=== PATIENT | female | born 1980 | race Caucasian/White ===

== ENCOUNTER 2019-04-03 09:17 | Outpatient (REF) | payer MEDICAID, SELFPAY ==
--- NOTE | 2019-04-03 08:45 | PAPFT_PTH ---
PATIENT: Joaquim Dunn LOC: [facility] U#:[id number] AGE/SX: 38/F ROOM: RE04/03/[address]: Jax Conklin : 1980 BED: DIS: 04/03/2019 SPEC #: [id number] RECD: 04/03/19 12:59 STATUS: LARS REQ #: [id number] CARROL: 04/03/19 08:[address]: Jxa Conklin DEPT: [facility] Cytology RECD BY: Syeda Gamez Tissues: 1 - CX/ENDOCX FOR PAP SMEARS Procedures: PAP THIN PREP/[facility] Screening HPV DNA PROBE Comments: [id number]
== END 2019-04-03 09:37 ==
LOC: NCHCN 09:17
PROVIDERS: PCP Nurse Practitioner Family; Visit Provider Nurse Practitioner Family
DX: Z12.4 Encounter for screening for malignant neoplasm of cervix (principal); Z11.51 Encounter for screening for human papillomavirus (HPV)
CPT/HCPCS: 88142; 87624

== ENCOUNTER 2019-04-14 15:36 | Outpatient (REF) | payer MEDICAID, SELFPAY ==
[2019-04-14 16:25] LABS: Clarity CLEAR; Mononuclear Cells 96 % (0-0); Nucleated Cells 384 /MM3 (0-0); Polynuclear Cells 4 % (0-0); Source R KNEE
== END 2019-04-14 15:56 ==
LOC: NCHCN 15:36
PROVIDERS: PCP Nurse Practitioner Family; Visit Provider Family Medicine
DX: M25.462 Effusion, left knee (principal)
CPT/HCPCS: 89051; 89060

== ENCOUNTER 2019-04-17 07:16 | Outpatient (CLI) | payer MEDICAID, SELFPAY ==
--- NOTE | 2019-04-17 08:23 | DI.RAD_ITS ---
SYMPTOM/DIAGNOSIS: PAIN M25.562, EFFUSION LT KNEE M25.462 RIGHT KNEE: The joint spaces are well maintained. There may be a small joint effusion. There are no significant degenerative changes. There is a small fibrous cortical defect of the proximal fibula. IMPRESSION: question of a small joint effusion.
== END 2019-04-17 07:36 ==
PROVIDERS: PCP Nurse Practitioner Family; Visit Provider Family Medicine
DX: M25.562 Pain in left knee (principal)
CPT/HCPCS: 73562

== ENCOUNTER 2019-06-19 14:15 | Outpatient (REF) | payer MEDICAID, SELFPAY ==
[2019-06-19 19:08] LABS: TSH (W/Ref FT4) 1.19 uIU/mL (0.36-3.74)
== END 2019-06-19 14:35 ==
LOC: NCHCN 14:15
PROVIDERS: PCP Nurse Practitioner Family; Visit Provider Nurse Practitioner Family
DX: E01.0 Iodine-deficiency related diffuse (endemic) goiter (principal)
CPT/HCPCS: 84443

== ENCOUNTER 2019-06-29 01:16 | Outpatient (CLI) | payer MEDICAID, SELFPAY ==
--- NOTE | 2019-06-29 12:00 | DI.US_ITS ---
EXAM: US THYROID CLINICAL HISTORY: THYROMEGALY E01.0 TECHNIQUE: Ultrasound performed using standard protocol. COMPARISON: No previous for comparison. FINDINGS: Right lobe measures 5.4 x 1.5 x 1.2 cm. It is homogeneous. There is normal blood flow. No discrete mass is identified. The left lobe measures 3.7 x 1.1 x 1.5 cm. It is homogeneous. There is a 0.6 by 0.3 by 0.5 cm hypoec hoic well circumscribed nodule in the left lobe of the thyroid gland. There is peripheral blood flow noted. The isthmus is within normal limits at 2.2 mm. IMPRESSION: Solitary 0.6 cm hypoechoic nodule in the left lobe of the thyroid gland. No sonographically suspicio us findings are present.
== END 2019-06-29 01:36 ==
PROVIDERS: PCP Nurse Practitioner Family; Visit Provider Nurse Practitioner Family
DX: E01.0 Iodine-deficiency related diffuse (endemic) goiter (principal); E04.1 Nontoxic single thyroid nodule
CPT/HCPCS: 76536

== ENCOUNTER 2021-06-08 13:03 | Outpatient (REF) | payer MEDICAID, SELFPAY ==
[2021-06-08 19:12] LABS: Abs Immature Grans 0.04 10^3/uL (0.0-0.06); Absolute Basophil Count 0.09 10^3/uL (0.0-0.2); Absolute Lymphocyte Count 3.22 10^3/uL (1.2-3.4); Absolute Monocyte Count 0.65 10^3/uL (0.1-0.8); Absolute Neutrophil Count 7.66 10^3/uL (1.2-6.7); Basophils % 0.8; Eosinophils % 1.4; HCT 41.1 % (36.0-46.0); HGB 14.2 g/dL (11.2-15.7); Immature Grans % 0.3; Lymphocytes % 27.2; MCH 30.9 pg (27.0-33.0); MCHC 34.5 % (32.0-36.0); MCV 89.3 fL (80-95); MPV 11.6 fL (8.0-11.0); Monocytes % 5.5; Neutrophils % 64.8; Nucleated RBC 0 %; Platelet Count 289 10^3/uL (130-400); RDW 11.9 % (11.7-14.6); RDW-SD 38.4 fL; WBC 11.82 10^3/uL (4.4-10.8)
[2021-06-08 19:18] LABS: Absolute Eosinophil Count 0.17 10^3/uL (0.0-0.7)
[2021-06-08 19:25] LABS: ALT 31 U/L (14-59); AST 18 U/L (15-37); Albumin 3.7 g/dL (3.4-5.0); Alkaline Phosphatase 95 U/L (46-116); BUN 9 mg/dL (7-18); Bilirubin, Total 0.3 mg/dL (0.2-1.0); CREATININE 0.9 mg/dL (0.55-1.02); Calcium 8.7 mg/dL (8.5-10.1); Chloride 105 mmol/L (98-107); Glucose 103 mg/dL (74-106); Magnesium 2.1 mg/dL (1.8-2.4); Potassium 4.2 mmol/L (3.5-5.1); Sodium 141 mmol/L (136-145); TSH (W/Ref FT4) 2.35 uIU/mL (0.36-3.74); Total Protein 6.7 g/dL (6.4-8.2)
[2021-06-09 17:21] LABS: FSH 5.5 mIU/mL (See Note); LH 5.6 mIU/mL (See Note)
[2021-06-10 09:34] LABS: HIV-1/2 Ag & Ab Screen Negative (Negative)
[2021-06-12 12:03] LABS: Hepatitis C Ab w Rflx HCV PCR Negative (Negative)
== END 2021-06-08 13:04 | disposition home or self-care (01) ==
LOC: NCHCN 13:03
PROVIDERS: PCP Nurse Practitioner Family; Visit Provider Family Medicine
DX: R61 Generalized hyperhidrosis (principal); R25.2 Cramp and spasm; Z11.4 Encounter for screening for human immunodeficiency virus [HIV]; Z11.59 Encounter for screening for other viral diseases
CPT/HCPCS: 80053; 86803; 87389; 83001; 83002; 83735; 84443; 85025

== ENCOUNTER 2021-07-12 01:53 | Outpatient (CLI) | payer MEDICAID, SELFPAY ==
--- NOTE | 2021-07-12 07:00 | DI.US_ITS ---
Exam(s) US THYROID EXAM: US THYROID CLINICAL HISTORY: THYROID NODULE E04.1 TECHNIQUE: Ultrasound performed using standard protocol. COMPARISON: US US THYROID from 06/29/2019 FINDINGS: Thyroid ultrasound was performed according to the protocol. Right thyroid lobe measures 5.0 x 1.51.3 cm. Left thyroid lobe measures 3.5 x 1.1 x 1 2 cm. The isthmus is 1.8 millimeters in thickness. There is a 5 millimeter in diameter solid well-circumscribed hypoechoic mass which is wider than tall and has smooth margins and no internal echogenic foci. This lies in the inferior pole of the left t hyroid lobe. This is a TR 4 lesion by TI-RADS classification, no follow up recommended for lesion of this size. IMPRESSION: No suspicious abnormalities identified in the thyroid. DATA REPOSITORY:
--- NOTE | 2021-07-12 08:00 | DI.MAMMO_ITS ---
Exam(s) MAMMO SCREENING EXAM: MAMMO SCREENING CLINICAL HISTORY: SCREENING FOR BREAST CANCER Z12.39 TECHNIQUE: Mammograms were interpreted according to the usual protocol including computer analysis w [employer] CAD system, tomosynthesis and C-view imaging. COMPARISON: FINDINGS: The breasts are heterogeneously dense. No dominant mass or clumped microcalcification is identified in either breast. Today's examination is a baseline examination. IMPRESSION: No specific evidence of malignancy at this time. Routine screening examinations are suggested at yea rly intervals in this age group according to the ACR guidelines. BI-RADS Category 1 - Negative Breast Density - Category C - Heterogeneously dense
== END 2021-07-12 02:13 ==
PROVIDERS: PCP Nurse Practitioner Family; Visit Provider Family Medicine
DX: Z12.31 Encounter for screening mammogram for malignant neoplasm of breast (principal); E04.1 Nontoxic single thyroid nodule; R92.8 Other abnormal and inconclusive findings on diagnostic imaging of breast
CPT/HCPCS: 77063; 77067; 76536

== ENCOUNTER 2021-11-27 20:03 | Outpatient (REF) | payer MEDICAID, SELFPAY ==
[2021-11-27 20:41] LABS: ESR 18 mm/hr (0-20)
[2021-11-27 21:09] LABS: C-Reactive Protein 0.67 mg/dL (0.0-0.3)
[2021-11-27 21:41] LABS: Calculated LDL 164 mg/dL (<100); Cholesterol 251 mg/dL (<200); HDL Cholesterol 46 mg/dL (40-60); Triglyceride 209 mg/dL (<150)
[2021-11-29 08:52] LABS: Cyclic Citrullinated Peptide <2.5 U/mL (<5.0)
[2021-11-30 16:01] LABS: ANA Interpretation Positive (Negative); ANA Titer Pattern 1:160 Speckled
== END 2021-11-27 20:04 | disposition home or self-care (01) ==
LOC: NCHCN 20:03
PROVIDERS: PCP Nurse Practitioner Family; Visit Provider Family Medicine
DX: E78.5 Hyperlipidemia, unspecified (principal); M25.461 Effusion, right knee
CPT/HCPCS: 80061; 85652; 86200; 86038; 86140

== ENCOUNTER → 2021-12-04 01:16 | Outpatient (CLI) | payer MEDICAID, SELFPAY ==
--- NOTE | 2021-12-04 | DI.RAD_ITS ---
Exam(s) XR KNEE RT 3V AP,LAT,SANTOS EXAM: XR KNEE RT 3V AP,LAT,SANTOS CLINICAL HISTORY: EFFUSION RT KNEE, M25.461. TECHNIQUE: 2D digital imaging was performed. Three views. COMPARISON: CR XR knee LT 3V AP,lat,santos from 04/17/2019 FINDINGS: BONES: No acute fracture is present. No bony destructive lesion is seen. JOINTS: The knee is normally aligned. No joint effusion is seen. SOFT TISSUE: Normal. IMPRESSION: Unremarkable radiographs of the right knee. DATA REPOSITORY: RADIATION DOSE DELIVERED:
== END ==
PROVIDERS: PCP Nurse Practitioner Family; Visit Provider Family Medicine
DX: M25.461 Effusion, right knee (principal)
CPT/HCPCS: 73562

== ENCOUNTER 2023-01-03 17:07 | Emergency (ER) | payer MEDICAID, SELFPAY ==
[2023-01-03 17:17] VITALS: BP 144/99; PULSE 87; RESP 18; TEMP 37.1; O2SAT 97
--- NOTE | 2023-01-03 17:30 | DI.RAD_ITS ---
Exam(s) XR ANKLE RT COMPLETE XR FOOT RT COMPLETE EXAM: XR FOOT RT COMPLETE and XR ankle RT complete CLINICAL HISTORY: right foot and ankle pain after fall. TECHNIQUE: 2D digital imaging was performed of the right foot. Six images were obtained. AP, obliq ue and lateral views were obtained. COMPARISON: CR,XR XR ANKLE RT COMPLETE from 01/03/2023 FINDINGS: BONES: There is a minimally displaced fracture at the tip of the lateral malleolus. No bony destruct frandy lesion is seen. JOINTS: No dislocation present. SOFT TISSUE: There is soft tissue swelling of the foot and ankle. IMPRESSION: 1. Minimally displaced fracture involving the tip of the lateral malleolus. No other fracture or dis location is seen in the foot or ankle. 2. Soft tissue swelling of the foot and ankle. DATA REPOSITORY: RADIATION DOSE DELIVERED:
[2023-01-03] MEDS: Acetaminophen 500 MG TAB 1000 MG PO (17:35)
[2023-01-03 18:06] VITALS: BP 156/103
--- NOTE | 2023-01-03 18:17 | DI.VRAD_ITS ---
PROCEDURE INFORMATION: Exam: XR Right Foot Exam date and time: 01/03/2023 5:51 PM Age: 42 years old Clinical indication: Foot; Right; Patient HX: Pain S/P fall TECHNIQUE: Imaging protocol: Radiologic exam of the right foot. Views: 3 or more views. COMPARISON: CR XR KNEE RT 3V AP,LAT,SANTOS 12/04/2021 10:47 AM FINDINGS: Bones/joints: Normal. Soft tissues: There appears to be some swelling over the dorsum of the foot. IMPRESSION: No evidence for fracture. Dictated and Authenticated by: Meme Marshall MD. Ordering:DORIS Landa MD
--- NOTE | 2023-01-03 18:19 | DI.VRAD_ITS ---
PROCEDURE INFORMATION: Exam: XR Right Ankle Exam date and time: 01/03/2023 5:52 PM Age: 42 years old Clinical indication: Ankle; Right; Patient HX: Pain S/P fall TECHNIQUE: Imaging protocol: Radiologic exam of the right ankle. Views: 3 or more views. COMPARISON: CR XR FOOT RT COMPLETE 01/03/2023 5:51 PM FINDINGS: Bones/joints: There is a subtle avulsion fracture of the distal fibula with very minimal distraction. Soft tissues: There is soft tissue swelling at the level of the lateral malleolus. IMPRESSION: Distal fibular avulsion fracture. Dictated and Authenticated by: Meme Marshall MD. Ordering:DORIS Landa MD
--- NOTE | 2023-01-03 19:23 | ED.GENADUL_ITS ---
Discharge Plan Disposition Patient Disposition: Home Discharge Details Clinical Impression: Ankle fracture Primary Care Provider: [facility] ED Provider: Syeda Novak Home Meds and New Rx's Prescriptions: Continued sertraline 100 MG tablet 100 mg PO HS Bupropion HCl 100 MG tablet 150 mg PO BID Loratadine 10 MG TAB.RAPDIS 10 mg PO DAILY Discharge Instructions Additional Instructions: motrin and tylenol as needed for pain ice, elevate no weightbearning until cleared by orthopedics return earlier with new or worsening complaints Stand Alone Forms: Work Release Referrals: Mario Flor MD [ [facility] STAFF PHYSICIAN] - Discharge Data Discharge Date/Time-TO BE ENTERED AT DEPARTURE: 01/03/23 18:22 Medical Decision Making This 42-year-old female presents today with right ankle swelling and pain, x-ray was ordered secondary to exam and presentation Patient with lateral fibula fracture distally, placed in a boot and given crutches Ibuprofen and Tylenol as needed pain, small amount of oxycodone supplied Return precautions reviewed and patient expressed understanding Referral to orthopedics applied HPI General Date/Time Provider Initiated Documentation: 01/03/23 17:19 . HPI Narrative: This 42-year-old female presents with ankle injury, twisted her ankle just prior to arrival. She fell down 5 stairs and landed predominantly on the affected ankle. Denies any head injury or neck pain. Denies chance of . Denies history of coagulopathy, chest pain, abdominal pain. Able to ambulate with significant pain. Still lives to 5 W. I thought maybe Related Data Home Medications Medication Instructions Recorded Confirmed Bupropion HCl 150 mg PO BID 02/12/17 01/03/23 Loratadine 10 mg PO DAILY 02/12/17 01/03/23 sertraline 100 mg tablet 100 mg PO HS 02/12/17 01/03/23 Allergies Allergy/AdvReac Type Severity Reaction Status Date / Time guaifenesin [From Quibron] Allergy Intermediate swelling/ra Unverified 01/03/23 17:30 sh theophylline [From Quibron] Allergy Intermediate swelling/ra Unverified 01/03/23 17:30 General Stated Complaint: Orthopedic CHRIS: 3 PFSH All Active Problems (Updated 01/03/23 @ 18:02 by CAL Stallworth) Ankle fracture (Acute) Medical History (Updated 01/03/23 @ 18:02 by CAL Stallworth) Contraceptive management Pt wants to stop Nuva Ring and have permanent sterilization. Depression stable. Hyperlipidemia OAB (overactive bladder) stable with meds. Tobacco use Pt advised to quit. Precontemplative stage of quitting. Surgical History (Updated 06/04/18 @ 14:36 by Avaz GA) Dilation and curettage Family History (Updated 02/13/17 @ 11:02 by Norma Dhillon MD) Other Hyperlipidemia Social History Smoking/Tobacco Use Status: Current every day Tobacco Type: cigarettes Smoking risk assessment performed?: Yes Drug use: Daily Substance use type: marijuana Do you feel safe at home: Yes Do you feel safe in your relationship?: Yes Exam Narrative Exam Narrative: 42-year-old female with swelling and pain to right lateral ankle and foot No tenderness to right ankle, no tenderness to lumbar spine, thoracic, or cervical spine, no visible sign of head injury or additional trauma Neurovascularly intact Course Vital Signs Vital signs: Vital Signs Temperature 37.1 C 01/03/23 17:17 Pulse 87 01/03/23 17:17 Respiratory Rate 18 01/03/23 17:17 Blood Pressure 144/99 H 01/03/23 17:17 Pulse Oximetry 97 01/03/23 17:17 Temperature 37.1 C 01/03/23 17:17 Pulse 87 01/03/23 17:17 Respiratory Rate 18 01/03/23 17:17 Respiratory Effort Normal 01/03/23 17:21 Blood Pressure 156/103 H 01/03/23 18:06 Blood Pressure Position Sitting 01/03/23 17:17 Pulse Oximetry 97 01/03/23 17:17 Oxygen Delivery Method Room Air 01/03/23 17:17 Oxygen Flow Rate 0 01/03/23 17:17 Pain Level 7 01/03/23 17:17
--- NOTE | 2023-01-04 01:15 | NUR.NOTE ---
went into pt chart to get demographics to send out work note home Nursing Note:
== END 2023-01-03 18:22 | disposition home or self-care (01) ==
PROVIDERS: Emergency Provider Physician Assistant; PCP Family Medicine
DX: S89.301A Unspecified physeal fracture of lower end of right fibula, initial encounter for closed fracture (principal); W10.8XXA Fall (on) (from) other stairs and steps, initial encounter
CPT/HCPCS: 99283; 73610; 73630; 99284

== ENCOUNTER → 2023-06-18 01:24 | Outpatient (CLI) | payer MEDICAID, SELFPAY ==
--- NOTE | 2023-06-18 | DI.MAMMO_ITS ---
Exam(s) MAMMO SCREENING EXAM: MAMMO SCREENING CLINICAL HISTORY: SCREENING, Z12.39 TECHNIQUE: Mammograms were interpreted according to the usual protocol including computer analysis w [employer] CAD system, tomosynthesis and C-view imaging. COMPARISON: 2020 FINDINGS: The breasts are composed of heterogeneously dense fibroglandular densities, Breast Density category C . No suspicious masses or suspicious microcalcifications are seen. No skin thickening or abnormal axillary lymph nodes are seen. There has been no significant change from prior exams. IMPRESSION: BI-RADS Category 1, Negative mammogram. Yearly screening mammography is recommended. Breast Density Category C, heterogeneously Dense. The mammogram demonstrates the patient's breast tissue is dense. Dense breast tissue is very common a nd is not abnormal but dense breast tissue can make it harder to find cancer on a mammogram. Also, de nse breast tissue may increase breast cancer risk. This information about the result of the mammogram report was provided to the patient to raise their awareness. Use this report when you speak with the patient about their risks for breast cancer, which includes their family history. At that time, you may recommend additional screening tests (Ultrasound or MRI) as they might be useful based on their r isk. A negative radiographic report should not delay biopsy if a dominant or clinically suspicious mass is present. Up to ten percent of cancers are not identified on mammography. A negative report may reinforce clinical impression. Adenosis and dense breasts may obscure an underlying neoplasm. False positive reports average 6 to 10%.
== END ==
PROVIDERS: PCP Family Medicine; Visit Provider Family Medicine
DX: Z12.31 Encounter for screening mammogram for malignant neoplasm of breast (principal); R92.333 Mammographic heterogeneous density, bilateral breasts
CPT/HCPCS: 77063; 77067

== ENCOUNTER 2023-09-09 16:39 | Outpatient (REF) | payer MEDICAID, SELFPAY ==
--- NOTE | 2023-09-09 15:15 | PAPFT_PTH ---
PATIENT: Joaquim Dunn LOC: [facility] U#:[id number] AGE/SX: 43/F ROOM: RE09/09/[address]: [facility] [place] : 1980 BED: DIS: 09/09/2023 SPEC #: [id number] RECD: 09/09/23 18:01 STATUS: LARS REPhuc #: [id number] CARROL: 09/09/23 15:[address]: [facility] DEPT: [facility] Cytology RECD BY: Syeda Gamez Tissues: 1 - CX/ENDOCX FOR PAP SMEARS Procedures: PAP THIN PREP/UVM Screening HPV DNA PROBE Comments: [id number]
[2023-09-09 19:09] LABS: HCT 40.9 % (36.0-46.0); HGB 14.6 g/dL (11.2-15.7); MCH 30.7 pg (27.0-33.0); MCHC 35.7 % (32.0-36.0); MCV 86 fL (80-95); Platelet Count 168 10^3/uL (130-400); RBC 4.76 10^6/uL (3.93-5.22); RDW 11.9 % (11.7-14.6); RDW-SD 37.3 fL; WBC 10.17 10^3/uL (4.4-10.8)
[2023-09-09 19:20] LABS: Hemoglobin A1C 5.3 % (<5.7)
[2023-09-09 19:23] LABS: BUN 6 mg/dL (7-18); CREATININE 0.9 mg/dL (0.55-1.02); Calcium 8.8 mg/dL (8.5-10.1); Chloride 104 mmol/L (98-107); Estimated GFR 81.35 (mL/min/1.73m2); Glucose 96 mg/dL (74-106); Potassium 4.1 mmol/L (3.5-5.1); Sodium 138 mmol/L (136-145); TSH 2.63 uIU/mL (0.36-3.74)
[2023-09-09 19:42] LABS: FREE T4 0.88 ng/dL (0.76-1.46)
== END 2023-09-09 16:40 | disposition home or self-care (01) ==
LOC: NCHCN 16:39
PROVIDERS: PCP Family Medicine; Visit Provider Family Medicine
DX: Z01.419 Encounter for gynecological examination (general) (routine) without abnormal findings (principal); Z12.4 Encounter for screening for malignant neoplasm of cervix; Z13.1 Encounter for screening for diabetes mellitus; I10 Essential (primary) hypertension
CPT/HCPCS: 80048; 85027; 88142; 83036; 84439; 84443; 87624

== ENCOUNTER 2024-09-14 17:29 | Outpatient (REF) | payer MEDICAID, SELFPAY ==
--- OUTSIDE RECORDS SUMMARY | 2024-09-14 17:31 | XMS_ITS | Continuity of Care Document ---
Author Organization [facility] Address [address] [place] [address] Care Team Providers Care Nca Certified Concierge Name Role Phone [facility] Primary Care Physician Encounter NCTY_DE Date(s): 01/08/24 - 01/08/24 [facility] [address] [place] [address] Discharge Disposition: Home Allergies, Adverse Reactions, Alerts Substance Reaction Severity Status Quibron Severe Active Assessment and Plan Future Appointments Medications buPROPion 150 mg/12 hours (SR) oral tablet, extended release 150 mg = 1 tab, Oral, BID, # 60 tab, 0 Refill(s) Start Date: 01/06/24 Status: Ordered loratadine 10 mg oral capsule 10 mg = 1 cap, Oral, Daily, # 10 cap, 0 Refill(s) Start Date: 01/06/24 Status: Ordered Omnaris 50 mcg/inh nasal spray 2 sprays, Nasal - Both Sides, Daily, # 12.5 g, 0 Refill(s) Start Date: 01/06/24 Status: Ordered pantoprazole 40 mg oral delayed release tablet 40 mg = 1 tab, Oral, Daily, # 30 tab, 0 Refill(s) Start Date: 01/06/24 Status: Ordered PARoxetine 20 mg oral tablet 20 mg = 1 tab, Oral, Daily, # 30 tab, 0 Refill(s) Start Date: 01/06/24 Status: Ordered solifenacin 10 mg oral tablet 10 mg = 1 tab, Oral, Daily, # 30 tab, 0 Refill(s) Start Date: 01/06/24 Status: Ordered zolpidem 5 mg oral tablet See Instructions, take 1-2 PO night of sleep study if needed, # 2 tab, 0 Refill(s), Pharmacy: [id number], 152.4, cm, 01/08/24 15:20:00 EDT, Height, 72.57, kg, 01/08/24 15:23:00 EDT, Weight Dosing Start Date: 01/08/24 Status: Ordered Problem List Condition Confirmation Course Effective Dates Status H ealth Status Informant Adjustment disorder with mixed anxiety and depressed mood Confirmed Active Acute allergic rhinitis Confirmed Active Anxiety Confirmed Active Bilateral hearing loss Confirmed Active Cramp in lower leg Confirmed Active Essential hypertension Confirmed Active Exercise-induced asthma Confirmed Active GERD without esophagitis Confirmed Active Hyperlipidemia Confirmed Active Insomnia Confirmed Active IBS (irritable bowel syndrome) Confirmed Active Migraine Confirmed Active Urinary incontinence, mixed Confirmed Active Non-toxic uninodular goiter Confirmed Active Obesity Confirmed Active Acute recurrent otitis media Confirmed Active Restless leg syndrome Confirmed Active Smoker Confirmed Active Snoring Confirmed Active Tremor Confirmed Active Social History Social History Type Response Tobacco Never tobacco user T obacco Use:. 5 ciggs daily per day. Sex Patient Care team information Care Team Personnel Name: [facility] MD Position: No Access Member Role: Primary Care Physician Address: Address: Family Medicine [address] [place] [address] [place], [place] [address] Care Team Related Persons Name: MARCOS HUNTER Address: Alternate [address] [facility] [id number] Address: Home [address] [place], [place] [id number] Address: Mailing [address] [place], [place] [id number]
--- OUTSIDE RECORDS SUMMARY | 2024-09-14 17:32 | XMS_ITS | Encounter Summary ---
Author Organization [facility] Address [address] [place] [address] Care Team Providers Care Aviation Metalsmith Name Role Phone Unavailable Primary Care Provider Unavailabl e Encounter Details Date Type Department Care Team (Late st Contact Info) Description 05/11/2004 Results Only [facility] conversion [address] [place] [address] Neftaly Stevenson, [employer] [address] [place], [place] [id number] Social History Tobacco Use Types Packs/Day Years Used Date Smoking Tobacco: Never Assessed Comments Unknown Sex and Gender Information Value Date Recorded Sex Assigned at Not on file Legal Sex Female 17:25 EST Gender Identity Not on file Sexual Orientation Not on file documented as of this encounter Plan of Treatment Not on file documented as of this encounter Procedures Procedure Name Priority Date/Time Associated Diagnosis Comments CYTOPATHOLOGY Routine 05/11/2004 0:00 EDT documented in this encounter Results * CYTOPATHOLOGY (05/11/2004 0:00 EDT) Pathology Report: CYTOPATHOLOGY REPORT Reports generated via electronic interface contain original data; however they are lacking the format of the original report. Caution should be taken when reading/interpreti ng unformatted reports. Name: ? PASCUAL BOYER ? Accession #: ? [id number] : ? 1980 (Age: 24) ??F ?Collect Date: ? 05/11/2004 Location: ? [facility] ? Receive Date: ? 05/15/2004 Provider: ?NEFTALY STEVENSON ANP Copy to: ? Specimen/Source: ?ThinPrep Pap Test, Endocervix Last Menstrual Period: ? 04/12/04 Menstrual/Pregnanc y Status: ? Other: ? HPVA - HPV testing requested if ASC-US on the current ThinPrep Pap test. ? SPECIMEN ADEQUACY ? Satisfactory for Evaluation - transformation zone component absent GENERAL CATEGORIZATION ? Negative for Intraepithelial Lesion or Malignancy ? Document reviewed and electronically signed by: ? SASHA Dye(ASCP) ? Report Date: ??05/18/2004 14:01 End of Report [facility] 05/11/2004 05/15/2004 us Neftaly Stevenson [employer] PATHOLOGY ORDERABLES Fin al Result [facility] [address] [place] [address] documented in this encounter Visit Diagnoses Not on filedocumented in this encounter
--- OUTSIDE RECORDS SUMMARY | 2024-09-14 17:32 | XMS_ITS | Clinical Summary ---
Author Organization [facility] Address One [facility] Jose De Jesus [facility] [address] Care Team Providers Care Installment Loan Collector Name Role Phone Santa Rome MD Primary Care Provider [phone] Allergies No known active allergies Medications Medication Sig Dispensed Refills Start Date End Date Status buPROPion (WELLBUTRIN) 100 mg Tablet Take 100 mg by mouth 2 times daily. Active atorvastatin (LIPITOR) 40 mg Tablet Take 40 mg by mouth daily. Active oxybutynin (DITROPAN) 5 mg Tablet Take 5 mg by mouth 2 times daily. Active albuterol 90 mcg/actuation HFA Aerosol Inhaler Inhale 2 puffs into the lungs every 4 hours as needed for Wheezing, Shortness of Breath or Cough. 1 Inhaler 1 12/03/2018 Active Ciclesonide (OMNARIS) 50 mcg Goessel, Non-Aerosol 2 sprays each nostril once daily 12.5 g 3 01/16/2019 Active Additional Information Patient not taking.Reported on 06/16/2024 acetaminophen (TYLENOL) 500 mg Tablet Take 500 mg by mouth every 6 hours as needed for Pain. Active PARoxetine (PAXIL) 10 mg Tablet 20 mg. 0 02/16/2019 Active dicyclomine (BENTYL) 10 mg Capsule Take 1 capsule by mouth 4 times daily as needed. 20 capsule 3 07/01/2019 Active Additional Information Patient not taking.Reported on 03/05/2023 pantoprazole (PROTONIX) 40 mg Tablet, Delayed Release (E.C.)Indications:G astroesophageal reflux disease, esophagitis presence not specified Take 1 tablet by mouth 2 times daily (before meals). 60 tablet 11 07/01/2019 Active oxyCODONE (ROXICODONE) 5 mg Tablet Take 1 tablet by mouth every 4 hours as needed for Pain. Taper this medication down in the upcoming days. Do not take if not needed. 10 tablet 07/03/2019 Active Additional Information Patient not taking.Reported on 03/05/2023 mupirocin (BACTROBAN) 2 % Ointment 0.5 g by Nasal route 2 times daily. Follow discharge instructions. 10 g 3 07/03/2019 Active Additional Information Patient not taking.Reported on 03/05/2023 solifenacin (Vesicare) 10 mg tablet Take 10 mg by mouth daily. 01/29/2023 Active loratadine (Claritin) 10 mg Tablet Take 10 mg by mouth daily. 12/14/2022 Active Magnesium Oxide 500 mg tablet Take 500 mg by mouth daily. 11/17/2022 Active Active Problems Problem Noted Date Diagnosed Date Rhinitis, nonallergic, chronic 12/15/2018 Mild intermittent asthma, uncomplicated 12/16/19 19 Gastroesophageal reflux disease 12/15/2018 Elevated blood pressure reading 12/15/2018 Cigarette nicotine dependenc e with nicotine-induced disorder 12/15/2018 Encounters Date Type Department Care Team Description 07/27/2024 Telephone [place] [id number] Vanesa Zamudio 06/16/2024 8:40 AM EDT Office Visit [place] [phone] Alexis Freed MD Cholesteatoma, right 06/16/2024 Travel from Last 3 Months Family History Medical History Relation Comments Allergic Rhinitis Maternal Aunt Asthma Maternal Aunt Relation Status Comments Maternal Aunt Social History Tobacco Use Types Packs/Day Years Used Date Smoking Tobacco: Every Day Cigarettes 0.3 20 Smokeless Tobacco: Never Comments:one pack a week Alcohol Use Standard Drinks/Week Comments Not Currently 0 (1 standard drink = 0.6 oz pur e alcohol) Sex and Gender Information Value Date Recorded Sex Assigned at Female 04/13/2024 11:52 PM EDT Gender Identity Female 04/13/2024 11:52 PM EDT Sexual Orientation Not on file Last Filed Vital Signs Vital Sign Reading Time Taken Comments Blood Pressure 124/75 07/03/2019 4:00 PM EST Pulse 90 07/03/2019 4:00 PM EST Temperature 37.5 ??C (99.5 ??F) 07/03/2019 12:[address] Respiratory Rate 16 07/03/2019 1:02 PM EST Oxygen Saturation 98% 07/03/2019 4:00 PM EST Inhaled Oxygen Concentration - - Weight 72.6 kg (160 lb) 06/16/2024 8:21 AM EDT Height 152.4 cm (5') 06/16/2024 8:21 AM EDT Body Mass Index 31.25 06/16/2024 8:21 AM EDT Plan of Treatment Health Maintenance Due Date Last Done Comments HIV screen 1998 Hepatitis C Screening 1998 Hepatitis B vaccine (0-59 yrs) (1) 1999 Pneumococcal Vaccine: At-Risk 5-49yrs (1 of 2 - PCV) 0 1999 Tetanus/Diphtheria/Pertussis Vaccines (1 - Tdap) 05/13 HPV test 2010 PAP Smear 2010 Breast Cancer Share Decision Needed 2020 Breast Cancer screening 2020 Diabetes Screening (HgbA1C or Glucose) 03/31/2022 Covid-19 Vaccine ( - season) 2024 Influenza (Flu) vaccine (1 o f 1 - Influenza standard series) 04/19/2024 Medical Devices Implanted Type Area [employer] [facility] Director Device Identifier Shelf Expiration Date Model / Serial / Lot Tube,Drain,Go ode T-Tube ([id number]) - [id number] Implanted:Qty : 1 on 02/12/2019 by Alexis Freed MD at [facility] IMPLANTS Right: Ear [employer] 11/06/2025 [id number] / / [id number] Tube,Drain,Go ode T-Tube ([id number]) - [id number] Implanted:Qty : 1 on 02/12/2019 by Alexis Freed MD at [facility] IMPLANTS Left: Ear [employer] 11/06/2025 [id number] / / [id number] Procedures Procedure Name Priority Date/Time Associated Diagnosis Comments COMPREHENSIVE METABOLIC PANEL Routine 03/31/2019 11:25 AM EDT Chronic abdominal pain from Last 3 Months or Most Recently Relevant to Health Maintenance Results * (ABNORMAL) Comprehensive metabolic panel (non-fasting) (03/31/2019 11:25 AM EDT) Glucose 97 65 - 199 mg/dL [facility] Comment:Diabetes: >=200 mg/d L plus symptoms Blood Urea Nitrogen 7(L) 8 - 18 mg/dL [facility] Creatinine 0.80 0.70 - 1.20 mg/dL [facility] Sodium 139 135 - 145 mmol/L [facility] Potassium 4.1 3.5 - 5.0 mmol/L [facility] Comment: Please note: ??Patients with WBC >100,000 may have falsely elevated Potassium levels. ??For accurate Potassium quantification in these patients send serum separator tube (gold top) for subsequent determinations. ??Contact the Clinical Chemistry Laboratory if there are any questions. Chloride 104 98 - 107 mmol/L [facility] Carbon Dioxide 27 22 - 31 mmol/L [facility] Anion Gap 8 5 - 15 mmol/L [facility] Calcium 8.9 8.5 - 10.5 mg/dL [facility] Protein, Total 7.4 6.1 - 8.0 gm/dL [facility] Albumin 4.2 3.2 - 5.2 gm/dL [facility] Aspartate Aminotransferase 13 0 - 30 unit/L [facility] Alanine Aminotransferase 16 0 - 30 unit/L [facility] Alkaline Phosphatase 113(H) 35 - 105 unit/L [facility] Bilirubin, Total 0.4 0.2 - 1.3 mg/dL [facility] Est Glomerular Filtration Rate 94 >=60 mL/min/1. 73 m?? [facility] Comment: The eGFR was calculated using the CKD-EPI equation. As with all creatinine based estimates of kidney function, eGFR values calculated with the CKD-EPI equation are not accurate in patients with acute kidney failure, extremes of body mass or the acutely ill. [email or web address] my [email or web address] eGFR 108 >=60 mL/min/1. 73 m?? [facility] Comment: The eGFR was calculated using the CKD-EPI equation. As with all creatinine based estimates of kidney function, eGFR values calculated with the CKD-EPI equation are not accurate in patients with acute kidney failure, extremes of body mass or the acutely ill. [email or web address] Blood specimen (specimen) 03/31/2019 11:25 AM EDT 03/31/2019 11:33 AM EDT Narrative Resulting Agency Comment Spec In Lab Bernadette Garcia MD CHEMISTRY ORDERAB LES [facility] [place] [address] from Last 3 Months or Most Recently Relevant to Health Maintenance Advance Directives * Full Code (Latest Code Status on File) Date Activated Date Inactivated Comments 02/12/2019 9:17 AM 02/12/2019 1:29 PM Question Answer Comments Does patient have capacity to make decision: Yes Care Teams Installment Loan Collector Relationship Specialty Start Date End Date Santa Rome MD [address] [place] [address] PCP - General Family Medicine 06/17/21
--- OUTSIDE RECORDS SUMMARY | 2024-09-14 17:32 | XMS_ITS | Referral Summary ---
Author Organization [facility] Address [address] [place] [address] Care Team Providers Care Outreach Worker Name Role Phone Unavailable Primary Care Provider Unavailabl e Social History Tobacco Use Types Packs/Day Years Used Date Smoking Tobacco: Never Assessed Interpersonal Safety Answer Date Record ed Physically Hurt Never 04/03/2020 Verbally Threaten Not on file 04/03/2020 Comments Unknown Sex and Gender Information Value Date Recorded Sex Assigned at Not on file Legal Sex Female 17:25 EST Gender Identity Not on file Sexual Orientation Not on file Plan of Treatment Not on file Procedures Procedure Name Priority Date/Time Associated Diagnosis Comments HEPATITIS C AB W REFLEX TO HCV RNA BY PCR Routine 06/08/2021 11:30 EDT from Last 3 Months or Most Recently Relevant to Health Maintenance Results * HEPATITIS C AB W REFLEX TO HCV RNA BY PCR (06/08/2021 11:30 EDT) Hep C Antibody Negative Negative 06/12/2021 11:58 EDT [facility] Blood VENOUS BLOOD / Unknown 06/08/2021 11:30 EDT 06/09/2021 15:49 EDT us Provider Outr Resulting Lab CHEMISTRY & BLOOD GA S ORDERABLES Final Result [facility] [address] [place] [address] from Last 3 Months or Most Recently Relevant to Health Maintenance Insurance MEDICAID [place]
--- OUTSIDE RECORDS SUMMARY | 2024-09-14 17:32 | XMS_ITS | Encounter Summary ---
Author Organization [facility] Address [address] [place] [address] Care Team Providers Care Power Equipment Mechanics Instructor Name Role Phone Unavailable Primary Care Provider Unavailabl e Encounter Details Date Type Department Care Team (Late st Contact Info) Description 06/19/2007 Results Only [facility] [address] [place] [address] Jose Valles MD [address] [place] [address] [address] [place] [address] Social History Tobacco Use Types Packs/Day Years [...] Procedure Name Priority Date/Time Associated Diagnosis Comments HPV DETECTION, HIGH RISK TYPES Routine 06/19/2007 11:47 EDT CYTOPATHOLOGY Routine 06/19/2007 0:00 EDT documented in this encounter Results * HUMAN PAPILLOMA VIRUS DNA TEST (06/19/2007 11:47 EDT) Specimen Description Cervix, ThinPrep vial [facility] Result Quantity not sufficient. [facility] Report Status Final [id number] [facility] 06/19/2007 11:4 7 EDT 06/30/2007 11:47 EST us Jose Valles MD MICROBIOLOGY - GENERAL ORDERABLE S Final Result [facility] [address] [place] [address] * CYTOPATHOLOGY (06/19/2007 0:00 EDT) Pathology Report: CYTOPATHOLOGY REPORT Reports generated via electronic interface contain original data; however they are lacking the format of the original report. Caution should be taken when reading/interpreti ng unformatted reports. Name: ? PASCUAL BOYER ? Accession #: ? [id number] : ? 1980 (Age: 27) ??F ?Collect Date: ? 06/19/2007 Location: ? [facility] ? Receive Date: ? 06/23/2007 Provider: ?JOSE VALLES MD Copy to: ? Specimen/Source: ?ThinPrep Pap Test, Cervix/Endocervix, processed on Bravo[employer] ThinPrep Imaging System, with manual evaluation Last Menstrual Period: ? 03/15/07 Menstrual/Pregnanc y Status: ? Previous Gynecologic Pathology: ? LSIL: 04/25 Other: ? HPVA - HPV testing requested if ASC-US on the current ThinPrep Pap test. ? SPECIMEN ADEQUACY ? Satisfactory for Evaluation - transformation zone component present GENERAL CATEGORIZATION ? Epithelial Cell Abnormality INTERPRETATION ? Squamous Cell Abnormality - Atypical squamous cells, undetermined significance (ASC-US). EDUCATIONAL NOTES/RECOMMENDATI ONS ? [facility] recommends following the 2006 Consensus Guidelines for the Management of Women with Abnormal Cervical Cancer Screening Tests (JLGTD, 2007;11(4):201-222 ). ??Consensus guidelines are available online at www.ASCCP.org. ? Document reviewed and electronically signed by: ? MICHELLE TEIXEIRA MD ? Report Date: ??06/27/2007 18:28 End of Report [facility] 06/19/2007 06/23/2007 us Jose Valles MD PATHOLOGY ORDERABLES Final Resul t [facility] [address] [place] [address] documented in this encounter Visit Diagnoses Not on filedocumented in this encounter
--- OUTSIDE RECORDS SUMMARY | 2024-09-14 17:32 | XMS_ITS | Encounter Summary ---
Author Organization [facility] [place] [address] Care Team Providers Care Anti Tank Missileman Name Role Phone Santa Rome MD Primary Care Provider [phone] Reason for Referral * Audiology Exam (Routine) - Closed Specialty Diagnoses / Procedures Referred By Richard cueva Referred To Contact Audiology Diagnoses Sensory hearing loss, bilateral Santa Rome MD [address] [place] [address] Kathy Morales AUD [facility] [place] [address] Referral ID Status Reason Start Date Expiration Date V isits Requested Visits Authorized [id number] Closed Specialty Service Requested 07/19/2022 07/19/2023 1 1 Encounter Details Date Type Department Care Team (Latest Contact Info) Description 07/19/2022 Transcribe Orders [facility] Incoming Referrals [phone] Santa Rome MD [address] [place] [address] Sensory hearing loss, bilateral Social History Tobacco Use Types Packs/Day Years [...] PM EDT Sexual Orientation Not on file documented as of this encounter Plan of Treatment Scheduled Referrals Name Type Priority Associated Diagnoses Orde r Schedule Referral to Audiology Outpatient Referral Routine Sensory hearing loss, bilateral Ordered: 07/19/2022 documented as of this encounter Visit Diagnoses Diagnosis Sensory hearing loss, bilateral documented in this encounter Care Teams Anti Tank Missileman Relationship Specialty Start Date End Date Santa Rome MD [facility] [address] [place] [address] PCP - General Family Medicine 06/17/21 documented as of this encounter
--- OUTSIDE RECORDS SUMMARY | 2024-09-14 17:32 | XMS_ITS | Encounter Summary ---
Author Organization [facility] Address [address] [place] [address] Care Team Providers Care Medical Charge Entry Specialist Name Role Phone Unavailable Primary Care Provider Unavailabl e Encounter Details Date Type Department Care Team (Latest Contact Info) Description 09/10/2023 Lab Requisition [facility] Pathology & Laboratory Medicine - [facility] [address] [place] [address] Santa Rome MD [address] [place] [phone] Encounter for screening for malignant neoplasm of cervix; Encounter for gynecological examination (general) (routine) without abnormal findings Social History Tobacco Use Types Packs/Day Years [...] Procedure Name Priority Date/Time Associated Diagnosis Comments PAP TEST Today 09/09/2023 15:15 EST Encounter for screening for malignant neoplasm of cervix Encounter for gynecological examination (general) (routine) without abnormal findings HPV DNA DETECTION WITH GENOTYPING, PCR Today 09/09/2023 15:15 EST Encounter for screening for malignant neoplasm of cervix Encounter for gynecological examination (general) (routine) without abnormal findings documented in this encounter Results * HUMAN PAPILLOMAVIRUS (HPV) DETECTION-HIGH RISK TYPES (09/09/2023 15:15 EST) HPV other High Risk types, PCR Negative Negative 09/23/2023 18:56 [facility] Comment:No E6 or E7 mRNA is detected from HPV types 16,18,31,33,35,39,45,51,52,56,58,59,66, and 68 by community development aide mediated amplification. Pap Test CERVIX UTERI STRUCTURE / Unknown 09/09/2023 15:15 EST 09/20/2023 15:50 EST us Santa Rome MD MICROBIOLOGY - GENERAL ORDERABLE S Final Result [facility] [address] [place] [address] * PAP TEST (09/09/2023 15:15 EST) Specimens A. Cervix and/or Endocervix , ThinPrep Imaging System with Manual Evaluation 09/23/2023 18:56 [facility] Specimen Adequacy Satisfactory for Evaluation - transformation zone component present Scant squamous epithelial component due to excess blood. 09/23/2023 18:56 [facility] General Categorization Negative for intraepithelial lesion or malignancy 09/23/2023 18:56 [facility] Attestation . 09/23/2023 18:56 [facility] at 1856 Clinical History See below 09/23/19 24 18:56 [facility] HPV The result for the Human Papillomavirus (HPV) Detection-High Risk Types is Negative. No E6 or E7 mRNA is detected from HPV types 16,18,31,33,35,39 ,45,51,52,56,58,5 9,66, and 68 by community development aide mediated amplification.Ivory ting was performed on specimen [id number] and was resulted on 09/23/2023 1856 EST by NEERU, LAB INSTRUMENT RESULTS IN 09/23/2023 18:56 [facility] Performing Lab [facility] 09/23/2023 18:56 [facility] Scanned Images 09/23/2023 18:56 EST [facility] Pap Test CERVIX UTERI STRUCTURE / Unknown 09/09/2023 15:15 EST 09/10/2023 9:26 EST us Santa Rome MD PATHOLOGY ORDERABLES Final Resul t [facility] [address] [place] [address] documented in this encounter Visit Diagnoses Diagnosis Encounter for screening for malignant neoplasm of cervix Screening for malignant neoplasm of the cervix Encounter for gynecological examination (general) (routine) without abnormal findings documented in this encounter
--- OUTSIDE RECORDS SUMMARY | 2024-09-14 17:32 | XMS_ITS | Encounter Summary ---
Author Organization [facility] [place] [address] Care Team Providers Care Manager Trading Name Role Phone Santa Rome MD Primary Care Provider [phone] Reason for Referral * Diagnostic Test (Routine) - Authorized Specialty Diagnoses / Procedures Referred By Contac t Referred To Contact Radiology Diagnoses Cholesteatoma, right Procedures CT Temporal Bone wo Contrast (Generic) Alexis Freed MD [facility] [place] [address] [facility] [place] [address] Referral ID Status Reason Start Date Expiration Date Visits Requested Visits Authorized [id number] Authorized Specialty Service Requested 4 12/15/2025 1 1 Encounter Details Date Type Department Care Team (Late st Contact Info) Description 06/16/2024 8:40 AM EDT Office [place] [address] Alexis Freed MD [facility] [place] [address] Cholesteatoma, right Social History Tobacco Use Types Packs/Day Years [...] on file documented as of this encounter Last Filed Vital Signs Vital Sign Reading Time Taken Comments Blood Pressure - - Pulse - - Temperature - - Respiratory Rate - - Oxygen Saturation - - Inhaled Oxygen Concentration - - Weight 72.6 kg (160 lb) 06/16/2024 8:21 AM EDT Height 152.4 cm (5') 06/16/2024 8:21 AM EDT Body Mass Index 31.25 06/16/2024 8:21 AM EDT documented in this encounter Progress Notes * Alexis Freed MD - 06/16/2024 8:40 AM EDT Images from the original note were not included. [facility] Otolaryngology - Head and Neck Surgery Alexis Freed MD 06/16/24 8:35 AM [place] [id number] Office Patient Name: Joaquim Dunn Date of : 1980 PCP: Santa Rome MD Reason for Follow Up: Chronic ETD (sniffer) Mixed HL Allergic rhinitis Deviated nasal septum OR 02/12/19 bilateral myringoplasty and t-tube placement Findings: Right sided TM retracted with mucoid effusion in middle ear. Atelectatic drum posteriorly, draped over and adherent to incus. Left sided TM in more neutral position with atelectatic area posteriorly between manubrium and incus, drum draped over and adherent to incus. OR 07/03/19 Septo/ITR/nasal valve Findings: Leftward septal deviation, particularly posteriorly with large posterior septal spur blocking rightnasal passage. Right compensatory turbinate hypertrophy Left nasal valve collapse repaired with endonasal placement of sound installation worker graft Audiogram 03/05/23 Interval history: Here for annual follow up. Thinks right ear is plugged because when she insufflates it doesn't blow through. She tries to equalize it but it continues to feel plugged, even after it inflates. No drainage. No pain. Started wearing hearing aids in 2019, and these are working well. Nose is doing OK. Had a sleep study done and is using a CPAP which is helping a lot. Pertinent Exam Findings: External nose deviates to the right in the lower 2/3. Anterior rhinoscopy shows leftward deviation of the nasal septum with some narrowing of the internal nasal valve despite prior sound installation worker graft placement. Both nasal passages are patent, mild crusting of the anterior nose. Otomicroscopy performed bilaterally. Right side tube had extruded and was removed. TM atelectatic posteriorly with myringoincudopexy. She is able to easily insufflate the middle ear, but continues to feel plugged. Largo of wax arising from pars flaccida. No scutum erosion. 06/16/24 TF midline A>>B bilaterally. Right ear subjectively better than left. Left side with well-positioned and patent t-tube. Pneumatized middle ear. 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 No longer has issues with otorrhea. Right tube is now out and there is evidence of negative middle ear pressure. 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 I recommended CT temporal bone to r/o cholesteatoma and f/u by telemedicine after to discuss replacing t-tube +/- cartilage tympanoplasty with atticotomy. Would need updated audiogram prior to additional surgery. 30 minute encounter for chart review, in person visit, documentation, and care coordination. Alexis Freed MD, [facility] Otolaryngology - Head and Neck Surgery 06/16/24 8:35 AM documented in this encounter Plan of Treatment Scheduled Orders Name Type Priority Associated Diagnoses Orde r Schedule CT Temporal Bone wo Contrast (Generic) Imaging Routine Cholesteatoma, right Expected: 06/17/2024, Expires: 12/17/2024 documented as of this encounter Visit Diagnoses Diagnosis Cholesteatoma, right documented in this encounter Care Teams Manager Trading Relationship Specialty Start Date End Date Santa Rome MD [address] [place] [address] PCP - General Family Medicine 06/17/21 documented as of this encounter
--- OUTSIDE RECORDS SUMMARY | 2024-09-14 17:32 | XMS_ITS | Encounter Summary ---
Author Organization [facility] Address [address] [place] [address] Care Team Providers Care Transfer Knitter Name Role Phone Unavailable Primary Care Provider Unavailabl e Encounter Details Date Type Department Care Team (Late st Contact Info) Description 05/06/2006 Results Only [facility] [place] [facility] [address] [place] [address] Neftaly Stevenson, STATISTICAL TECHNICIAN [address] [place], [place] [phone] Social History Tobacco Use Types Packs/Day Years [...] Priority Date/Time Associated Diagnosis Comments CYTOPATHOLOGY Routine 05/06/2006 0:00 EDT documented in this encounter Results * CYTOPATHOLOGY (05/06/2006 0:00 EDT) Pathology Report: CYTOPATHOLOGY REPORT Reports generated via electronic interface contain original data; however they are lacking the format of the original report. Caution should be taken when reading/interpreti ng unformatted reports. Name: ? PASCUAL BOYER ? Accession #: ? [id number] : ? 1980 (Age: 25) ??F ?Collect Date: ? 05/06/2006 Location: ? [facility] ? Receive Date: ? 05/08/2006 Provider: ?NEFTALY STEVENSON ANP Copy to: ? Specimen/Source: ?ThinPrep Pap Test, Endocervix, processed on [employer] ThinPrep Imaging System, with manual evaluation Last Menstrual Period: ? 04/22/06 Hormonal/Contracep tive Status: ? Yes: Nuva Ring Other: ? HPVA - HPV testing requested if ASC-US on the current ThinPrep Pap test. ? SPECIMEN ADEQUACY ? Satisfactory for Evaluation - transformation zone component present GENERAL CATEGORIZATION ? Negative for Intraepithelial Lesion or Malignancy ? Document reviewed and electronically signed by: ? Mayuri Naqvi, SCT(ASCP) ? Report Date: ??2006 11:23 End of Report [facility] 05/06/2006 05/08/2006 us Neftaly Stevenson STATISTICAL TECHNICIAN PATHOLOGY ORDERABLES Fin al Result [facility] [address] [place] [address] documented in this encounter Visit Diagnoses Not on filedocumented in this encounter
--- OUTSIDE RECORDS SUMMARY | 2024-09-14 17:32 | XMS_ITS | Encounter Summary ---
Author Organization [facility] [place] [address] Care Team Providers Care Lozenge Dough Mixer Name Role Phone Santa Rome MD Primary Care Provider [phone] Encounter Details Date Type Department Care Team (Latest Contact Info) Description 02/26/2023 Travel Social History Tobacco Use Types Packs/Day Years [...] on file documented as of this encounter Visit Diagnoses Not on filedocumented in this encounter Care Teams Lozenge Dough Mixer Relationship Specialty Start Date End Date Santa Rome MD Amanda [address] [place] [address] PCP - General Family Medicine 06/17/21 documented as of this encounter
--- OUTSIDE RECORDS SUMMARY | 2024-09-14 17:32 | XMS_ITS | Encounter Summary ---
Author Organization [facility] Address [address] [place] [address] Care Team Providers Care Truck Rental Clerk Name Role Phone Yolanda Ruiz NP Primary Care Provider [phone] Encounter Details Date Type Department Care Team (Late st Contact Info) Description 01/27/[address] [facility] Laboratory Services - [facility] ([facility]) [address] [place], [place] [phone] Franc Butts MD [address] [place] [phone] Social History Tobacco Use Types Packs/Day Years [...] Procedure Name Priority Date/Time Associated Diagnosis Comments SURGICAL PATHOLOGY Routine 01/27/2013 8:40 EDT documented in this encounter Results * SURGICAL PATHOLOGY (01/27/2013 8:40 EDT) Pathology Report: SURGICAL PATHOLOGY REPORT Reports generated via electronic interface contain original data; however they are lacking the format of the original report. Caution should be taken when reading/interpreti ng unformatted reports. Name: ? PASCUAL PITTS ? Accession #: ? [id number] ? : ? 1980 (Age: 32) ??F ? Collect Date: ? 01/27/2013 ? Location: ? [facility] ? Receive Date: ? 01/28/2013 ? Provider: FRANC BUTTS MD Copy to: ? Final Pathologic Diagnosis: ? Skin of postauricular region, left, excisional biopsy: - ?Follicular cyst, infundibular type. Microscopic Description: ? There is a dermal cyst that is lined by stratified squamous epithelium that matures through a granular layer. ??The cyst is filled with laminated orthokeratin. (Dr. Padron)/rust Document reviewed and electronically signed by: ZOIE ROSALES MD Report ??Date: 01/30/2013 13:43 By the signature above, the attending physician certifies that he/she has personally conducted a gross and/or microscopic examination of the described specimens and rendered or confirmed the above diagnosis. Specimen(s) Received: ? Excisional biopsy skin nodule L postauricular Clinical History: ? Not listed Gross Description: ? Received in formalin labelled Pascual Pitts and skin nodule L excisional biopsy postauricular is an unoriented ellipse of skin which measures 0.7 x 0.5 cm, with a thickness of 0.2 cm. ??The cutaneous surface is light elder and has an eccentrically located pale brown 0.1 cm in diameter macule. ??The resection margin is black inked. ??The specimen is sectioned and submitted entirely as follows: BLOCK PLATT ? 1 ?Two central sections 2 ?Two ends, reverse en face (Selam Stone)/ljn End of Report [facility] 01/27/2013 8:40 EDT 01/28/2013 8:40 EDT us Franc Butts MD PATHOLOGY ORDERABLES Final Resul t Performing Organization Address City/State/[place] Co de Phone Number [facility] [address] [place] [address] documented in this encounter Visit Diagnoses Not on filedocumented in this encounter Care Teams Truck Rental Clerk Relationship Specialty Start Date End Date Yolanda Ruiz NP [address] [place] [phone] PCP - General 11/06/10 08/18/22 documented as of this encounter
--- OUTSIDE RECORDS SUMMARY | 2024-09-14 17:32 | XMS_ITS | Encounter Summary ---
Author Organization [facility] Address [address] [place] [address] Care Team Providers Care Premix Operator Concentrate Name Role Phone Unavailable Primary Care Provider Unavailabl e Encounter Details Date Type Department Care Team (Late st Contact Info) Description 10/06/2010 Results Only [facility] Laboratory Services - [facility] ([facility]) [address] [place], [place] [address] Padmaja Keller CNM [address] [place] [address] Social History Tobacco Use Types Packs/Day Years [...] Priority Date/Time Associated Diagnosis Comments CYTOPATHOLOGY Routine 10/06/2010 0:00 EST documented in this encounter Results * CYTOPATHOLOGY (10/06/2010 0:00 EST) Pathology Report: CYTOPATHOLOGY REPORT ? Reports generated via electronic interface contain original data; ? however they are lacking the format of the original report. ? Caution should be taken when reading/interpreti ng unformatted reports. ? Name: ? MERLIN, PASCUAL L ? Accession #: ? [id number] ? : ? 1980 (Age: 30) ??F ?Collect Date: ? 10/06/2010 ? Location: ? [facility] ? Receive Date: ? 10/09/2010 ? Provider: ANEA LELONG CNM ? Copy to: ? Final Report ? SPECIMEN ADEQUACY ? Satisfactory for Evaluation ? - transformation zone component present ? GENERAL CATEGORIZATION ? Negative for Intraepithelial Lesion or Malignancy ? INTERPRETATION ? Reactive cellular changes associated with inflammation present (includes ?? repair). ? Last Menstural Period: 08/19/2010 ? Menstural/Pregnanc y Status: ? Specimen/Source: ??Pap Test, Cervix/Endocervix, ThinPrep Imaging System with ? manual evaluation ? Document reviewed and electronically signed by: ? MICHELLE TEIXEIRA MD ? Report ??Date: 10/11/2010 16:46 ? HPV with Pap Test ? Date Ordered: ? 10/11/2010 ? Status: ?? Signed Out ?Date Complete: ? 10/17/2010 ? By: ??System Interface ? Date Reported: ? 10/17/2010 ? Interpretation ? RESULT: Negative for HPV types 16, 18, 31, 33, 35, 39, 45, 51, 52, ? 56, 58, 59, and 68. ? Comments ? Document reviewed and electronically signed by: ? System Interface ? Report date: 10/17/2010 ? By the signature above, the attending physician certifies that he/she has ? personally conducted a gross and/or microscopic examination of the described ? specimens and rendered or confirmed the above diagnosis. ? End of Report ? [facility] 10/06/2010 10/09/2010 us Padmaja Keller CNM PATHOLOGY ORDERABLES Final Resul t [facility] [address] [place] [address] documented in this encounter Visit Diagnoses Not on filedocumented in this encounter
--- OUTSIDE RECORDS SUMMARY | 2024-09-14 17:32 | XMS_ITS | Encounter Summary ---
Author Organization [facility] Address [address] [place] [address] Care Team Providers Care Rail Crew Member Name Role Phone Yolanda Ruiz NP Primary Care Provider [phone] Encounter Details Date Type Department Care Team (Late st Contact Info) Description 11/28/2021 Lab Requisition [facility] Pathology & Laboratory Medicine - [address] [phone] Outr Resulting Lab, Provider Social History Tobacco Use Types Packs/Day Years [...] Procedure Name Priority Date/Time Associated Diagnosis Comments CCP ANTIBODIES Routine 11/27/2021 16:07 EDT ANTI NUCLEAR AB (CAMI), IFA Routine 11/27/2021 16:07 EDT documented in this encounter Results * (ABNORMAL) ANTI NUCLEAR AB (CAMI), IFA (11/27/2021 16:07 EDT) CAMI Interpretation Positive(A) Negative 11/30/2021 15:55 EDT [facility] Comment: For titers greater than or equal to 1:160 (except the centromere and nucleolar patterns) it is recommended that specific follow-up autoantibody testing ??(such as for dsDNA and Extractable Nuclear Antigens) be performed on all diffuse and/or speckled patterns NOTE: For add-on testing dsDNA is stable for 7 days refrigerated while Extractable Nuclear Antigens are only stable for 48 hours refrigerated. CAMI Titer and Pattern 1 1:160 Speckled 11/30/2021 15:55 EDT [facility] Blood VENOUS BLOOD / Unknown 11/27/2021 16:07 EDT 11/28/2021 16:48 EDT Narrative [facility] - 11/30/2021 15:55 EDT Results were obtained with the [employer] NOVA Lite HEp-2 CAMI Kit by indirect immunofluorescence. us Provider Outr Resulting Lab IMMUNOLOGY AND SEROL OGY ORDERABLES Final Result Performing Organization Address City/[facility]/[place] Co de Phone Number [facility] [address] [place] [address] * CCP ANTIBODIES (11/27/2021 16:07 EDT) CCP Antibodies <2.5 <5.0 U/mL 11/29/2021 8:47 EDT [facility] Blood VENOUS BLOOD / Unknown 11/27/2021 16:07 EDT 11/28/2021 16:48 EDT us Provider Outr Resulting Lab IMMUNOLOGY AND SEROL OGY ORDERABLES Final Result Performing Organization Address City/[facility]/ZIP Co de Phone Number [facility] [address] [place] [address] documented in this encounter Visit Diagnoses Not on filedocumented in this encounter Care Teams Rail Crew Member Relationship Specialty Start Date End Date Yolanda Ruiz NP [address] [place] [phone] PCP - General 11/06/10 08/18/22 documented as of this encounter
--- OUTSIDE RECORDS SUMMARY | 2024-09-14 17:32 | XMS_ITS | Encounter Summary ---
Author Organization [facility] [place] [address] Care Team Providers Care Freezer Person Name Role Phone Santa Rome MD Primary Care Provider [phone] Encounter Details Date Type Department Care Team (Latest Contact Info) Description 03/05/2023 1:45 PM EDT Office Visit Audiology at [address] [phone] Jany Navarro, ELIUD [facility] [place] [address] Mixed conductive and sensorineural hearing loss, bilateral Social History Tobacco Use [...] on file documented as of this encounter Progress Notes * Jany Navarro, ELIUD - 03/05/2023 1:45 PM [place] [address] Joaquim Dunn was seen today for an audiologic evaluation in conjunction with Dr. Freed. Please refer to audiogram under procedures for details on history, results and recommendations. Ledy Oquendo, Eliud Humanities Department Chair, was present and assisted with this appointment. I was present throughout the patient's visit. Eliud Sepulveda Clinical Nuclear Radiation Engineer [facility] [place] [address] ; documented in this encounter Plan of Treatment Not on file documented as of this encounter Procedures Procedure Name Priority Date/Time Associated Diagnosis Comments COMPREHENSIVE HEARING TEST Routine 03/05/2023 2:05 PM EDT documented in this encounter Results * Comprehensive hearing test (03/05/2023 2:05 PM EDT) 03/05/2023 2:05 PM EDT Narrative [facility] - 03/05/2023 2:05 PM EDT Follow-up with Dr. Freed in ENT as scheduled. Procedure Note Unknown - 03/05/2023 Follow-up with Dr. Freed in ENT as scheduled. [facility] documented in this encounter Visit Diagnoses Diagnosis Mixed conductive and sensorineural hearing loss, bilateral Mixed hearing loss, bilateral documented in this encounter Care Teams Freezer Person Relationship Specialty Start Date End Date Santa Rome MD Amanda [address] [place] [address] PCP - General Family Medicine 06/17/21 documented as of this encounter
--- OUTSIDE RECORDS SUMMARY | 2024-09-14 17:32 | XMS_ITS | Encounter Summary ---
Author Organization [facility] Address [address] [place] [address] Care Team Providers Care Laser Beam Cutter Name Role Phone Rylie Valencia BEHAVIORAL HEALTH CASE MANAGER Primary Care Provider Encounter Details Date Type Department Care Team (Late st Contact Info) Description 12/06/2010 Results Only [facility] - [facility] ([facility]) [address] [place] [address] Rylie Valencia NP [address] [place] [phone] Social History Tobacco Use Types Packs/Day Years Used Date Smoking Tobacco: Never Assessed Comments Unknown Sex and Gender Information Value Date Recorded Sex Assigned at Not on file Legal Sex Female 17:25 EST Gender Identity Not on file Sexual Orientation Not on file documented as of this encounter Plan of Treatment Pending Results Name Type Priority Associated Diagnoses Date /Time CYTOPATHOLOGY Pathology Routine 12/06/2010 0:00 EDT documented as of this encounter Procedures Procedure Name Priority Date/Time Associated Diagnosis Comments PAP TEST- RESULT ONLY Routine 12/06/2010 0:00 EDT documented in this encounter Results * PAP TEST- RESULT ONLY (12/06/2010 0:00 EDT) Pathology Report: CYTOPATHOLOGY REPORT ? Reports generated via electronic interface contain original data; ? however they are lacking the format of the original report. ? Caution should be taken when reading/interpreti ng unformatted reports. ? Name: ? PASCUAL BOYER ? Accession #: ? [id number] ? : ? 1980 (Age: 30) ??F ?Collect Date: ? 12/06/2010 ? Location: ? [facility] ? Receive Date: ? 12/08/2010 ? Provider: RYLIE VALENCIA BEHAVIORAL HEALTH CASE MANAGER ? Copy to: ? Final Report ? SPECIMEN ADEQUACY ? Satisfactory for Evaluation ? - transformation zone component present ? GENERAL CATEGORIZATION ? Negative for Intraepithelial Lesion or Malignancy ? Last Menstural Period: 12/01/2010 ? Specimen/Source: ??Pap Test, Cervix/Endocervix, ThinPrep Imaging System with ? manual evaluation ? Document reviewed and electronically signed by: ? ANIL MOUNT MD ? Report ??Date: 12/14/2010 11:50 ? HPV with Pap Test ? Date Ordered: ? 12/14/2010 ? Status: ?? Signed Out ?Date Complete: ? 12/18/2010 ? By: ??System Interface ? Date Reported: ? 12/18/2010 ? Interpretation ? RESULT: Negative for HPV types 16, 18, 31, 33, 35, 39, 45, 51, 52, ? 56, 58, 59, and 68. ? Comments ? Document reviewed and electronically signed by: ? System Interface ? Report date: 12/18/2010 ? By the signature above, the attending physician certifies that he/she has ? personally conducted a gross and/or microscopic examination of the described ? specimens and rendered or confirmed the above diagnosis. ? End of Report ? [facility] 12/06/2010 12/08/2010 us Rylie Valencia BEHAVIORAL HEALTH CASE MANAGER PATHOLOGY ORDERABLES Final Res ult [facility] [address] [place] [address] documented in this encounter Visit Diagnoses Not on filedocumented in this encounter Care Teams Laser Beam Cutter Relationship Specialty Start Date End Date Rylie Valencia NP [address] [place] [phone] PCP - General 11/06/10 08/18/22 documented as of this encounter
--- OUTSIDE RECORDS SUMMARY | 2024-09-14 17:32 | XMS_ITS | Encounter Summary ---
Author Organization [facility] Address [address] [place] [address] Care Team Providers Care Hand Pleater Name Role Phone Yolanda Ruiz NP Primary Care Provider [phone] Encounter Details Date Type Department Care Team (Latest Contact Info) Description 03/27/2017 11:10 EDT - 03/27/2017 23:59 EDT Hospital Encounter [address] [address] Unknown, Provider, MD Discharge Disposition: Home or Self Care Social History Tobacco Use Types Packs/Day Years Used Date Smoking Tobacco: Never Assessed Comments Unknown Sex and Gender Information Value Date Recorded Sex Assigned at Not on file Legal Sex Female 17:25 EST Gender Identity Not on file Sexual Orientation Not on file documented as of this encounter Discharge Disposition Disposition Code Departure Means Destination Home or Self Retirement documented in this encounter Plan of Treatment Not on file documented as of this encounter Visit Diagnoses Not on filedocumented in this encounter Care Teams Hand Pleater Relationship Specialty Start Date End Date Yolanda Ruiz NP [address] [place] [phone] PCP - General 11/06/10 08/18/22 documented as of this encounter
--- OUTSIDE RECORDS SUMMARY | 2024-09-14 17:32 | XMS_ITS | Encounter Summary ---
Author Organization [facility] Address [address] [place] [address] Care Team Providers Care Pleater Hand Name Role Phone Unavailable Primary Care Provider Unavailabl e Encounter Details Date Type Department Care Team (Latest Contact Info) Description 03/18/2000 9:58 EDT - 03/18/2000 11:59 EDT Hospital Encounter [address] [address] Inderjit Cruz MD Discharge Disposition: Auto Discharge Social History Tobacco Use Types Packs/Day Years Used Date Smoking Tobacco: Never Assessed Comments Unknown Sex and Gender Information Value Date Recorded Sex Assigned at Not on file Legal Sex Female 17:25 EST Gender Identity Not on file Sexual Orientation Not on file documented as of this encounter Discharge Disposition Disposition Code Departure Means Destination Auto Discharge documented in this encounter Plan of Treatment Not on file documented as of this encounter Procedures Procedure Name Priority Date/Time Associated Diagnosis Comments GROUP A STREP CULTURE Routine 03/18/2000 13:58 EDT documented in this encounter Results * CULTURE FOR GROUP A BETA STREPTOCOCCUS (03/18/2000 13:58 EDT) Specimen Description Throat [facility] Result NO GROUP A BETA STREPTOCOCCI ISOLATED [facility] Report Status Final [id number] [facility] 03/18/2000 13:5 8 EDT 03/18/2000 13:58 EDT Inderjit Cruz MD MICROBIOLOGY - GENERAL ORDERABLES Final Result [facility] [address] [place] [address] documented in this encounter Visit Diagnoses Not on filedocumented in this encounter
--- OUTSIDE RECORDS SUMMARY | 2024-09-14 17:32 | XMS_ITS | Encounter Summary ---
Author Organization [facility] Address [address] [place] [address] Care Team Providers Care Property Claims Adjuster Name Role Phone Unavailable Primary Care Provider Unavailabl e Encounter Details Date Type Department Care Team (Late st Contact Info) Description 05/16/2007 Results Only [facility] [address] [place] [address] Jose Valles MD [address] [place] [address] [address] [place] [address] Social History Tobacco Use Types [...] Priority Date/Time Associated Diagnosis Comments CYTOPATHOLOGY Routine 05/16/2007 0:00 EDT documented in this encounter Results * CYTOPATHOLOGY (05/16/2007 0:00 EDT) Pathology Report: CYTOPATHOLOGY REPORT Reports generated via electronic interface contain original data; however they are lacking the format of the original report. Caution should be taken when reading/interpreti ng unformatted reports. Name: ? PASCUAL BOYER ? Accession #: ? [id number] : ? 1980 (Age: 27) ??F ?Collect Date: ? 05/16/2007 Location: ? [facility] ? Receive Date: ? 05/19/2007 Provider: ?JOSE VALLES MD Copy to: ? Specimen/Source: ?ThinPrep Pap Test, Cervix/Endocervix, processed on [employer] ThinPrep Imaging System, with manual evaluation Last Menstrual Period: ? 03/15/07 Menstrual/Pregnanc y Status: ? Other: ? HPVA - HPV testing requested if ASC-US on the current ThinPrep Pap test. ? SPECIMEN ADEQUACY ? Satisfactory for Evaluation - transformation zone component present GENERAL CATEGORIZATION ? Epithelial Cell Abnormality INTERPRETATION ? Squamous Cell Abnormality - Low grade squamous intraepithelial lesion (LSIL). EDUCATIONAL NOTES/RECOMMENDATI ONS ? [facility] recommends following the 2001 Consensus Guidelines for the Management of Women with Cervical Cytological Abnormalities (LA,2002;287:212 0-9). Management algorithms have been distributed by [facility] and are available online at www.ASCCP.org. ? Document reviewed and electronically signed by: ? DAMIEN MAHONEY MD ? Report Date: ??05/26/2007 11:00 End of Report [facility] 05/16/2007 05/19/2007 us Jose Valles MD PATHOLOGY ORDERABLES Final Resul t [facility] [address] [place] [address] documented in this encounter Visit Diagnoses Not on filedocumented in this encounter
--- OUTSIDE RECORDS SUMMARY | 2024-09-14 17:32 | XMS_ITS | Encounter Summary ---
Author Organization [facility] Address [address] [place] [address] Care Team Providers Care Ampoule Filler And Sealer Name Role Phone Unavailable Primary Care Provider Unavailabl e Encounter Details Date Type Department Care Team (Late st Contact Info) Description 11/04/2002 Results Only [facility] conversion [address] [place] [address] Neftaly Stevenson, CUSTOMS INSPECTOR [address] [place], [place] [phone] Social History Tobacco Use Types Packs/Day Years [...] Priority Date/Time Associated Diagnosis Comments CYTOPATHOLOGY Routine 11/04/2002 0:00 EST documented in this encounter Results * CYTOPATHOLOGY (11/04/2002 0:00 EST) Pathology Report: CYTOPATHOLOGY REPORT Reports generated via electronic interface contain original data; however they are lacking the format of the original report. Caution should be taken when reading/interpreti ng unformatted reports. Name: ? PASCUAL BOYER ? Accession #: ? [id number] : ? 1980 (Age: 22) ??F ?Collect Date: ? 11/04/2002 Location: ? [facility] ? Receive Date: ? 11/06/2002 Provider: ?NEFTALY STEVENSON ANP Copy to: ? Specimen/Source: ?ThinPrep Pap Test, Endocervix Last Menstrual Period: ? 10/06/02 Other: ? HPVA - HPV testing requested if ASC-US on the current ThinPrep Pap test. ? SPECIMEN ADEQUACY ? Satisfactory for Evaluation - transformation zone component present GENERAL CATEGORIZATION ? Negative for Intraepithelial Lesion or Malignancy INTERPRETATION ? Fungal organisms present morphologically consistent with Julia species. ? Document reviewed and electronically signed by: ? RUTHANN Thomas(ASCP) ? Report Date: ??11/10/2002 11:43 End of Report [facility] 11/04/2002 11/06/2002 Neftaly Stevenson CUSTOMS INSPECTOR PATHOLOGY ORDERABLES Fin al Result Performing Organization Address City/State/[facility] Co de Phone Number [facility] [address] [place] [address] documented in this encounter Visit Diagnoses Not on filedocumented in this encounter
--- OUTSIDE RECORDS SUMMARY | 2024-09-14 17:32 | XMS_ITS | Encounter Summary ---
Author Organization [facility] Address [address] [place] [address] Care Team Providers Care Area Director Of Home Health Sales Name Role Phone Ruiz, Yolanda VÁSQUEZ Primary Care Provider [phone] Encounter Details Date Type Department Care Team (Late st Contact Info) Description 03/27/2017 Results Only [facility] [phone] Norma Sanders MD [facility] [place], [place] [phone] Social History Tobacco Use Types Packs/Day Years [...] Date/Time Associated Diagnosis Comments SURGICAL PATHOLOGY Routine 03/27/2017 21 :22 EDT documented in this encounter Results * SURGICAL PATHOLOGY (03/27/2017 21:22 EDT) Pathology Report: SURGICAL PATHOLOGY REPORT Reports generated via electronic interface contain original data; however they are lacking the format of the original report. Caution should be taken when reading/interpret ing unformatted reports. Name: ? PASCUAL PITTS ? Accession #: ? [id number] ? : ? 1980 (Age: 36) ??F ? Collect Date: ? 03/27/2017 ? Location: ? [facility] ? Receive Date: ? 03/27/2017 ? Provider: NORMA SANDERS MD Copy to: SANJEEV HOPPER COLLECTIONS CURATOR ? Final Pathologic Diagnosis: A. FALLOPIAN TUBE, LEFT, SALPINGECTOMY: - Unremarkable fallopian tube. B. FALLOPIAN TUBE, RIGHT, SALPINGECTOMY: - Unremarkable fallopian tube. Document reviewed and electronically signed by: SEYMOUR MONSON MD Report ??Date: 03/29/2017 13:23 By the signature above, the attending physician certifies that he/she has personally conducted a gross and/or microscopic examination of the described specimens and rendered or confirmed the above diagnosis. Specimen(s) Received: A. ??Fallopian tube, left B. ??Fallopian tube, right Clinical History: Desired sterilization; bilateral salpingectomy Gross Description: A. ?Received in formalin labelled with proper patient identification (initials H, J) and L fallopian tube is a tubular structure (4.4 cm in length and 0.4 cm in diameter). ??The serosal surface is smooth and elder-edwards. Sectioning reveals a central pinpoint lumen. Three exhibit display representative cross sections and the bisected fimbria are submitted as A1 and A2. B. ?Received in formalin labelled with proper patient identification (initials H, J) and R fallopian tube is a tubular structure (5.0 cm in length and 0.4 cm in diameter). ??The serosal surface is smooth and pink-edwards. Sectioning reveals a central pinpoint lumen. Three exhibit display representative cross sections and the bisected fimbria are submitted as B1 and B2. CAL Swift (ASCP) 03/28/2017 9:39 AM End of Report [facility] 03/27/2017 21:2 2 EDT 03/27/2017 21:22 EDT us Norma Sanders MD PATHOLOGY ORDERABLES Final Res ult [facility] [address] [place] [address] documented in this encounter Visit Diagnoses Not on filedocumented in this encounter Care Teams Area Director Of Home Health Sales Relationship Specialty Start Date End Date Yolanda Ruiz NP [address] [place] [address] [phone] PCP - General 11/06/10 08/18/22 documented as of this encounter
--- OUTSIDE RECORDS SUMMARY | 2024-09-14 17:32 | XMS_ITS | Encounter Summary ---
Author Organization [facility] Address [address] [place] [address] Care Team Providers Care Geophysics Teacher Name Role Phone Unavailable Primary Care Provider Unavailabl e Encounter Details Date Type Department Care Team (Late st Contact Info) Description 01/26/2008 Results Only [facility] [address] [place] [address] Jose Valles MD [address] [place] [address] [address] [place] [address] Social History Tobacco Use Types [...] Priority Date/Time Associated Diagnosis Comments CYTOPATHOLOGY Routine 01/26/2008 0:00 EDT documented in this encounter Results * CYTOPATHOLOGY (01/26/2008 0:00 EDT) Pathology Report: CYTOPATHOLOGY REPORT Reports generated via electronic interface contain original data; however they are lacking the format of the original report. Caution should be taken when reading/interpreti ng unformatted reports. Name: ? PASCUAL BOYER ? Accession #: ? [id number] : ? 1980 (Age: 27) ??F ?Collect Date: ? 01/26/2008 Location: ? [facility] ? Receive Date: ? 01/28/2008 Provider: ?JOSE VALLES MD Copy to: ? Specimen/Source: ?ThinPrep Pap Test, Cervix/Endocervix, processed on [employer] ThinPrep Imaging System, with manual evaluation Last Menstrual Period: ? none since delivery Menstrual/Pregnanc y Status: ? Post Previous Gynecologic Pathology: ? LSIL: 04/25 ASC-US: 06/25 Other: ? HPVA - HPV testing requested if ASC-US on the current ThinPrep Pap test. ? SPECIMEN ADEQUACY ? Satisfactory for Evaluation - transformation zone component present GENERAL CATEGORIZATION ? Negative for Intraepithelial Lesion or Malignancy ? Document reviewed and electronically signed by: ? Mayuri Naqvi, SCT(ASCP) ? Report Date: ??01/29/2008 11:48 End of Report [facility] 01/26/2008 01/28/2008 us Jose Valles MD PATHOLOGY ORDERABLES Final Resul t [facility] [address] [place] [address] documented in this encounter Visit Diagnoses Not on filedocumented in this encounter
--- OUTSIDE RECORDS SUMMARY | 2024-09-14 17:32 | XMS_ITS | Clinical Summary ---
Author Organization [facility] Address [address] [place] [address] Care Team Providers Care Electrical Sign Wirer Name Role Phone Unavailable Primary Care Provider [...] Orientation Not on file Plan of Treatment Health Maintenance Due Date Last Done Comments Hepatitis B Vaccine (1 of 3 - 19+ 3-dose series) 05/13 COVID-19 Vaccine ( season) 2024 Hepatitis C Screen Completed 06/08/2021 Procedures Procedure Name Priority Date/Time Associated Diagnosis Comments HEPATITIS C AB W REFLEX TO HCV RNA BY PCR Routine 06/08/2021 11:30 EDT from Last 3 Months or Most Recently Relevant to Health Maintenance Results * HEPATITIS C AB W REFLEX TO HCV RNA BY PCR (06/08/2021 11:30 EDT) Hep C Antibody Negative Negative 06/12/2021 11:58 EDT [facility] Blood VENOUS BLOOD / Unknown 06/08/2021 11:30 EDT 06/09/2021 15:49 EDT us Provider Outr Resulting Lab CHEMISTRY & BLOOD GA S ORDERABLES Final Result [facility] [address] [place] [address] from Last 3 Months or Most Recently Relevant to Health Maintenance Insurance MEDICAID [place]
--- OUTSIDE RECORDS SUMMARY | 2024-09-14 17:32 | XMS_ITS | Encounter Summary ---
Author Organization [facility] [place] [address] [place] [address] Care Team Providers Care Health And Wellness Instructor Name Role Phone Santa Rome MD Primary Care Provider [phone] Encounter Details Date Type Department Care Team (Latest Contact Info) Description 06/16/2024 Travel Social History Tobacco Use Types Packs/Day [...] on filedocumented in this encounter Care Teams Health And Wellness Instructor Relationship Specialty Start Date End Date Santa Rome MD [address] [place] [address] PCP - General Family Medicine 06/17/21 documented as of this encounter
--- OUTSIDE RECORDS SUMMARY | 2024-09-14 17:32 | XMS_ITS | Encounter Summary ---
[place] [address] Care Team Providers Care Hog Worker Name Role Phone Santa Rome MD Primary Care Provider [phone] Encounter Details Date Type Department Care Team (Late st Contact Info) Description 07/27/2024 Telephone [place] [phone] Vanesa Zamudio Social History Tobacco Use Types Packs/Day Years [...] on file documented as of this encounter Miscellaneous Notes * Telephone Encounter - Vanesa Zamudio - 07/27/2024 8:59 AM EST Per RM - Pt needs CT scan and telemedicine follow up after CT to discuss. Follow up visit should bewithin [address] scan. Called to schedule. LVM documented in this encounter Plan of Treatment Not on file documented as of this encounter Visit Diagnoses Not on filedocumented in this encounter Care Teams Hog Worker Relationship Specialty Start Date End Date Santa Rome MD [facility] COREY ESCOBAR [facility] [address] [place] [address] PCP - General Family Medicine 06/17/21 documented as of this encounter
--- OUTSIDE RECORDS SUMMARY | 2024-09-14 17:32 | XMS_ITS | Encounter Summary ---
Author Organization [facility] Address [address] [place] [address] Care Team Providers Care Occupational Health Nurse Supervisor Name Role Phone Unavailable Primary Care Provider Unavailabl e Encounter Details Date Type Department Care Team (Late st Contact Info) Description 11/02/2010 Results Only [facility] [phone] Gino Webb MD [address] [place] [address] Social History Tobacco Use Types Packs/Day Years [...] Date/Time Associated Diagnosis Comments SURGICAL PATHOLOGY Routine 11/02/2010 0:00 EDT documented in this encounter Results * SURGICAL PATHOLOGY (11/02/2010 0:00 EDT) Pathology Report: SURGICAL PATHOLOGY REPORT ? Reports generated via electronic interface contain original data; ? however they are lacking the format of the original report. ? Caution should be taken when reading/interpreting unformatted reports. ? Name: ? MERLIN, PASCUAL L ? Accession #: ? [id number] ? : ? 1980 (Age: 30) ??F ? Collect Date: ? 11/02/2010 ? Location: ? [facility] ? Receive Date: ? 11/02/2010 ? Provider: GINO S GERALD MD ? Copy to: RYLIE VALENCIA [employer] ? Final Pathologic Diagnosis: ? Products of conception, evacuation: ? - Fragments of decidualized endometrium, immature chorionic villi with ? hydropic changes, consistent with products of conception. See comment. ? Comment: ? Rn Traveling sections were reviewed in the intradepartmental consultation conference. ? Document reviewed and electronically signed by: ? BRIDGER B AMBAYE MD ? Report ??Date: 11/07/2010 15:03 ? By the signature above, the attending physician certifies that he/she has ? personally conducted a gross and/or microscopic examination of the described ? specimens and rendered or confirmed the above diagnosis. ? Specimen(s) Received: ? Products of conception ? Clinical History: ? 7 wks gestation with a blighted ovum ? Gross Description: ? Received in formalin labelled Pascual Kc and products of conception is a 5.0 x 4.0 x 2.0 cm aggregate of elder-red tissue fragments admixed with ? red-brown blood clot. ??Chorionic villi and gestational sac are identified; ? however, no parts are present. ??Rn Traveling sections are submitted as ?? (A1) through (A3). ??(Ousmane Lee)/jessica ? End of Report ? [facility] 11/02/2010 11/02/2010 18: 29 EDT us Gino Webb MD PATHOLOGY ORDERABLES Final Resu lt [facility] [address] [place] [address] documented in this encounter Visit Diagnoses Not on filedocumented in this encounter
--- OUTSIDE RECORDS SUMMARY | 2024-09-14 17:32 | XMS_ITS | Encounter Summary ---
Author Organization [facility] Address [address] [place] [address] Care Team Providers Care Computer Engineering Technician Name Role Phone Yolanda Ruiz NP Primary Care Provider [phone] Encounter Details Date Type Department Care Team (Late st Contact Info) Description 06/09/2021 Lab Requisition [facility] Pathology & Laboratory Medicine - [address] [phone] Outr Resulting Lab, Provider Social History Tobacco [...] Procedure Name Priority Date/Time Associated Diagnosis Comments HIV 1/2 ANTIGEN AND ANTIBODY, 4TH GENERATION Routine 06/08/2021 11:30 EDT documented in this encounter Results * HIV 1/2 ANTIGEN AND ANTIBODY, 4TH GENERATION (06/08/2021 11:30 EDT) HIV 1 and 2 Antibody/p24 Antigen, 4th Generation Negative Negative 06/10/2021 9:29 EDT [facility] Comment: If acute HIV-1 infection is suspected in a high risk ??patient, submit plasma specimen for HIV-1 RNA quantitation test. Fourth Generation assay performed on the Siemens Taxizuaur. Blood VENOUS BLOOD / Unknown 06/08/2021 11:30 EDT 06/09/2021 15:49 EDT us Provider Outr Resulting Lab IMMUNOLOGY AND SEROL OGY ORDERABLES Final Result [facility] [address] [place] [address] documented in this encounter Visit Diagnoses Not on filedocumented in this encounter Care Teams Computer Engineering Technician Relationship Specialty Start Date End Date Yolanda Ruiz NP [address] [place] [address] [phone] PCP - General 11/06/10 08/18/22 documented as of this encounter
--- OUTSIDE RECORDS SUMMARY | 2024-09-14 17:32 | XMS_ITS | Encounter Summary ---
Author Organization [facility] [place] [address] [place] [address] Care Team Providers Care Youth Corrections Officer Name Role Phone Santa Rome MD Primary Care Provider [phone] Encounter Details Date Type Department Care Team (Latest Contact Info) Description 06/11/2024 Travel Social History Tobacco Use Types Packs/Day [...] on filedocumented in this encounter Care Teams Youth Corrections Officer Relationship Specialty Start Date End Date Santa Rome MD [address] [place] [address] PCP - General Family Medicine 06/17/21 documented as of this encounter
--- OUTSIDE RECORDS SUMMARY | 2024-09-14 17:32 | XMS_ITS | Encounter Summary ---
Author Organization [facility] [place] [address] [place] [address] Care Team Providers Care Mixer Blender Name Role Phone Santa Rome MD Primary Care Provider [phone] Encounter Details Date Type Department Care Team (Latest Contact Info) Description 03/05/2023 Travel Social History Tobacco Use Types Packs/Day [...] on filedocumented in this encounter Care Teams Mixer Blender Relationship Specialty Start Date End Date Santa Rome MD [address] [place] [address] PCP - General Family Medicine 06/17/21 documented as of this encounter
--- OUTSIDE RECORDS SUMMARY | 2024-09-14 17:32 | XMS_ITS | Encounter Summary ---
Author Organization [facility] Address [address] [place] [address] Care Team Providers Care V Belt Mold Assembler And Curer Name Role Phone ValenciaRylie NP Primary Care Provider [phone] Encounter Details Date Type Department Care Team (Late st Contact Info) Description 10/15/2013 Results Only [facility] [phone] Gino Webb MD [address] [place] [address] Social History Tobacco Use Types Packs/Day Years [...] Diagnosis Comments PAP TEST- RESULT ONLY Routine 10/15/2013 0:00 EST documented in this encounter Results * PAP TEST- RESULT ONLY (10/15/2013 0:00 EST) Pathology Report: CYTOPATHOLOGY REPORT Reports generated via electronic interface contain original data; however they are lacking the format of the original report. Caution should be taken when reading/interpreti ng unformatted reports. Name: ? PASCUAL PITTS ? Accession #: ? [id number] ? : ? 1980 (Age: 33) ??F ?Collect Date: ? 10/15/2013 ? Location: ? [facility] ? Receive Date: ? 10/16/2013 ? Provider: GINO WEBB MD Copy to: RYLIE VALENCIA SENIOR OFFICE SUPPORT ASSISTANT SOSA ? Final Report SPECIMEN ADEQUACY ? Satisfactory for Evaluation - transformation zone component present GENERAL CATEGORIZATION ? Negative for Intraepithelial Lesion or Malignancy ?? Other: Additional clinical information: 12/2010 neg/neg Specimen/Source: ??Pap Test, Cervix/Endocervix, ThinPrep Imaging System with manual evaluation Document reviewed and electronically signed by: ? Judy Enriquez, CT(ASCP) ? Report ??Date: 10/26/2013 09:52 HPV with Pap Test ? Date Ordered: ? 10/26/2013 ? Status: ?? Signed Out ?Date Complete: ? 10/28/2013 ? By: ??System Interface ? Date Reported: ? 10/28/2013 ? Interpretation RESULT: Negative for HPV. No E6 or E7 mRNA is detected from HPV types 16,18,31,33,35, 39,45,51,52,56,58, 59,66, and 68 by breakfast cook mediated amplification. Comments Document reviewed and electronically signed by: ? System Interface ? Report date: 10/28/2013 By the signature above, the attending physician certifies that he/she has personally conducted a gross and/or microscopic examination of the described specimens and rendered or confirmed the above diagnosis. End of Report [facility] 10/15/2013 10/16/2013 us Gino Webb MD PATHOLOGY ORDERABLES Final Resu lt [facility] [address] [place] [address] documented in this encounter Visit Diagnoses Not on filedocumented in this encounter Care Teams V Belt Mold Assembler And Curer Relationship Specialty Start Date End Date Rylie Valencia NP [address] [place] [phone] PCP - General 11/06/10 08/18/22 documented as of this encounter
--- OUTSIDE RECORDS SUMMARY | 2024-09-14 17:32 | XMS_ITS | Encounter Summary ---
Author Organization [facility] Address [address] [place] [address] Care Team Providers Care Metal Cutter Name Role Phone Yolanda Ruiz NP Primary Care Provider Encounter Details Date Type Department Care Team (Late st Contact Info) Description 06/09/2021 Lab Requisition [facility] Pathology & Laboratory Medicine - [address] [phone] Outr Resulting Lab, Provider Social History Tobacco [...] RNA BY PCR Routine 06/08/2021 11:30 EDT LH Routine 06/08/2021 11:30 EDT [facility] Routine 06/08/2021 11:30 EDT documented in this encounter Results * LH (06/08/2021 11:30 EDT) Luteinizing Hormone 5.6 See Note mIU/mL 06/09/2021 17:15 EDT [facility] Comment: NOTE: Female Reference Ranges: Pre-Pubertal: ?<6.0 mIU/mL Menstruating: Follicular Phase(-12 to -4 days: ??1.9 - 12.5 mIU/mL Midcycle(-3 to +2 days): ?8.7 - 76.3 mIU/mL Luteal Phase(+4 to +12 days): ? 0.5 - 16.9 mIU/mL Post Menopausal: 15.9 - 54.0 mIU/mL Blood VENOUS BLOOD / Unknown 06/08/2021 11:30 EDT 06/09/2021 15:49 EDT us Provider Outr Resulting Lab CHEMISTRY & BLOOD GA S ORDERABLES Final Result [facility] [address] [place] [address] * FSH (06/08/2021 11:30 EDT) FSH 5.5 See Note mIU/mL 06/09/2021 17:16 EDT [facility] Blood VENOUS BLOOD / Unknown 06/08/2021 11:30 EDT 06/09/2021 15:49 EDT Narrative [facility] - 06/09/2021 17:16 EDT NOTE: Female FSH Reference Ranges (>= 13 Menstruating): PHYSIOLOGICAL STATUS ? REFERENCE RANGE ? Follicular (-12 to -4 days): ?? 2.5 - 10.2 mIU/mL Midcycle (-3 to +2 days): ?3.4 - 33.4 mIU/mL Luteal (+4 to +12 days): ? 1.5 - 9.1 mIU/mL Postmenopausal: ?23.0 - 116.3 mIU/mL Reference Ranges for female patients <13 years old have not been established. us Provider Outr Resulting Lab CHEMISTRY & BLOOD GA S ORDERABLES Final Result Performing Organization Address [facility] Co de Phone Number [facility] [address] [place] [address] * HEPATITIS C AB W REFLEX TO HCV RNA BY PCR (06/08/2021 11:30 EDT) Hep C Antibody Negative Negative 06/12/2021 11:58 EDT [facility] Blood VENOUS BLOOD / Unknown 06/08/2021 11:30 EDT 06/09/2021 15:49 EDT us Provider Outr Resulting Lab CHEMISTRY & BLOOD GA S ORDERABLES Final Result Performing Organization Address [facility] de Phone Number [facility] [address] [place] [address] documented in this encounter Visit Diagnoses Not on filedocumented in this encounter Care Teams Metal Cutter Relationship Specialty Start Date End Date Yolanda Ruiz NP [address] [place] [phone] PCP - General 11/06/10 08/18/22 documented as of this encounter
--- OUTSIDE RECORDS SUMMARY | 2024-09-14 17:32 | XMS_ITS | Encounter Summary ---
Author Organization [facility] Address [address] [place] [address] Care Team Providers Care Bus Mechanic Name Role Phone Unavailable Primary Care Provider Unavailabl e Encounter Details Date Type Department Care Team (Late st Contact Info) Description 05/03/2005 Results Only [facility] [place] [facility] [address] [place] [address] Neftaly Stevenson, LOFT WORKER APPRENTICE [address] [place], [place] [phone] Social History Tobacco Use Types Packs/Day Years [...] Priority Date/Time Associated Diagnosis Comments CYTOPATHOLOGY Routine 05/03/2005 0:00 EDT documented in this encounter Results * CYTOPATHOLOGY (05/03/2005 0:00 EDT) Pathology Report: CYTOPATHOLOGY REPORT Reports generated via electronic interface contain original data; however they are lacking the format of the original report. Caution should be taken when reading/interpreti ng unformatted reports. Name: ? PASCUAL BOYER ? Accession #: ? [id number] : ? 1980 (Age: 24) ??F ?Collect Date: ? 05/03/2005 Location: ? [facility] ? Receive Date: ? 05/07/2005 Provider: ?NEFTALY STEVENSON ANP Copy to: ? Specimen/Source: ?ThinPrep Pap Test, Endocervix, processed on [employer] ThinPrep Imaging System, with manual evaluation Last Menstrual Period: ? Other: ? HPVA - HPV testing requested if ASC-US on the current ThinPrep Pap test. ? SPECIMEN ADEQUACY ? Satisfactory for Evaluation - transformation zone component present GENERAL CATEGORIZATION ? Negative for Intraepithelial Lesion or Malignancy ? Document reviewed and electronically signed by: ? RUTHANN Webster(ASCP) ? Report Date: ??05/14/2005 12:51 End of Report [facility] 05/03/2005 05/07/2005 us Neftaly Stevenson LOFT WORKER APPRENTICE PATHOLOGY ORDERABLES Fin al Result [facility] [address] [place] [address] documented in this encounter Visit Diagnoses Not on filedocumented in this encounter
--- OUTSIDE RECORDS SUMMARY | 2024-09-14 17:32 | XMS_ITS | Encounter Summary ---
[place] [address] Care Team Providers Care Casino Cashier Manager Name Role Phone Santa Rome MD Primary Care Provider [phone] Encounter Details Date Type Department Care Team (Late st Contact Info) Description 12/11/2022 Telephone [place] [phone] Colleen Pollard Social History Tobacco Use Types Packs/Day Years [...] encounter Miscellaneous Notes * Telephone Encounter - Colleen Pollard - 12/11/2022 8:27 AM EDT Called patient at [phone] calling regarding appointments scheduled for 12/20/[address] Dr. Freed is going to be in the OR this day so we do need to reschedule. We have 2 options for reschedule: 1 - we can leave hearing test as scheduled for 12/20 and rescheduled your appointment with Dr. Freedfor another day, this would mean 2 trips for you. 2 - we can reschedule both appointments for the same day - we are booking out til mid summer at this time to coordinate both appointments. Left generic voicemail for callback Sent [facility] message also Canceled psychiatric np w/ Dr. Freed til we hear back how patient would like to reschedule. documented in this encounter Plan of Treatment Not on file documented as of this encounter Visit Diagnoses Not on filedocumented in this encounter Care Teams Casino Cashier Manager Relationship Specialty Start Date End Date Santa Rome MD [address] [place] [address] PCP - General Family Medicine 06/17/21 documented as of this encounter
--- OUTSIDE RECORDS SUMMARY | 2024-09-14 17:32 | XMS_ITS | Encounter Summary ---
[place] [address] Care Team Providers Care Automotive Accessory Installer Name Role Phone Santa Rome MD Primary Care Provider [phone] Encounter Details Date Type Department Care Team (Late st Contact Info) Description 04/15/2024 Telephone [place] [phone] Vanesa Zamudio Social History Tobacco Use Types [...] on filedocumented in this encounter Care Teams Automotive Accessory Installer Relationship Specialty Start Date End Date Santa Rome MD [address] [place] [address] PCP - General Family Medicine 06/17/21 documented as of this encounter
--- OUTSIDE RECORDS SUMMARY | 2024-09-14 17:32 | XMS_ITS | Encounter Summary ---
Author Organization [facility] Address [facility] Jose De Jesus [place] [place] [address] Care Team Providers Care School Operations Manager Name Role Phone Santa Rome MD Primary Care Provider [phone] Reason for Referral * Consultation (Routine) - Closed Specialty Diagnoses / Procedures Referred By Contkit t Referred To Contact Otolaryngology Diagnoses Other recurrent acute nonsuppurative otitis media, unspecified laterality Chronic allergic rhinitis Santa Rome MD [address] [place] [address] Alexis Freed MD [facility] [place] [address] Referral ID Status Reason Start Date Expiration Date V isits Requested Visits Authorized [id number] Closed Consult, Test & Treat PCP Updated and/or Approved 07/19/2022 07/19/2023 1 1 Encounter Details Date Type Department Care Team (Latest Contact Info) Description 07/19/2022 Transcribe Orders eDH Incoming Referrals [phone] Santa Rome MD [address] [place] [address] Other recurrent acute nonsuppurative otitis media, unspecified laterality; Chronic allergic rhinitis Social History Tobacco Use Types Packs/Day Years [...] Associated Diagnoses Orde r Schedule Referral to ENT Outpatient Referral Routine Other recurrent acute nonsuppurative otitis media, unspecified laterality Chronic allergic rhinitis Ordered: 07/19/2022 documented as of this encounter Visit Diagnoses Diagnosis Other recurrent acute nonsuppurative otitis media, unspecified laterality Chronic allergic rhinitis Allergic rhinitis, cause unspecified documented in this encounter Care Teams School Operations Manager Relationship Specialty Start Date End Date Santa Rome MD [facility] [address] [place] [address] PCP - General Family Medicine 06/17/21 documented as of this encounter
--- OUTSIDE RECORDS SUMMARY | 2024-09-14 17:32 | XMS_ITS | Encounter Summary ---
Author Organization [facility] Address [facility] Jose De Jesus [facility] [place] [address] Care Team Providers Care Tension Worker Name Role Phone Santa Rome MD Primary Care Provider [phone] Reason for Visit * Reason Comments Other She has had trouble with ear infections mostly in her left ear. The left ear feels full right now. Her dr said that the tubes definitely need to be checked. * Consultation (Routine) - Closed Specialty Diagnoses / Procedures Referred By Richard cueva Referred To Contact Otolaryngology Diagnoses Other recurrent acute nonsuppurative otitis media, unspecified laterality Chronic allergic rhinitis Santa Rome MD [address] [place] [address] [facility] [address] [place] [address] Alexis Freed MD [facility] [place] [address] Referral ID Status Reason Start Date Expiration Date V isits Requested Visits Authorized [id number] Closed Consult, Test & Treat PCP Updated and/or Approved 07/19/2022 07/19/2023 1 1 Encounter Details Date Type Department Care Team (Late st Contact Info) Description 03/05/2023 3:00 PM EDT Office [place] [id number] Alexis Freed MD [facility] [place] [address] Otorrhea of left ear Social History Tobacco Use Types Packs/Day Years [...] - Inhaled Oxygen Concentration - - Weight 72.1 kg (159 lb) 03/05/2023 2:55 PM EDT Height 152.4 cm (5') 03/05/2023 2:55 PM EDT Body Mass Index 31.05 03/05/2023 2:55 PM EDT documented in this encounter Progress Notes * Nubia Rivero PA - 03/05/2023 3:00 PM EDT [facility] Otolaryngology - Head and Neck Surgery Alexis Freed MD 03/05/23 2:27 PM [place], [place] [address] Office Patient Name: Joaquim Dunn Date of : 1980 PCP: Santa Rome MD Chief Complaint: Acute recurrent OM, allergic rhinitis History of Present Illness: Joaquim Dunn is a 42 y.o. year old female with a history of bilateral hearing loss with hearing amplification who was seen today at the request of Santa Rome in consultation for acute recurrent OM and allergic rhinitis. year history of the following: Decreased hearing loss L>R, worsening the last couple years. L aural fullness more than on the right, with intermittent pain. Denies tinnitus and vertigo. Chronic ETD, tries sniffing and Valsalva to clear ears, neither of them help much. Otalgia-L outer ear, Otorrhea-last March 2022 purulent. 1 week ago also draining, will start clear then get purulent. Will happen in both, twice per year. Ear infections- L ear feels full. Gets intermittent PND. Prior treatments include Augmentin and Ciprodex. Otologic surgical history: Tympanostomy tubes placed in 2018. Yes to regular qtip use. Family history of hearing loss, mother unilateral HL without hearing aid. Hearing aid use-Jul 2019, bilateral, followed by [facility]. No acoustic trauma, barotrauma, or head injury. Excessively loud sound exposure history, loud music in the car. No ototoxic drug exposures. No history of Lyme disease. Radiology images personally reviewed: None Relevant Labs reviewed: None Audiogram: 03/05/23. Past Medical and Surgical History Patient Active Problem List Diagnosis Code Rhinitis, nonallergic, chronic J31.0 Mild intermittent asthma, uncomplicated J45.20 Gastroesophageal reflux disease K21.9 Elevated blood pressure reading R03.0 Cigarette nicotine dependence with nicotine-induced disorder F17.219 Current Outpatient Medications on File Prior to Visit Medication Sig Dispense Refill oxyCODONE (ROXICODONE) 5 mg Tablet Take 1 tablet by mouth every 4 hours as needed for Pain. Taper this medication down in the upcoming days. Do not take if not needed. 10 tablet 0 mupirocin (BACTROBAN) 2 % Ointment 0.5 g by Nasal route 2 times daily. Follow discharge instructions. 10 g 3 dicyclomine (BENTYL) 10 mg Capsule Take 1 capsule by mouth 4 times daily as needed. 20 capsule 3 pantoprazole (PROTONIX) 40 mg Tablet, Delayed Release (E.C.) Take 1 tablet by mouth 2 times daily (before meals). 60 tablet 11 PARoxetine (PAXIL) 10 mg Tablet 20 mg. 0 acetaminophen (TYLENOL) 500 mg Tablet Take 500 mg by mouth every 6 hours as needed for Pain. Ciclesonide (OMNARIS) 50 mcg [place], Non-Aerosol 2 sprays each nostril once daily 12.5 g 3 albuterol 90 mcg/actuation HFA Aerosol Inhaler Inhale 2 puffs into the lungs every 4 hours as needed for Wheezing, Shortness of Breath or Cough. 1 Inhaler 1 buPROPion (WELLBUTRIN) 100 mg Tablet Take 100 mg by mouth 3 times daily. atorvastatin (LIPITOR) 40 mg Tablet Take 40 mg by mouth daily. oxybutynin (DITROPAN) 5 mg Tablet Take 5 mg by mouth 2 times daily. No current facility-administered medications on file prior to visit. Allergies: Patient has no known allergies. Surgical History: Past Surgical History: Procedure Laterality Date PRO CREATE EARDRUM OPENING, GEN ANESTH Bilateral 02/12/2019 MYRINGOTOMY, INSERTION OF TUBE (WRVU 2.01) performed by Alexis Freed MD at [facility] OSC PRO EXCISION TURBINATE, SUBMUCOUS Bilateral 07/03/2019 SMR INFERIOR TURBINATE, PARTIAL OR COMPLETE-DAVIN (WRVU 3.57) performed [facility] PRO MYRINGOPLASTY Bilateral 02/12/2019 MYRINGOPLASTY, SIMPLE (WRVU 6.03) performed by Alexis Freed MD at [facility] OSC PRO REPAIR OF NASAL SEPTUM Midline 07/03/2019 SEPTOPLASTY OR SMR, W/ OR W/O CARTILAGE SCORING, CONTOURING OR REPLACEMENT W/ GRAFT (WRVU 7.01) performed by Alexis Freed MD at [facility] MAIN OR PRO UNLISTED PROCEDURE NOSE Left 07/03/2019 NASAL VALVE SUSPENSION (WRVU 7.55) performed by Alexis Freed MD at [facility] MAIN OR Family and Social History Family History: Family History Problem Relation Age of Onset Allergic Rhinitis Maternal Aunt Asthma Maternal Aunt Social History: Lives in [place] [address] Social History Socioeconomic History Marital status: Spouse name: Not on file Number of children: Not on file Years of education: Not on file Highest education level: Not on file Occupational History Not on file Tobacco Use Smoking status: Every Day Packs/day: 0.25 Years: 20.00 Pack years: 5.00 Types: Cigarettes Smokeless tobacco: Never Tobacco comments: one pack a week Vaping Use Vaping Use: Never used Substance and Sexual Activity Alcohol use: Not Currently Drug use: Not on file Comment: She smokes pot daily Sexual activity: Not on file Other Topics Concern Not on file Social History Narrative Not on file Social Determinants of Health Financial Resource Strain: Not on file Food Insecurity: Not on file Transportation Needs: Not on file Physical Activity: Not on file Housing Stability: Not on file Physical Exam Temperature: Heart Rate: Blood Pressure: Respiratory Rate: SpO2: General: Age appropriate, healthy appearing, well-groomed, independently mobile. Communicates easily, speech clear, voice is strong. Awake, alert, and oriented to person, place and time. Affect appropriate. Head and Face: Head is normocephalic, atraumatic. Facial resting tone symmetric. Eyes: Conjugate gaze, ocular motility intact bilaterally Neurologic: Cranial Nerves II-XII grossly intact and symmetric. Ears: External ears without deformity. See documentation of otomicroscopy below. Hearing is grossly normal. Tuning fork midline with Air>Bone bilaterally. Nose: External nose is midline without deformity or lesion. Anterior rhinoscopy reveals a straight septum, healthy mucosa, turbinates normal in size. Oral: There are no visible or palpable buccal, gingival, lingual, or palatal lesions. The floor of mouth is soft and flat. Dentition is in good repair. Oropharynx: Symmetric without tonsillar pathology. Larynx: Strong voice and cough Pulmonary: Breathing comfortably. Symmetric chest expansion without use of accessory muscles or retraction. Procedures Binocular otomicroscopy was performed: Left side: Ear canal clear. Tympanic membrane intact with T tube in good placement. Edematous purulent fluid noted circumferentially around tube in middle ear. Fluid removed using gentle suction and culture swab obtained. Ciprodex gtts placed in clinic and dry cotton ball placed. Right side: Ear canal clear. Tympanic membrane intact and translucent with T tube in good placement. Cerumen removed from posterior drum, no retraction noted. ASSESSMENT & RECOMMENDATIONS Joaquim Dunn is a 42 y.o. female presenting with acute L otitis media with tympanostomy tube in place. Recommend use Ciprodex gtts for drainage episodes, may use this at home due to infectious process noted during clinic visit today. Additionally recommend 1 year follow up for monitoring of bilateral T-tubes. Thank you for the participation of care in this patient. Nubia Rivero PA-C Resident Otolaryngology - Head and Neck Surgery 07/18/23 2:27 PM * Alexis Freed MD - 03/05/2023 3:00 PM EDT Images from the original note were not included. [facility] Otolaryngology - Head and Neck Surgery Alexis Freed MD 03/05/23 3:01 PM [place], [place] [address] Office Patient Name: Joaquim Dunn Date of [...] valve collapse repaired with endonasal placement of ecommerce project manager graft Audiogram 03/05/23 Interval history: No follow up in about 4 years. Some more HL in the left ear since last visit. 2 episodes of drainage per year since last visit treated with augmentin. Drops were prescribed 1 week ago, and she hasn't started these yet. Started wearing hearing aids in 2019, and these are working well. Nose is doing OK. Occasionally gets a chunk of debris down the back of the throat. Omnaris helps. Pertinent Exam Findings: External nose deviates to the right in the lower 2/3. Anterior rhinoscopy shows leftward deviation of the nasal septum with some narrowing of the internal nasal valve despite prior ecommerce project manager graft placement. Both nasal passages are patent, mild crusting of the anterior nose. Well positioned and patent t-tubes. Pneumatized middle ear spaces. Exam from 2019 above. Today's exam is similar, but there is some mucoid drainage around the base ofthe tube, which I cultured and some dry discharge coating the posterior TM, which I cleaned off with suction. Impression and Plan: Left tubotympanic otorrhea. Rx. Ciprodex. May need to adjust treatment based on cultures if drainage does not respond to drops. F/U yearly or sooner for problems. Alexis Freed MD, [facility] Otolaryngology - Head and Neck Surgery 03/05/23 3:01 PM documented in this encounter Plan of Treatment Not on file documented as of this encounter Procedures Procedure Name Priority Date/Time Associated Diagnosis Comments ANAEROBIC CULTURE Routine 03/05/2023 3:4 0 PM EDT Otorrhea of left ear HC BODY FLUID CULTURE Routine 03/05/2023 3:40 PM EDT Otorrhea of left ear BODY FLUID CULTURE, AEROBIC Routine 03/05/2023 3:40 PM EDT Otorrhea of left ear documented in this encounter Results * Anaerobic Culture (03/05/2023 3:40 PM EDT) Anaerobic Culture No anaerobic organisms isolated [facility] Fluid 03/05/2023 3:40 PM EDT 03/05/2023 4:17 PM EDT Comment:L otic fluid. Narrative Resulting Agency Comment Spec In Lab Nubia [facility] - [facility] ORDERABLES [facility] [place] [address] * (ABNORMAL) Body Fluid Culture, Aerobic (03/05/2023 3:40 PM EDT) Body Fluid Culture Many Staphylococcus aureus two morphologies(A) [facility] Gram Stain Cytocentrifuge Gram Stain performed No Neutrophils seen. Many Gram Positive Cocci seen (A) [facility] Organism Staphylococcus aureus(A) [facility] Organism Staphylococcus aureus(A) [facility] Fluid 03/05/2023 3:40 PM EDT 03/05/2023 4:17 PM EDT Comment:L otic fluid. Narrative Resulting Agency Comment Spec In Lab Organism Antibiotic Method Susceptibility Staphylococcus aureus Clindamycin VITEK 2 METHOD Sensitive Staphylococcus aureus Erythromycin VITEK 2 METHOD Sensitive Staphylococcus aureus Gentamicin VITEK 2 METHOD Sensitive Comment:Gentamicin i s not appropriate for Amite-therapy. Staphylococcus aureus Oxacillin VITEK 2 METHOD Sensitive Comment: Oxacillin (methicillin) susceptibility is a surrogate for the oral and parenteral cephalosporins, beta-lactam combination agents (amoxicillin-clavulanate, ampicillin-sulbactam and piperacillin-tazobactam) and carbapenem agents. ??It is NOT a surrogate for penicillin, ampicillin or piperacillin susceptibility. Staphylococcus aureus Trimethoprim/Sulfa VITEK 2 METHO D Sensitive Staphylococcus aureus Tetracycline VITEK 2 METHOD Sensitive Staphylococcus aureus Vancomycin VITEK 2 METHOD Sensitive Staphylococcus aureus Clindamycin VITEK 2 METHOD Sensitive Staphylococcus aureus Erythromycin VITEK 2 METHOD Sensitive Staphylococcus aureus Gentamicin VITEK 2 METHOD Sensitive Comment:Gentamicin i s not appropriate for Amite-therapy. Staphylococcus aureus Oxacillin VITEK 2 METHOD Sensitive Comment: Oxacillin (methicillin) susceptibility is a surrogate for the oral and parenteral cephalosporins, beta-lactam combination agents (amoxicillin-clavulanate, ampicillin-sulbactam and piperacillin-tazobactam) and carbapenem agents. ??It is NOT a surrogate for penicillin, ampicillin or piperacillin susceptibility. Staphylococcus aureus Trimethoprim/Sulfa VITEK 2 METHO D Sensitive Staphylococcus aureus Tetracycline VITEK 2 METHOD Sensitive Staphylococcus aureus Vancomycin VITEK 2 METHOD Sensitive Nubia [facility] - [facility] ORDERABLES [facility] [place] [address] documented in this encounter Visit Diagnoses Diagnosis Otorrhea of left ear Otorrhea, unspecified documented in this encounter Care Teams Tension Worker Relationship Specialty Start Date End Date Santa Rome MD [address] [place] [address] PCP - General Family Medicine 06/17/21 documented as of this encounter
--- OUTSIDE RECORDS SUMMARY | 2024-09-14 17:32 | XMS_ITS | Encounter Summary ---
Author Organization [facility] Address [address] [place] [address] Care Team Providers Care Civil Project Engineer Name Role Phone RuizYolanda cevallos FAHAD Primary Care Provider [phone] Encounter Details Date Type Department Care Team (Late st Contact Info) Description 04/03/2019 Results Only [facility] [phone] Saran Reza, [address] [place] [address] Social History Tobacco Use Types Packs/Day Years [...] Diagnosis Comments PAP TEST- RESULT ONLY Routine 04/03/2019 0:00 EDT documented in this encounter Results * PAP TEST- RESULT ONLY (04/03/2019 0:00 EDT) Pathology Report: CYTOPATHOLOGY REPORT Reports generated via electronic interface contain original data; however they are lacking the format of the original report. Caution should be taken when reading/interpreti ng unformatted reports. Name: ? PASCUAL PITTS ? Accession #: ? [id number] ? : ? 1980 (Age: 38) ??F ?Collect Date: ? 04/03/2019 ? Location: ? [facility] ? Receive Date: ? 04/06/2019 ? Provider: SARAN CONKLIN DNP Copy to: ? Final Report SPECIMEN ADEQUACY ? Satisfactory for Evaluation - transformation zone component present GENERAL CATEGORIZATION ? Negative for Intraepithelial Lesion or Malignancy ?? Previous Gynecologic Pathology: ASC-US: 04/2016 Infection History: Neg for HPV: 04/2016 Other: Additional clinical information: Z00.00 Z12.4 Z11.51 Specimen/Source: ??Pap Test, Cervix, ThinPrep Imaging System with manual evaluation Document reviewed and electronically signed by: ? Matheus Yung, RUTHANN(ASCP) ? Report ??Date: 04/09/2019 10:51 HPV with Pap Test ? Date Ordered: ? 04/08/2019 ? Status: ?? Signed Out ?Date Complete: ? 04/10/2019 ? By: ??System Interface ? Date Reported: ? 04/10/2019 ? Interpretation RESULT: Negative for HPV. No E6 or E7 mRNA is detected from HPV types 16,18,31,33,35, 39,45,51,52,56,58, 59,66, and 68 by welding pantograph machine operator mediated amplification. Comments Document reviewed and electronically signed by: ? System Interface ? Report date: 04/10/2019 By the signature above, the attending physician certifies that he/she has personally conducted a gross and/or microscopic examination of the described specimens and rendered or confirmed the above diagnosis. End of Report [facility] 04/03/2019 04/06/2019 us Saran Conklin DNP PATHOLOGY ORDERABLES Pascale wilhelm Result [facility] [address] [place] [address] documented in this encounter Visit Diagnoses Not on filedocumented in this encounter Care Teams Civil Project Engineer Relationship Specialty Start Date End Date Yolanda Ruiz NP [address] [place] [phone] PCP - General 11/06/10 08/18/22 documented as of this encounter
--- OUTSIDE RECORDS SUMMARY | 2024-09-14 17:32 | XMS_ITS | Encounter Summary ---
Author Organization [facility] Address [address] [place] [address] Care Team Providers Care Traffic Superintendent Name Role Phone Unavailable Primary Care Provider Unavailabl e Encounter Details Date Type Department Care Team (Latest Contact Info) Description 06/19/2007 15:16 EDT Hospital Encounter [facility] [address] [place] [address] Jose Valles MD [address] [place] [address] [address] [place] [address] Discharge Disposition: Home or Self Care Social [...] Code Departure Means Destination Home or Self Care documented in this encounter Plan of Treatment Not on file documented as of this encounter Procedures Procedure Name Priority Date/Time Associated Diagnosis Comments CYTOPATHOLOGY Routine 02/07/2009 0:00 EDT CYTOPATHOLOGY Routine 07/26/2008 0:00 EST CHLAMYDIA/N. GONORRHOEAE AMPLIFIED RNA, URINE Routine 07/13/2008 14:30 EST documented in this encounter Results * CYTOPATHOLOGY (02/07/2009 0:00 EDT) Pathology Report: CYTOPATHOLOGY REPORT ? Reports generated via electronic interface contain original data; ? however they are lacking the format of the original report. ? Caution should be taken when reading/interpreti ng unformatted reports. ? Name: ? MERLIN, PASCUAL L ? Accession #: ? [id number] ? : ? 1980 (Age: 28) ??F ?Collect Date: ? 02/07/2009 ? Location: ? [facility] ? Receive Date: ? 02/09/2009 ? Provider: ?JOSE REDD MD ? Copy to: ? Specimen/Source: ?Pap Test, Cervix/Endocervix, ThinPrep Imaging System ? with manual evaluation ? Last Menstrual Period: ? 06/08/09 ? Hormonal/Contracep tive Status: ? Yes ? Previous Gynecologic Pathology: ? LSIL: 09/07 & 11/07 ? Treatment History: ? Colposcopy: 11/07 LGSIL ? Other: ? HPVA - HPV testing requested if ASC-US on the current ThinPrep Pap test. ? SPECIMEN ADEQUACY ? Satisfactory for Evaluation ? - transformation zone component present ? GENERAL CATEGORIZATION ? Negative for Intraepithelial Lesion or Malignancy ? Document reviewed and electronically signed by: ? Mayuri Naqvi, SCT(ASCP) ? Report Date: ??02/11/2009 15:03 ? End of Report ? [facility] 02/07/2009 02/09/2009 us Jose Valles MD PATHOLOGY ORDERABLES Final Resul t [facility] [address] [place] [address] * CYTOPATHOLOGY (07/26/2008 0:00 EST) Pathology Report: CYTOPATHOLOGY REPORT ? Reports generated via electronic interface contain original data; ? however they are lacking the format of the original report. ? Caution should be taken when reading/interpreti ng unformatted reports. ? Name: ? PASCUAL BOYER ? Accession #: ? [id number] ? : ? 1980 (Age: 28) ??F ?Collect Date: ? 07/26/2008 ? Location: ? [facility] ? Receive Date: ? 07/28/2008 ? Provider: ?PETER REDD MD ? Copy to: ? Specimen/Source: ?Pap Test, Cervix/Endocervix, ThinPrep Imaging System ? with manual evaluation ? Last Menstrual Period: ? 11/11/08 ? Hormonal/Contracep tive Status: ? Yes ? Previous Gynecologic Pathology: ? LSIL: 9/07, 11/07 ? Yes: Pap 6/08 WNL ? Treatment History: ? Colposcopy: 11/07 ? Other: ? HPVA - HPV testing requested if ASC-US on the current ThinPrep Pap test. ? SPECIMEN ADEQUACY ? Satisfactory for Evaluation ? - transformation zone component present ? GENERAL CATEGORIZATION ? Negative for Intraepithelial Lesion or Malignancy ? Document reviewed and electronically signed by: ? Sunil N. Enrique, [place](ASCP) ? Report Date: ??08/02/2008 11:35 ? End of Report ? [facility] 07/26/2008 07/28/2008 us Jose Valles MD PATHOLOGY ORDERABLES Final Resul t [facility] [address] [place] [address] * CHLAMYDIA/GC AMPLIFIED, URINE (07/13/2008 14:30 EST) Specimen Description Urine [facility] Result Ordered in error Credit Issued [facility] Result Ordered in error Credit Issued [facility] 07/13/2008 14:3 0 EST 07/13/2008 19:11 EST us Shahana Aranda MD MICROBIOLOGY - GENERAL ORDERAB LES Final Result [facility] [address] [place] [address] documented in this encounter Visit Diagnoses Not on filedocumented in this encounter
--- OUTSIDE RECORDS SUMMARY | 2024-09-14 17:32 | XMS_ITS | Encounter Summary ---
Author Organization [facility] Address [address] [place] [address] Care Team Providers Care Medical Doctor Md Name Role Phone Ruiz, Yolanda VÁSQUEZ Primary Care Provider [phone] Encounter Details Date Type Department Care Team (Late st Contact Info) Description 05/09/2016 Results Only [facility] [phone] Simona Hopper APRN [address] [place], [place] [id number] Social History Tobacco Use Types Packs/Day Years [...] Diagnosis Comments PAP TEST- RESULT ONLY Routine 05/09/2016 0:00 EDT documented in this encounter Results * PAP TEST- RESULT ONLY (05/09/2016 0:00 EDT) Pathology Report: CYTOPATHOLOGY REPORT Reports generated via electronic interface contain original data; however they are lacking the format of the original report. Caution should be taken when reading/interpret ing unformatted reports. Name: ? PASCUAL PITTS ? Accession #: ? [id number] ? : ? 1980 (Age: 35) ??F ?Collect Date: ? 05/09/2016 ? Location: ? [facility] ? Receive Date: ? 05/10/2016 ? Provider: SIMONA HOPPER RECLAMATION WORKER Copy to: ? Final Report SPECIMEN ADEQUACY ? Satisfactory for Evaluation - transformation zone component present GENERAL CATEGORIZATION ? Epithelial Cell Abnormality INTERPRETATION ? Squamous Cell Abnormality - Atypical squamous cells, undetermined significance (ASC-US). EDUCATIONAL NOTES/RECOMMENDAT IONS ? [facility] recommends following ASCCP's 2012 Updated Consensus Guidelines for the Management of Abnormal Cervical Cancer Screening Tests and Cancer Precursors (JLGTD, 2013; 17(5):S1-S27). ??Consensus guidelines are available online at www.asccp.org. Specimen/Source: ??Pap Test, Cervix/Endocervix , ThinPrep Imaging System with manual evaluation Document reviewed and electronically signed by: ? VIKAS VILLAR MD ? Report ??Date: 05/19/2016 10:43 HPV with Pap Test ? Date Ordered: ? 05/18/2016 ? Status: ?? Signed Out ?Date Complete: ? 05/22/2016 ? By: ??System Interface ? Date Reported: ? 05/22/2016 ? Interpretation RESULT: Negative for HPV. No E6 or E7 mRNA is detected from HPV types 16,18,31,33,35, 39,45,51,52,56,58 ,59,66, and 68 by furnace loader mediated amplification. Comments Document reviewed and electronically signed by: ? System Interface ? Report date: 05/22/2016 By the signature above, the attending physician certifies that he/she has personally conducted a gross and/or microscopic examination of the described specimens and rendered or confirmed the above diagnosis. End of Report [facility] 05/09/2016 05/10/2016 us Simona Hopper RECLAMATION WORKER PATHOLOGY ORDERABLES Final Re sult [facility] [address] [place] [address] documented in this encounter Visit Diagnoses Not on filedocumented in this encounter Care Teams Medical Doctor Md Relationship Specialty Start Date End Date Yolanda Ruiz NP [address] [place] [id number] PCP - General 11/06/10 08/18/22 documented as of this encounter
--- OUTSIDE RECORDS SUMMARY | 2024-09-14 17:32 | XMS_ITS | Encounter Summary ---
Author Organization [facility] [place] [address] Care Team Providers Care Equipment Service Lead Name Role Phone Santa Rome MD Primary Care Provider [phone] Encounter Details Date Type Department Care Team (Late st Contact Info) Description 07/19/2022 Transcribe Orders eD Incoming Referrals [phone] Santa Rome MD [address] [place] [address] Social History Tobacco Use Types [...] on filedocumented in this encounter Care Teams Equipment Service Lead Relationship Specialty Start Date End Date Santa Rome MD [address] [place], [place] [phone] PCP - General Family Medicine 06/17/21 documented as of this encounter
--- OUTSIDE RECORDS SUMMARY | 2024-09-14 17:33 | XMS_ITS | Encounter Summary ---
[place] [address] Care Team Providers Care Director Emergency Department Name Role Phone Simona Jack APRN Primary Care Provider Encounter Details Date Type Department Care Team (Late st Contact Info) Description 01/23/2019 [place] [phone] Kian Lara Social History Tobacco Use Types Packs/Day Years Used Date Smoking Tobacco: Every Day Cigarettes 1 20 Smokeless Tobacco: Never Comments:one pack a week Alcohol Use Standard Drinks/Week Comments Not Currently 0 (1 standard drink = 0.6 oz pur e alcohol) Sex and Gender Information Value Date Recorded Sex Assigned at Female 04/13/2024 11:52 PM EDT Gender Identity Female 04/13/2024 11:52 PM EDT Sexual Orientation Not on file documented as of this encounter Miscellaneous Notes * Telephone Encounter - Kian Lara - 01/23/2019 8:57 AM EDT Manav, Patient is scheduled to have surgery on 02/12/19 and the packet has been mailed to the verified address on file. Follow up appointment is as follows: Follow up: 1 month postop with AE Thank you!! documented in this encounter Plan of Treatment Not on file documented as of this encounter Visit Diagnoses Not on filedocumented in this encounter Care Teams Director Emergency Department Relationship Specialty Start Date End Date Simona Jack APRN PCP - General Family Medicine 08/25/18 03/18/19 documented as of this encounter
--- OUTSIDE RECORDS SUMMARY | 2024-09-14 17:33 | XMS_ITS | Encounter Summary ---
Author Organization [facility] Address [facility] [place] [address] Care Team Providers Care Deposit Refund Clerk Name Role Phone Katerin Jax Joseph DNP Primary Care Provider Reason for Visit * Reason Comments GI Problem * Consultation (Routine) - Closed Specialty Diagnoses / Procedures Referred By Contac t Referred To Contact Gastroenterology Diagnoses Gastroesophageal reflux disease, esophagitis presence not specified Motility - Patient with GERD symptoms on PPI. No relief with rantidine. Please evaluate and manage GERD. thanks. Caridad De Luna MD [facility] [address] [place] [address] Referral ID Status Reason Start Date Expiration Date V isits Requested Visits Authorized [id number] Closed Consult, Test & Treat 12/03/2018 12/03/2019 1 1 Encounter Details Date Type Department Care Team (Latest Contact Info) Description 03/31/2019 10:00 AM EDT Office [place] [phone] Antonia Walker PA Gastroesophageal reflux disease, esophagitis presence not specified; Chronic abdominal pain; Abdominal bloating; Nausea without vomiting Social History Tobacco Use Types Packs/Day Years [...] Sign Reading Time Taken Comments Blood Pressure 127/81 03/31/2019 9:54 AM EDT Pulse 82 03/31/2019 9:54 AM EDT Temperature - - Respiratory Rate - - Oxygen Saturation - - Inhaled Oxygen Concentration - - Weight 73.9 kg (163 lb) 03/31/2019 9:54 AM EDT Height 152.4 cm (5') 03/31/2019 9:54 AM EDT Body Mass Index 31.83 03/31/2019 9:54 AM EDT documented in this encounter Patient Instructions * Patient Instructions* Antonia Walker - 03/31/2019 10:00 AM EDT Thank you for coming in today. Here is a summary of what we discussed: 1. GERD lifestyle measures -- see handout 2. Take Protonix twice daily (AM and PM, 30-60 minutes before meals) for 8-10 weeks, then decrease to once daily. Monitor symptoms. 3. For abdominal cramps, gas, bloating - dietary changes to start with, for 2-4 weeks. See handouts. 4. Labs today 5. Follow up with GI motility provider documented in this encounter Progress Notes * Antonia Walker - 03/31/2019 10:00 AM EDT Gastroenterology & Hepatology New Patient Consultation Note PCP: Jax Conklin APRN Requesting Provider: Caridad De Luna ([facility]) Reason for consultation: Joaquim Dunn is a 38 y.o. female with medical history significant for rhinitis, mild intermittent asthma, hearing disorder, post nasal drip. I am seeing her as a new patient today in consult for question of GERD despite PPI. Subjective: HPI: She is here for heartburn. Is worse at night when she lies down. Has sour acidic reflux. Has not noticed any food triggers. Has been there for a few years but is now worse. She will have reflux and heartburn during the day, but its worse at night when she lies down. Sometimes can't sleep at night. - Initially tried omeprazole 20 mg daily, first thing in AM. Helped initially but symptoms were worsening. Switched to Protonix a year ago, currently taking 40 mg in AM 1 hr before first meal. Has not tried BID dosing. If she misses a dose of PPI, she will feel more symptoms. Tums chews PRN help temporarily, takes them like candy. - No dysphagia or odynophagia. - No chronic cough, voice changes. - Eats larger meal at end of day, eats right before bed. Does not elevate head of bed or use a wedge pillow. No dietary changes. - No prior EGD. Chronic abdominal pain, was diagnosed with IBS 20 years. Crampy pain on the sides. Does not relievewith bowel movement. Nausea daily. No vomiting. Has a lot of gas, bloating. - Tried compazine for nausea but stopped taking it when she ran out. Bowels: daily, several times a day. Solid formed stool. This is her normal. Has not had recent labs done. Has not been tested for Celiac disease. Diet review: did not review today B: L: D: Weight: stable Appetite: ok Exercise: on her feet all day at work Diagnostic studies: ROS: Constitutional: + fatigue, night sweats Denies unintended weight loss, fever Eyes: Denies red or painful eyes ENT: Denies dysphagia, odynophagia, hoarseness Resp: Denies cough, shortness of breath Cardio: Denies chest pain, palpitations : Denies dysuria, incontinence Integumentary: Denies new rashes, sores, lesions GI: see HPI Musculoskeletal: + left knee bursitis Neuro: + headaches ALL/IMMUNO: + seasonal allergies, asthma MEDICAL HISTORY: Patient Active Problem List Diagnosis Code ??? Rhinitis, nonallergic, chronic J31.0 ??? Mild intermittent asthma, uncomplicated J45.20 ??? Gastroesophageal reflux disease K21.9 ??? Elevated blood pressure reading R03.0 ??? Cigarette nicotine dependence with nicotine-induced disorder F17.219 CURRENT MEDICATIONS: ??? PARoxetine (PAXIL) 10 mg Tablet ??? acetaminophen (TYLENOL) 500 mg Tablet ??? Ciclesonide (OMNARIS) 50 mcg Kirklin, Non-Aerosol ??? albuterol 90 mcg/actuation HFA Aerosol Inhaler ??? buPROPion (WELLBUTRIN) 100 mg Tablet ??? sertraline (ZOLOFT) 100 mg Tablet ??? atorvastatin (LIPITOR) 40 mg Tablet ??? pantoprazole (PROTONIX) 40 mg Tablet, Delayed Release (E.C.) ??? oxybutynin (DITROPAN) 5 mg Tablet ??? azelastine (ASTELIN) 137 mcg (0.1 %) Aerosol, Kirklin Is currently tapering off sertraline Tylenol PRN, no NSAIDs ALLERGIES: No Known Allergies SURGICAL HISTORY: Past Surgical History: Procedure Laterality Date ??? PRO CREATE EARDRUM OPENING, GEN ANESTH Bilateral 02/12/2019 MYRINGOTOMY, INSERTION OF TUBE (WRVU 2.01) performed by Alexis Freed MD at [facility] ??? PRO MYRINGOPLASTY Bilateral 02/12/2019 MYRINGOPLASTY, SIMPLE (WRVU 6.03) performed by Alexis Freed MD at [facility] SOCIAL HISTORY: , 2 boys, Works as showroom sales consultant at [employer] HABITS: Alcohol: rarely, 2x/year Tobacco: 1 pack per week, has been slowly decreasing. Smoker for 20 yrs Drug use: marijuana daily FAMILY HISTORY: Father, PGF - ulcerative colitis Cousin - celiac disease There is no known family history of GI cancer (esophagus, stomach, colon). There is no history of liver or pancreas disease. Objective: PHYSICAL EXAMINATION: Wt Readings from Last 5 Encounters: 03/31/19 73.9 kg (163 lb) 03/17/19 73.9 kg (163 lb) 02/12/19 72.6 kg (160 lb) 12/10/18 72.6 kg (160 lb 0.9 oz) 12/03/18 72.6 kg (160 lb) Most Recent Vitals: 03/31/19 0954 BP: 127/81 Pulse: 82 Body mass index is 31.83 kg/m??. GEN: Alert, well-appearing, no acute distress. Appears stated age. Obese. Cooperates and answers questions appropriately. SKIN: No rashes or abnormal lesions. NECK: No lymphadenopathy. HEENT: Normal sclera, PERRL, oropharynx clear without ulceration or lesions. LUNGS: Clear to auscultation bilaterally. COR: Regular, normal S1 and S2 without murmurs ABD: Normal active bowel sounds. Soft and non-distended. Obese abdomen. Mild TTP in RLQ and LLQ. Noorganomegaly, masses, rebound, guarding, ascites. EXT: No upper extremity cyanosis, clubbing. +2 radial pulses. No peripheral edema. PSYCH: mood appropriate, good eye contact, normal interaction Impression/Recommendations: Joaquim Dunn is a 38 y.o. year old female who I am seeing as a new patient for GERD x 2 years but worsening recently. Currently taking 40 mg Protonix in AM and has significant nighttime symptoms. Also endorses chronic lower abdominal cramping, multiple BM/day, gas, bloating and nausea x years. DDx includes IBS, SIBO, celiac disease, carbohydrate malabsorption, visceral hypersensitivity. FHX positive for ulcerative colitis in father and PGF. No alarm signs today. # GERD: reviewed lifestyle measures, which she is not currently following. She is a long time smoker, which we discussed can exacerbate her GERD symptoms. Trial Protonix 40 mg BID x 8-10 weeks. If noimprovement, consider EGD +/- Garnett pH testing. # abdominal cramping, bloating, gas: trial low Fodmap diet. Labs today. Consider HBT for SIBO. Labs: TTG IgA, IgA, CBC, CMP, CRP PLAN (printed for patient): 1. GERD lifestyle measures -- see handout 2. Take Protonix twice daily (AM and PM, 30-60 minutes before meals) for 8-10 weeks, then decrease to once daily. Monitor symptoms. 3. For abdominal cramps, gas, bloating - dietary changes to start with, for 2-4 weeks. See handouts. 4. Labs today 5. Follow up with GI motility provider The patient was given my contact information and will call me with concerns or questions. Antonia Walker PA-C Section of Gastroenterology [place] [address] documented in this encounter Miscellaneous Notes * Addendum Note - Suzette Gutierrez - 03/31/2019 10:00 AM EDTAddended by: SUZETTE GUTIERREZ on: 03/31/2019 11:13 AM Modules accepted: Orders documented in this encounter Plan of Treatment Not on file documented as of this encounter Procedures Procedure Name Priority Date/Time Associated Diagnosis Comments CRP, ACUTE INFLAMMATION Routine 03/31/2019 11:25 AM EDT Chronic abdominal pain HEMOGRAM Routine 03/31/2019 11:25 AM EDT Chronic abdominal pain DIFFERENTIAL, AUTOMATED Routine 03/31/2019 11:25 AM EDT Chronic abdominal pain TISSUE TRANSGLUTAMINASE, IGA Routine 03/31/2019 11:25 AM EDT Chronic abdominal pain CBC (WITH DIFF) Routine 03/31/2019 11:25 AM EDT Chronic abdominal pain IGA Routine 03/31/2019 11:25 AM EDT Chronic abdominal pain COMPREHENSIVE METABOLIC PANEL Routine 03/31/2019 11:25 AM EDT Chronic abdominal pain documented in this encounter Results * (ABNORMAL) Differential, Automated (03/31/2019 11:25 AM EDT) Neutrophil % 62.9 % [facility] Neutrophil Absolute 6.53(H) 1.70 - 6.10 x10(3)/mc L [facility] Lymph % 29.5 % [facility] Lymphocytes Abs 3.1 0.9 - 3.2 x10(3)/mc L [facility] Monocyte % 4.4 % [facility] Monocyte Abs 0.5 0.3 - 0.9 x10(3)/mc L [facility] Eos % 2.3 % [facility] Eosinophils Abs 0.2 0.0 - 0.4 x10(3)/mc L [facility] Basophil % 0.6 % [facility] Baso Absolute 0.1 0.0 - 0.1 x10(3)/[facility] Immature Gran % 0.30 % [facility] Comment: Immature granulocytes(IG's)percentage and absolute count will include metamyelocytes, myelocytes, and promyelocytes. Blood smears from CBCs yielding IG's will be scanned manually for concordance. If this scan disagrees with the automated IG or if promyelocytes are noted, a manual differential will be performed. Immature Gran Absolute 0.03 0.00 - 0.04 x10(3)/[facility] Blood specimen (specimen) 03/31/2019 11:25 AM EDT 03/31/2019 11:33 AM EDT Narrative Resulting Agency Comment Spec In Lab Antonia MCCALL HEMATOLOGY ORDERABLE S Performing Organization Address City/State/[facility] Co de Phone Number [facility] [place] [address] * (ABNORMAL) Hemogram (03/31/2019 11:25 AM EDT) White Blood Cell 10.4(H) 4.0 - 9.5 x10(3)/[facility] Red Blood Cell 4.93 4.00 - 5.21 x10(6)/[facility] Hemoglobin 14.7 11.7 - 15.5 gm/dL [facility] Hematocrit 42.0 35.7 - 45.8 % [facility] Mean Cell Volume 85.2 82.6 - 94.4 fL [facility] Mean Cell Hemoglobin 29.8 27.1 - 32.0 pg [facility] Mean Cell Hemoglobin Concentration 35.0 31.7 - 35.0 gm/dL [facility] Platelet 261 145 - 357 x10(3)/[facility] RDW Standard Deviation 37.5 37.0 - 46.0 fL [facility] RDW coefficient of variation 12.1 11.5 - 14.1 % [facility] Mean Platelet Volume 11.0 7.6 - 12.9 fL [facility] NRBC% auto 0.0 % [facility] NRBC Absolute 0.000 0.000 - 0.000 x10(3)/mc L [facility] Blood specimen (specimen) 03/31/2019 11:25 AM EDT 03/31/2019 11:33 AM EDT Narrative Resulting Agency Comment Spec In Lab Antonia MCCALL HEMATOLOGY ORDERABLE S Performing Organization Address [facility]/ZIP Co de Phone Number [facility] [place] [address] * IgA (03/31/2019 11:25 AM EDT) IgA 125 70 - 400 mg/dL [facility] Blood specimen (specimen) 03/31/2019 11:25 AM EDT 03/31/2019 11:33 AM EDT Narrative Resulting Agency Comment Spec In Lab Bernadette Garcia MD CHEMISTRY ORDERAB LES Performing Organization Address [facility] Co de Phone Number [facility] [place] [address] * Tissue transglutaminase, IgA (03/31/2019 11:25 AM EDT) TTG IgA Ab <1.2 <4.0 (Negative) unit/mL [facility] Comment: Test Performed by: [facility] [address] [place] [address] Blood specimen (specimen) 03/31/2019 11:25 AM EDT 03/31/2019 1:06 PM EDT Narrative Resulting Agency Comment Spec In Lab Bernadette Garcia MD IMMUNOLOGY ORDERA BLES Performing Organization Address City/[facility]/ZIP Co de Phone Number [facility] [place] [address] * (ABNORMAL) CRP, acute inflammation (03/31/2019 11:25 AM EDT) Pathologist [facility] C-Reactive Protein 5.9(H) <=4.9 mg/L [facility] Blood specimen (specimen) 03/31/2019 11:25 AM EDT 03/31/2019 11:33 AM EDT Narrative Resulting Agency Comment Spec In Lab Bernadette Garcia MD CHEMISTRY ORDERAB LES [facility] [place] [address] * (ABNORMAL) Comprehensive metabolic panel (non-fasting) (03/31/2019 11:25 AM EDT) [facility] Glucose 97 65 - 199 mg/dL [facility] Comment:Diabetes: >=200 mg/d L plus symptoms Blood Urea Nitrogen 7(L) 8 - 18 mg/dL [facility] Creatinine 0.80 0.70 - 1.20 mg/dL [facility] Sodium 139 135 - 145 mmol/L [facility] Potassium 4.1 3.5 - 5.0 mmol/L [facility] Comment: Please note: ??Patients with WBC >100,000 may have falsely elevated Potassium levels. ??For accurate Potassium quantification in these patients send serum separator tube (gold top) for subsequent determinations. ??Contact the Clinical Chemistry Laboratory if there are any questions. Chloride 104 98 - 107 mmol/L [facility] Carbon Dioxide 27 22 - 31 mmol/L [facility] Anion Gap 8 5 - 15 mmol/L [facility] Calcium 8.9 8.5 - 10.5 mg/dL [facility] Protein, Total 7.4 6.1 - 8.0 gm/dL [facility] Albumin 4.2 3.2 - 5.2 gm/dL [facility] Aspartate Aminotransferase 13 0 - 30 unit/L [facility] Alanine Aminotransferase 16 0 - 30 unit/L [facility] Alkaline Phosphatase 113(H) 35 - 105 unit/L [facility] Bilirubin, Total 0.4 0.2 - 1.3 mg/dL [facility] Est Glomerular Filtration Rate 94 >=60 mL/min/1. 73 m?? [facility] Comment: The eGFR was calculated using the CKD-EPI equation. As with all creatinine based estimates of kidney function, eGFR values calculated with the CKD-EPI equation are not accurate in patients with acute kidney failure, extremes of body mass or the acutely ill. http://Little[employer]/Oginnkf eGFR 108 >=60 mL/min/1. 73 m?? [facility] Comment: The eGFR was calculated using the CKD-EPI equation. As with all creatinine based estimates of kidney function, eGFR values calculated with the CKD-EPI equation are not accurate in patients with acute kidney failure, extremes of body mass or the acutely ill. http://Little[employer]/Dailyplaces GmbHnkf Blood specimen (specimen) 03/31/2019 11:25 AM EDT 03/31/2019 11:33 AM EDT Narrative Resulting Agency Comment Spec In Lab Bernadette Garcia MD CHEMISTRY ORDERAB LES Performing Organization Address City/State/[facility] Co de Phone Number [facility] [place] [address] documented in this encounter Visit Diagnoses Diagnosis Gastroesophageal reflux disease, esophagitis presence not specified Chronic abdominal pain Abdominal pain, unspecified site Abdominal bloating Flatulence, eructation, and gas pain Nausea without vomiting documented in this encounter Care Teams Deposit Refund Clerk Relationship Specialty Start Date End Date Jax Conklin DNP [address] [place] [address] PCP - General Family Medicine 03/31/19 06/16/21 documented as of this encounter
--- OUTSIDE RECORDS SUMMARY | 2024-09-14 17:33 | XMS_ITS | Encounter Summary ---
Author Organization [facility] [place] [address] Care Team Providers Care Community Reinvestment Act Officer Name Role Phone Simona Jack APRN Primary Care Provider Reason for Visit * Auth/Cert Specialty Diagnoses / Procedures Referred By Richard tavares Referred To Contact Diagnoses conductive hearing loss Procedures PRO MYRINGOPLASTY PRO CREATE EARDRUM OPENING, GEN ANESTH MYRINGOPLASTY, SIMPLE (WRVU 6.03) MYRINGOTOMY, INSERTION OF TUBE (WRVU 2.01) MODIFIER IRIDEX LASER Referral ID Status Reason Start Date Expiration Date Visits Re quested Visits Authorized [id number] 1 1 Encounter Details Date Type Department Care Team (Late st Contact Info) Description 02/12/2019 9:28 AM EDT Anesthesia Event [facility] [place] [address] Xiang Calderon MD [facility] DR [place] [address] Tariq Ramesh MD Anesthesia Record Procedure Summary Procedure Name Responsible Anesthesiologist Anesthesia Start Time Anesthesia Stop Time MYRINGOPLASTY, SIMPLE (WRVU 6.03) (Bilateral: Ear) Xiang Calderon MD 02/12/19 0928 02/12/19 1038 Events Date Time Event Comment 02/12/2019 0915 0928 Start 0930 AN Verify 0931 An Start Data 0932 An Induction 0934 An Intubation 0935 Break/Relief In XIANG Tavares PRECIOUS Torres MD 0936 Anesthesia Ready 0937 Procedure Start 0945 Break/Relief Out 1031 an stop data 1038 Recovery or ICU Handoff Azalia ent care was transferred to the destination unit staff after review of the patient's medical history, current anesthetic/surgical status and plan, according to the Provider Handoff Checklist. 1038 Stop 1042 Extubation/LMA Out By GAY Meds Name Total Midazolam 2 mg fentaNYL 125 mcg IV Lidocaine 50 mg Propofol 250 mg Propofol INF 257.73 mg Dexmedetomidine 8 mcg Dexamethasone 8 mg Ondansetron 4 mg Ketorolac 30 mg PHENYLephrine 200 mcg ePHEDrine 10 mg Albuterol Inhaler 12 puff lactated ringers infusion 1,000 mL * Agents Name O2 Air N2O Sevoflurane (et) Desflurane (et) Isoflurane (et) * Blood No blood administrations on file. Lines, Drains, and Airways Type Details Placement Removal (RETIRED) Peripheral IV Line - Single Lumen 02/12/19; 0916; median cubital vein (antecubital fossa), right; 20 gauge; distraction, intradermal injection, tolerated well, appears comfortable; 02/12/19; 1125 02/12/19 0916 by Kamila Amaro RN 02/12/19 1125 by Gal Gerard Supraglottic Mask Ventilation: No t Attempted (0); LMA Type: Unique; LMA Size: 4; Inserted by: Main RASHID; Removal Date: 02/12/19; Removal Time: 1042 02/12/19 0934 by Meme Quach CRNA 02/12/19 1042 by Meme Quach CRNA Incision 02/12/19; 0939; ear (tube placement and laser,); 04/16/22 (LDA cleanup utility RA#[id number]); 1715 (LDA cleanup utility RA#[id number]) 02/12/19 0939 by Pau French RN 04/16/22 1715 by Eulalia Call Incision 02/12/19; 1000; ear (tube placement and laser,); 04/16/22 (LDA cleanup utility RA#[id number]); 1715 (LDA cleanup utility RA#[id number]) 02/12/19 1000 by Pau French RN 04/16/22 1715 by Eulalia Call documented in this encounter Social History Tobacco Use Types Packs/Day Years [...] on file documented as of this encounter OR Notes * Anesthesia Postprocedure Evaluation - Xiang Calderon MD - 02/12/2019 3:02 PM EDT Department of Anesthesiology Post-procedure Note Patient: Joaquim Dunn Procedure Summary Date: 02/12/19 Room / Location: [facility] [place] [address] [place] [address] Anesthesia Start: 927 Anesthesia Stop: 1037 Procedures: MYRINGOPLASTY, SIMPLE (WRVU 6.03) (Bilateral Ear) MYRINGOTOMY, INSERTION OF TUBE (WRVU 2.01) (Bilateral Ear) MODIFIER IRIDEX LASER (N/A ) Diagnosis: Chronic allergic rhinitis Eustachian tube disorder, bilateral Conductive hearing loss, bilateral Chronic otitis media of right ear with effusion (conductive hearing loss) Surgeon: Alexis Freed MD Responsible Provider: Xiang Calderon MD Anesthesia Type: general ASA Status: 2 All Anesthesia Providers: Anesthesiologist: Xiang Calderon MD LACE MACHINE OPERATOR: Meme Quach CRNA Vitals Value Taken Time BP 119/88 02/12/2019 11:10 AM Temp Pulse 85 02/12/2019 11:10 AM Resp 18 02/12/2019 11:10 AM SpO2 94 % 02/12/2019 11:10 AM Pain Level 0 02/12/2019 11:23 AM Patient Location: PACU/[facility] Level of Consciousness: Awake and Alert Pain Management: Satisfactory Analgesia PONV: None Cardiovascular Status: Hemodynamically Stable Respiratory Status: Stable Respiratory Status Postoperative Fluid Status: Intravascular EUvolemia Possible Anesthetic Complications: NONE apparent at time of evaluation Final Primary Anesthesia Type: General (The anesthetic type performed was the same as planned.) Comments: * Anesthesia Preprocedure Evaluation - Xiang Calderon MD - 02/12/2019 8:59 AM EDT Pre-Anesthesia Evaluation for: Joaquim Dunn a 38 y.o. female. Procedure(s): MYRINGOPLASTY, SIMPLE (WRVU 6.03) MYRINGOTOMY, INSERTION OF TUBE (WRVU 2.01) MODIFIER IRIDEX LASER Patient Active Problem List Diagnosis ??? Rhinitis, nonallergic, chronic ??? Mild intermittent asthma, uncomplicated ??? Gastroesophageal reflux disease ??? Elevated blood pressure reading ??? Cigarette nicotine dependence with nicotine-induced disorder Past Medical History: Diagnosis Date ??? Asthma ??? GERD (gastroesophageal reflux disease) No past surgical history on file. Social History Tobacco Use ??? Smoking status: Current Every Day Smoker Packs/day: 1.00 Years: 20.00 Pack years: 20.00 Types: Cigarettes ??? Smokeless tobacco: Never Used ??? Tobacco comment: one pack a week Substance Use Topics ??? Alcohol use: Not Currently Social History Substance and Sexual Activity Drug Use Not on file Comment: She smokes pot daily No Known Allergies Medications: MAR and/or home medications have been reviewed. Physical Exam: There were no vitals filed for this visit. There is no height or weight on file to calculate BMI. Airway Assessment: Mallampati: II TM distance: >3 FB Neck ROM: full Cardiovascular Assessment: Rhythm: regular Rate: normal Pulmonary Assessment: breath sounds clear to auscultation Dental Assessment: - normal exam Misc Assessment: Patient is wearing No contact(s). IV access: Peripheral line Anesthesia Plan: ASA 2 general, with a(n) intravenous induction Region - Other Informed Consent: Anesthetic plan and risks discussed with patient. PAT Clinic Note Attending NOTE Brief HPI: 38 y.o. with Eustachian tube dysfunction to OR for myringotomy tube placement Diagnosis ??? Rhinitis, nonallergic, chronic ??? Mild intermittent asthma ??? Gastroesophageal reflux disease: controlled ??? Cigarette nicotine dependence with nicotine-induced disorder Past Medical History: Diagnosis Date ??? Asthma ??? GERD (gastroesophageal reflux disease) METS:>4 Cardiac Symptoms: denies EKG: none ECHO: none LABS: COLLAR CUTTER - Risks of anesthesia and pregancy discussed with patient and she wishes to proceed to OR without obtaining a UPT Type and Screen: No results found for: ABORH Past anesthetic problems: denies Previous airway notes (on eDH): none NPO status: Reviewed and appropriate Anesthetic Plan: GA Monitoring: Standard ASA monitors documented in this encounter Plan of Treatment Not on file documented as of this encounter Visit Diagnoses Not on filedocumented in this encounter Administered Medications Inactive Administered Medications - up to 3 most recent administrations Medication Order MAR Action Action Date Dose Rate Site albuterol 90 mcg/actuation inhaler PRN, Starting on Jasmin 02/12/19 at 1030, Until Jasmin 02/12/19 at 1039, Anesthesia Intra-op, Routine Given 02/12/2019 10:30 AM EDT 6 puffs Given 02/12/2019 10:13 AM EDT 6 puffs dexamethasone (DECADRON) injection PRN, Starting on Jasmin 02/12/19 at 0945, Until Jasmin 02/12/19 at 1038, Anesthesia Intra-op, Routine Given 02/12/2019 9:45 AM EDT 8 mg dexmedetomidine (PRECEDEX) injection PRN, Starting on Jasmin 02/12/19 at 0939, Until Jasmin 02/12/19 at 1038, Anesthesia Intra-op, Routine Given 02/12/2019 9:39 AM EDT 4 mcg Given 02/12/2019 9:34 AM EDT 4 mcg ePHEDrine 5 mg/mL multi-dose injection PRN, Starting on Jasmin 02/12/19 at 1021, Until Jasmin 02/12/19 at 1038, Anesthesia Intra-op, Routine Given 02/12/2019 10:21 AM EDT 10 mg fentaNYL 50 mcg/mL multi-dose injection PRN, Starting on Jasmin 02/12/19 at 0936, Until Jasmin 02/12/19 at 1038, Anesthesia Intra-op, Routine Given 02/12/2019 10:15 AM EDT 25 mcg Given 02/12/2019 9:48 AM EDT 50 mcg Given 02/12/2019 9:36 AM EDT 50 mcg ketorolac (TORADOL) injection PRN, Starting on Jasmin 02/12/19 at 0948, Until Jasmin 02/12/19 at 1038, Anesthesia Intra-op, Routine Given 02/12/2019 9:48 AM EDT 30 mg lactated ringers infusion 1,000 mL, at 100 mL/hr, Intravenous, CONTINUOUS, Starting on Jasmin 02/12/19 at 0915, Until Jasmin 02/12/19 at 1125, Day of Surgery (Day of Procedure) New Bag 02/12/2019 10:37 AM EDT New Bag 02/12/2019 9:18 AM EDT 1,000 mLs 100 mL/hr lidocaine (PF) (XYLOCAINE) 100 mg/5 mL (2 %) injection PRN, Starting on Jasmin 02/12/19 at 0932, Until Jasmin 02/12/19 at 1038, Anesthesia Intra-op, Routine Given 02/12/2019 9:32 AM EDT 50 mg midazolam (PF) (VERSED) multi-dose injection PRN, Starting on Jasmin 02/12/19 at 0928, Until Jasmin 02/12/19 at 1049, Anesthesia Intra-op, Routine Given 02/12/2019 9:28 AM EDT 2 mg ondansetron (ZOFRAN) injection PRN, Starting on Jasmin 02/12/19 at 0948, Until Jasmin 02/12/19 at 1038, Anesthesia Intra-op, Routine Given 02/12/2019 9:48 AM EDT 4 mg PHENYLephrine in NS (PF) (TOMASA-SYNEPHRINE) 0.8 mg/10 mL (80 mcg/mL) multi-dose injection Syrg PRN, Starting on Jasmin 02/12/19 at 0950, Until Jasmin 02/12/19 at 1038, Anesthesia Intra-op, Routine Given 02/12/2019 10:17 AM EDT 80 mcg Given 02/12/2019 10:00 AM EDT 40 mcg Given 02/12/2019 9:55 AM EDT 40 mcg propofol (DIPRIVAN) 10 mg/mL bolus injection (Anesthesia) PRN, Starting on Jasmin 02/12/19 at 0932, Until Jasmin 02/12/19 at 1038, Anesthesia Intra-op Given 02/12/2019 10:26 AM EDT 50 mg Given 02/12/2019 9:32 AM EDT 200 mg propofol (DIPRIVAN) infusion CONTINUOUS PRN, Starting on Jasmin 02/12/19 at 0936, Until Jasmin 02/12/19 at 1038, Anesthesia Intra-op, Routine Rate/Dose Change 02/12/2019 10:03 AM EDT 50 mcg/kg/min 21.8 mL/hr Rate/Dose Change 02/12/2019 9:46 AM EDT 100 mcg/kg/min 43. 6 mL/hr New Bag 02/12/2019 9:36 AM EDT 50 mcg/kg/min 21.8 mL/hr documented in this encounter Care Teams Community Reinvestment Act Officer Relationship Specialty Start Date End Date Simona Jack APRN PCP - General Family Medicine 08/25/18 03/18/19 documented as of this encounter
--- OUTSIDE RECORDS SUMMARY | 2024-09-14 17:33 | XMS_ITS | Encounter Summary ---
[place] [address] Care Team Providers Care Kennel Assistant Name Role Phone Unknown Primary Care Provider Unavailabl e Encounter Details Date Type Department Care Team (Late st Contact Info) Description 01/23/2019 Telephone [place] [id number] Kian Lara Social History Tobacco Use Types [...] on filedocumented in this encounter Care Teams Kennel Assistant Relationship Specialty Start Date End Date Unknown None PCP - General 03/19/19 03/30/19 documented as of this encounter
--- OUTSIDE RECORDS SUMMARY | 2024-09-14 17:33 | XMS_ITS | Encounter Summary ---
Author Organization [facility] Address [facility] [place] [address] Care Team Providers Care Licensed Vocational Nurse Name Role Phone Simona Jack APRN Primary Care Provider Reason for Visit * Auth/Cert Specialty Diagnoses / Procedures Referred By Richard t Referred To Contact Diagnoses conductive hearing loss Procedures PRO MYRINGOPLASTY PRO CREATE EARDRUM OPENING, GEN ANESTH MYRINGOPLASTY, SIMPLE (WRVU 6.03) MYRINGOTOMY, INSERTION OF TUBE (WRVU 2.01) MODIFIER IRIDEX LASER Referral ID Status Reason Start Date Expiration Date Visits Re quested Visits Authorized [id number] 1 1 Encounter Details Date Type Department Care Team (Latest Contact Info) Description 02/12/2019 8:50 AM EDT - 02/12/2019 11:26 AM EDT Hospital Encounter [place] [address] Alexis Freed MD [facility] [place] [address] Discharge Disposition: Home Social History Tobacco Use Types Packs/Day Years [...] Sign Reading Time Taken Comments Blood Pressure 119/88 02/12/2019 11:10 AM EDT Pulse 85 02/12/2019 11:10 AM EDT Temperature 36 ??C (96.8 ??F) 02/12/2019 10:33 AM EDT Respiratory Rate 18 02/12/2019 11:10 AM EDT Oxygen Saturation 94% 02/12/2019 11:10 AM EDT Inhaled Oxygen Concentration - - Weight 72.6 kg (160 lb) 02/12/2019 9:01 AM EDT Height 152.4 cm (5') 02/12/2019 9:01 AM EDT Body Mass Index 31.25 02/12/2019 9:01 AM EDT documented in this encounter Discharge Instructions * Discharge Instructions* Kamila Amaro RN - 02/12/2019 9:03 AM EDT General Anesthesia Discharge Instructions Go home and rest. You may be sleepy for several hours. Take it easy as sudden position changes may cause nausea and/or dizziness. Use caution on stairs. Do not smoke if you are alone. Follow a light to regular diet as tolerated today. If nausea occurs, start with clear liquids, and progress slowly to a regular diet. Do not drive, operate machinery, drink alcoholic beverages or make any legal decisions after havinggeneral anesthesia. The medications given change your reaction time and alter your judgement. IV site -- slight redness is normal, you can use warm compresses. If tenderness and redness increases or foul drainage occurs, please contact your M.D. Patients who have had endotracheal tubes/LMA (tubes used by the anesthesia staff to ensure a safe airway during your operation) may have a sore throat. This is normal and cold liquids or soothing lozenges will help ease this discomfort. Narcotic pain medications can cause constipation, please ask the surgeons office what they recommend for prevention of this. Some non-pharmaceutical means of constipation prevention include increasing intake of fluids, eating more fruits and vegetables as well as fruit juices. If you are uncomfortable and/or unable to urinate within 8 hours of discharge and it is before 5 pm, call your physician. If it is after 5pm go to the closest emergency room or call the hospital milling/polishing operator at [phone] and ask for physician regional sales leader covering for your physician. Questions or problems after 5pm or on a weekend: Call the [facility] milling/polishing operator at and ask for the physician regional sales leader covering for your doctor. * Patient Instructions* Mateus Gross MD - 02/12/2019 10:31 AM EDT Images from the original note were not included. PE (Pressure Equalization) Tubes Pressure equalizing tubes (PE tubes) are small tubes that are placed through a tiny surgical cut inthe eardrum. PE tubes are also called tympanostomy tubes or ventilation tubes. These tubes are usually placed because of: Frequent middle ear infections. Chronic fluid in the middle ear. Hearing or speech problems due to repeated middle ear infections or fluid build up. PE tubes help prevent: Infections Fluid build up. It is believed tubes do this because they keep the middle ear space full of air (ventilated). There are two kinds of PE tubes: Short term - these tubes usually last only 6 to 9 months. They fall out on their own. jail - these stay in place longer than short term tubes. Often they have to be removed by the surgeon. Most PE tubes fall out after a while into the outer ear canal. The eardrum seals itself shut. The tube is easily removed from the ear canal by a caregiver or it falls out on its own. Children are usually given a mild, general anesthetic before surgery. This is something that puts them to sleep. Older children or adults may only need a local anesthetic. This means medicines are used to make the eardrum numb. BEFORE THE PROCEDURE: Follow the instructions given by your surgeon as to how to prepare for this surgery. LET YOUR CAREGIVER KNOW ABOUT: Previous reactions to anesthesia. Reactions to anesthesia by anyone in your family. RISKS & COMPLICATIONS OF THE PROCEDURE There are few risks to this simple surgery. The anesthesia specialist will discuss the risks of anesthesia. Sometimes the eardrum does not heal after the tube falls out. If a hole in the eardrum persists, the hole can be repaired by minor surgery. AFTER THE PROCEDURE: It is normal to have some pain or fullness in the ear after surgery There may be clear or blood tinged fluid draining from the ear for a few days after the surgery. Fluid may also drain in the future with colds. If hearing was decreased due to fluid build up, there should be an improvement right after the surgery. Use the ear drops for the first 5 days after surgery. HOME CARE INSTRUCTIONS Because the PE tube opens a tiny hole between the outer and the middle ear, water can accidentally travel into the middle ear from the outside. Consider using ear plugs for swimming in ponds or patino, but pools or bath water are usually OK. SEEK MEDICAL CARE IF: Ear drainage that looks thick, smells bad or is bloody. Decreased hearing. Balance problems. Increasing ear pain. SEEK IMMEDIATE MEDICAL CARE IF: Redness, tenderness or swelling of the ear canal or ear itself. documented in this encounter Medications at Time of Discharge Medication Sig Dispensed Refills Start Date End Date acetaminophen (TYLENOL) 500 mg Tablet Take 500 mg by mouth every 6 hours as needed for Pain. Ciclesonide (OMNARIS) 50 mcg [place], Non-Aerosol 2 sprays each nostril once daily 12.5 g 3 01/16/2019 albuterol 90 mcg/actuation HFA Aerosol Inhaler Inhale 2 puffs into the lungs every 4 hours as needed for Wheezing, Shortness of Breath or Cough. 1 Inhaler 1 12/03/2018 buPROPion (WELLBUTRIN) 100 mg Tablet Take 100 mg by mouth 2 times daily. atorvastatin (LIPITOR) 40 mg Tablet Take 40 mg by mouth daily. oxybutynin (DITROPAN) 5 mg Tablet Take 5 mg by mouth 2 times daily. azelastine (ASTELIN) 137 mcg (0.1 %) Aerosol, [place] 2 sprays by Nasal route 2 times daily. Use in each nostril as directed 30 mL 12 12/10/2018 07/01/2019 sertraline (ZOLOFT) 100 mg Tablet Take 50 mg by mouth daily. 07/01/2019 pantoprazole (PROTONIX) 40 mg Tablet, Delayed Release (E.C.) Take 40 mg by mouth daily. 07/01/2019 documented as of this encounter Progress Notes * Gal Gerard RN - 02/12/2019 10:22 AM EDT Discharge instructions and medications reviewed with patient and escort. All questions answered andwritten copy sent home with patient. documented in this encounter H&P Notes * Mateus Gross MD - 02/12/2019 9:16 AM EDT OTOLARYNGOLOGY - HEAD & NECK SURGERY PRE OP H&P Name: Joaquim Dunn Age/Sex: 38 y.o. female Attending: Alexis Freed MD Interval History Joaquim Dunn's condition unchanged since H&P originally performed. Vitals Last value 24hr Range Temperature: 36.2 ??C (97.2 ??F) Temp: [36.2 ??C (97.2 ??F)] Heart Rate: 74 Heart Rate: [74] Blood Pressure: 134/81 BP: (134)/(81) Respiratory Rate: 18 Resp: [18] SpO2: 99 % SpO2: [99 %] Physical Exam General: NAD, alert. Heart: RRR Lungs: CTAB ASSESSMENT & PLAN Joaquim Dunn is a 38 y.o. female who is here today due to conductive hearing loss. After extensive discussion of the risks, benefits, and alteratives of surgical intervention, the patient consented to proceed with surgery. Proceed to OR for: Procedure(s): MYRINGOPLASTY, SIMPLE (WRVU 6.03) MYRINGOTOMY, INSERTION OF TUBE (WRVU 2.01) MODIFIER IRIDEX LASER __ MATEUS GROSS MD, PGY5 02/12/19 9:16 AM Pager: [phone] documented in this encounter Miscellaneous Notes * Op Note - Mateus Gross MD - 02/12/2019 10:26 AM EDT [facility]ative [place] Patient Name: Joaquim Dunn : [id number] MR#: [id number] Case Date: 02/12/2019 Surgeon: Surgeon(s) and Role: * Alexis Freed MD - Primary * Mateus Gross MD - Resident Preoperative diagnosis: conductive hearing loss Postoperative diagnosis: conductive hearing loss Procedure(s) (LRB): MYRINGOPLASTY, SIMPLE (WRVU 6.03) (Bilateral) MYRINGOTOMY, INSERTION OF TUBE (WRVU 2.01) (Bilateral) MODIFIER IRIDEX LASER (N/A) Findings: Right sided TM retracted with mucoid effusion in middle ear. Atelectatic drum posteriorly, draped over and adherent to incus. Left sided TM in more neutral position with atelectatic area posteriorly between manubrium and incus, drum draped over and adherent to incus. Anesthesia: General Estimated Blood Loss: * No values recorded between 02/12/2019 9:39 AM and 02/12/2019 10:18 AM * Specimens removed during surgery: None Drains: None Surgical Closure: NA Disposition: awakened from anesthesia, extubated and taken to the recovery room in a stable condition, having suffered no apparent untoward event. Condition: doing well without problems (Please see the Surgical Encounter Summary for any Implant and Specimen details pertinent to this patient.) HPI/Surgical Indications: Joaquim Dunn is a 38 y.o. female with allergic rhinitis, deviated nasal septum, turbinate hypertrophy, possible chronic sinusitis, and ETD. 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 Right middle ear effusion. TM retracted, possibly deeply onto ossicular chain. Recommended starting with bilateral t-tubes in the OR, will use right angle pick to dissect TM off of the incus and tighten the TM with laser. Procedure Description: The patient was taken to the operating room, placed in the supine position, and general anesthesia was achieved with an LMA without complication. The external auditory canals were examined and cleaned of cerumen under the operating microscope. Anterior-inferior quadrant myringotomy was performed on both sides. A marking pen was then used to paint the TM purple and the Iridex laser (1000, 100, 500) was used to tighten the TM, this was performed bilaterally. T tube style PE tubes placed bilaterally and flushed with Ofloxacin otic drops. Infection Bundle used? N/A Associated attestation - Alexis Freed MD - 02/12/2019 2:56 PM EDT Attestation: Case Date: 02/12/2019 I was present and I participated during the entire procedure (does not need to include opening and closing). Alexis Freed MD 02/12/2019 documented in this encounter Plan of Treatment Not on file documented as of this encounter Procedures Procedure Name Priority Date/Time Associated Diagnosis Comments MODIFIER IRIDEX LASER 02/12/2019 9:29 AM EDT Chronic allergic rhinitis Eustachian tube disorder, bilateral Conductive hearing loss, bilateral Chronic otitis media of right ear with effusion MYRINGOTOMY, INSERTION OF TUBE (WRVU 2.01) 02/12/2019 9:29 AM EDT Chronic allergic rhinitis Eustachian tube disorder, bilateral Conductive hearing loss, bilateral Chronic otitis media of right ear with effusion MYRINGOPLASTY, SIMPLE (WRVU 6.03) 02/12/2019 9:29 AM EDT Chronic allergic rhinitis Eustachian tube disorder, bilateral Conductive hearing loss, bilateral Chronic otitis media of right ear with effusion documented in this encounter Visit Diagnoses Not on filedocumented in this encounter Administered Medications Inactive Administered Medications - up to 3 most recent administrations Medication Order MAR Action Action Date Dose Rate Site lactated ringers infusion 1,000 mL, at 100 mL/hr, Intravenous, CONTINUOUS, Starting on Jasmin 02/12/19 at 0915, Until Jasmin 02/12/19 at 1125, Day of Surgery (Day of Procedure) New Bag 02/12/2019 10:37 AM EDT New Bag 02/12/2019 9:18 AM EDT 1,000 mLs 100 mL/hr documented in this encounter Active and Recently Administered Medications Times are shown in EDT. Continuous Medication Order 02/10/2019 02/11/2019 02/12/2019 lactated ringers infusion (CANCELED) 1,000 mL, at 100 mL/hr, Intravenous, CONTINUOUS, Starting on Jasmin 02/12/19 at 0915, Until Jasmin 02/12/19 at 1125, Day of Surgery (Day of Procedure) 0918 (New Bag - Prov ider: Kamila Amaro RN)1015 (Anesthesia Volume Adjustment - Provider: Meme Quach CRNA)1037 (New Bag - Provider: Meme Quach CRNA) PRN Medication Order 02/10/2019 02/11/2019 02/12/2019 ciprofloxacin-hydrocortisone (CIPRO HC OTIC) otic suspension (CANCELED) ONCE PRN, Starting on Jasmin 02/12/19 at 0939, Until Jasmin 02/12/19 at 1329, Intra-Operative (Intra-Procedure), Routine 0939 (Given - Provid er: Alexis Freed MD)1018 (Given - Provider: Alexis Freed MD) documented in this encounter Care Teams Licensed Vocational Nurse Relationship Specialty Start Date End Date Simona Jack APRN PCP - General Family Medicine 08/25/18 03/18/19 documented as of this encounter
--- OUTSIDE RECORDS SUMMARY | 2024-09-14 17:33 | XMS_ITS | Encounter Summary ---
[place] [address] Care Team Providers Care Produce Laborer Name Role Phone Katerin Jax Joseph [facility] Primary Care Provider Encounter Details Date Type Department Care Team (Latest Contact Info) Description 03/17/2019 4:00 PM EDT Office Visit Audiology at [address] [id number] Nadege Tatum AUD Mixed conductive and sensorineural hearing loss, bilateral [...] as of this encounter Progress Notes * Nadege Tatum AUD - 03/17/2019 4:00 PM EDT AUDIOLOGIC EVALUATION [place] [id number] Joaquim Dunn, 38 y.o., was seen on 03/17/2019 for an audiologic evaluation in conjunction with Dr. Freed in Otolaryngology. Please refer to the electronic audiogram listed under Procedures in Chart Review for findings, impressions and recommendations. Enclosure: Audiogram [place] [address] documented in this encounter Plan of Treatment Not on file documented as of this encounter Procedures Procedure Name Priority Date/Time Associated Diagnosis Comments COMPREHENSIVE HEARING TEST Routine 03/17/2019 3:58 PM EDT documented in this encounter Results * Comprehensive hearing test (03/17/2019 3:58 PM EDT) 03/17/2019 3:58 PM EDT Narrative AUDBASE COMP - 03/17/2019 3:58 PM EDT Seen in conjunction with Dr. Freed s/p PE tubes on 02/12/19. She denied any new otologic concerns in the interim. Still experiences some crackling in the ears. She feels her hearing is better though may still ask for repetition at times. Results: Borderline normal to mild mixed hearing loss AU. Significant improvement compared to 11/04 for both ears, though a sensorineural component remains. ??Recorded MEEI list. QuickSIN yielded a +0.5 dB SNR loss AU at 70 dB HL. Rec: Follow up with ENT. Procedure Note Unknown - 03/17/2019 Seen in conjunction with Dr. Freed s/p PE tubes on 02/12/19. She deniedany new otologic concerns in the interim. Still experiences some crackling in the ears. Shefeels her hearing is better though may still ask for repetition at times. Results: Borderline normal to mild mixed hearing loss AU. Significantimprovement compared to 11/04 for both ears, though a sensorineural component remains. RecordedMEEI list. QuickSIN yielded a +0.5 dB SNR loss AU at 70 dB HL. Rec: Follow up with ENT. Unknown AUDIOLOGY [facility] AUDBASE COMP documented in this encounter Visit Diagnoses Diagnosis Mixed conductive and sensorineural hearing loss, bilateral Mixed hearing loss, bilateral documented in this encounter Care Teams Produce Laborer Relationship Specialty Start Date End Date Jax Conklin, CLAUDETTE [address] [place] [address] PCP - General Family Medicine 03/31/19 06/16/21 documented as of this encounter
--- OUTSIDE RECORDS SUMMARY | 2024-09-14 17:33 | XMS_ITS | Encounter Summary ---
[place] [address] Care Team Providers Care Senior Electrical Designer Name Role Phone Simona Jack APRN Primary Care Provider [phone] Reason for Visit * Reason Onset Date Comments Medication Refill 01/02/2019 Encounter Details Date Type Department Care Team (Late st Contact Info) Description 01/02/2019 [place] [address] Caridad De Luna MD Social History Tobacco Use Types Packs/Day Years [...] on filedocumented in this encounter Care Teams Senior Electrical Designer Relationship Specialty Start Date End Date Simona Jack APRN PCP - General Family Medicine 08/25/18 03/18/19 documented as of this encounter
--- OUTSIDE RECORDS SUMMARY | 2024-09-14 17:33 | XMS_ITS | Encounter Summary ---
[place] [address] Care Team Providers Care Store Associate Name Role Phone Concepcion Stevenson APRN Primary Care Provider [phone] Encounter Details Date Type Department Care Team (Late st Contact Info) Description 04/29/2012 Notes [place] [address] Elaine Steinberg RN Social History Tobacco Use Types Packs/Day Years Used Date Smoking Tobacco: Never Assessed Sex and Gender Information Value Date Recorded Sex Assigned at Female 04/13/2024 11:52 PM EDT Gender Identity Female 04/13/2024 11:52 PM EDT Sexual Orientation Not on file documented as of this encounter Progress Notes * Elaine Steinberg RN - 04/29/2012 1:36 PM EDT Medication ordered yesterday by Dr. Francisco Morphine-20mg/ml and Bupivacaine 40mg/ml= 40ml to beadministered daily via Intrathecal pump was incorrectly ordered for this patient. The medication was never administered. Dr. Francisco is aware of this situation. Call made to [facility] - who prepared this medication. Their records were changed accordingly. documented in this encounter Plan of Treatment Not on file documented as of this encounter Visit Diagnoses Not on filedocumented in this encounter Care Teams Store Associate Relationship Specialty Start Date End Date Concepcion Stevenson APRN [address] [place] [id number] PCP - General 07/11/10 08/24/18 documented as of this encounter
--- OUTSIDE RECORDS SUMMARY | 2024-09-14 17:33 | XMS_ITS | Encounter Summary ---
[place] [address] Care Team Providers Care Investigative Writer Name Role Phone Simona Jack APRN Primary Care Provider Reason for Referral * Allergy Testing (Routine) - Closed Specialty Diagnoses / Procedures Referred By Contkit t Referred To Contact Allergy Diagnoses Chronic allergic rhinitis Eustachian tube disorder, bilateral Conductive hearing loss, bilateral Chronic otitis media of right ear with effusion Alexis Freed MD [facility] [place] [address] [facility] [address] [place] [id number] Referral ID Status Reason Start Date Expiration Date V isits Requested Visits Authorized [id number] Closed Consult, Test & Treat 10/30/2018 10/30/2019 1 1 Reason for Visit * Reason Comments Eustachian Tube Dysfunction R side feels full/under water since May, cant hear TV at all, can't hear behind. L ear seems normal * Consultation (Urgent) - Specialty Diagnoses / Procedures Referred By Richard cueva Referred To Contact Otolaryngology Diagnoses EUSTACHIAN TUBE DYSFUNCTION BILATERAL Simona Jack APRN [address] [place] [address] [place] [address] Alexis Freed MD [facility] [place] [address] Referral ID Status Reason Start Date Expiration Date V isits Requested Visits Authorized [id number] Consult, Test & Treat [facility] 08/25/2018 08/25/2019 6 6 Encounter Details Date Type Department Care Team (Late st Contact Info) Description 10/30/2018 8:20 AM EDT Office [place] [address] Alexis Freed MD [facility] [place] [address] Chronic allergic rhinitis; Eustachian tube disorder, bilateral; Conductive hearing loss, bilateral; Chronic otitis media of right ear with effusion Social History Tobacco Use Types Packs/Day Years Used Date Smoking Tobacco: Every Day Cigarettes 1 20 Smokeless Tobacco: Never Sex and Gender Information Value Date Recorded Sex Assigned at Female 04/13/2024 11:52 PM EDT Gender Identity Female 04/13/2024 11:52 PM EDT Sexual Orientation Not on file documented as of this encounter Last Filed Vital Signs Vital Sign Reading Time Taken Comments Blood Pressure 125/93 10/30/2018 8:31 AM EDT Pulse 86 10/30/2018 8:31 AM EDT Temperature 36.6 ??C (97.9 ??F) 10/30/2018 8:31 AM ED T Respiratory Rate 20 10/30/2018 8:31 AM EDT Oxygen Saturation 99% 10/30/2018 8:31 AM EDT Inhaled Oxygen Concentration - - Weight 72.8 kg (160 lb 9.6 oz) 10/30/2018 8:31 A M EDT Height 152.4 cm (5') 10/30/2018 8:31 AM EDT Body Mass Index 31.37 10/30/2018 8:31 AM EDT documented in this encounter Progress Notes * Alexis Freed MD - 10/30/2018 8:20 AM EDT Images from the original note were not included. [facility] Otolaryngology - Head and Neck Surgery Alexis Freed MD 10/30/18 8:40 AM [place], [place] [address] Office Patient Name: Joaquim Dunn Date of : 1980 PCP: Simona Jack APRN Chief Complaint: right ear hearing loss History of Present Illness: Joaquim Dunn is a 38 y.o. year old female with a history of allergic rhinitis who was seen today atthe request of Simona Jack in consultation for Eustachian tube dysfunction. Childhood ear infections frequently. In May started having right ear fullness and feeling like under water. For one week in Aug, it was better, but otherwise feels full and diminished hearing. No prior ear surgery. + sinonasal concerns. Constant PND. + allergic rhinitis, possible sinusitis, childhood asthma. Takes flonase and loratadine every day. 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 Symptoms: Tinnitus: no Otalgia: no Otorrhea: no Vertigo: no The symptoms are exacerbated by nothing and alleviated by nothing. Past treatments have included nothing. No Regular qtip use or ear flushing. She has candeled them in the past. No family history of hearing loss. No prior hearing aid use. No acoustic trauma, barotrauma, or head injury. + excessively loud sound exposure history with music in her 20's No ototoxic drug exposures. No history of Lyme disease. No prior ear surgery. Radiology images personally reviewed: none Audiogram: Below 10 point Review of Systems was normal except for pertinent positives and negatives included in the History of Present Illness. Past Medical and Surgical History There is no problem list on file for this patient. Current Outpatient Medications on File Prior to Visit Medication Sig Dispense Refill ??? fluticasone (FLONASE) 50 mcg/actuation [place], Suspension 1 spray daily. Indications: inflammation of the nose due to an allergy ??? loratadine 10 mg Capsule Take by mouth daily. Indications: inflammation of the nose due to an allergy ??? buPROPion (WELLBUTRIN) 100 mg Tablet Take 100 mg by mouth 3 times daily. ??? sertraline (ZOLOFT) 100 mg Tablet Take 100 mg by mouth daily. ??? atorvastatin (LIPITOR) 40 mg Tablet Take 40 mg by mouth daily. ??? pantoprazole (PROTONIX) 40 mg Tablet, Delayed Release (E.C.) Take 40 mg by mouth daily. ??? oxybutynin (DITROPAN) 5 mg Tablet Take 5 mg by mouth 2 times daily. No current facility-administered medications on file prior to visit. Allergies: Patient has no known allergies. Surgical History: No prior ear surgery Family and Social History Family History: No familial HL. Social History: Lives in [place] [id number] Social History Socioeconomic History ??? Marital status: Spouse name: Not on file ??? Number of children: Not on file ??? Years of education: Not on file ??? Highest education level: Not on file Social Needs ??? Financial resource strain: Not on file ??? Food insecurity - worry: Not on file ??? Food insecurity - inability: Not on file ??? Transportation needs - medical: Not on file ??? Transportation needs - non-medical: Not on file Occupational History ??? Not on file Tobacco Use ??? Smoking status: Current Every Day Smoker Packs/day: 1.00 Years: 20.00 Pack years: 20.00 Types: Cigarettes ??? Smokeless tobacco: Never Used Substance and Sexual Activity ??? Alcohol use: Not on file ??? Drug use: Not on file ??? Sexual activity: Not on file Other Topics Concern ??? Not on file Social History Narrative ??? Not on file Physical Exam Temperature: 36.6 ??C (97.9 ??F) Heart Rate: 86 Blood Pressure: (!) 125/93 Respiratory Rate: 20 SpO2: 99 % General: Age appropriate, healthy appearing, well-groomed, independently [...] below. Hearing is grossly normal. Tuning fork lateralizes to the right ear with Air>Bone bilaterally. Nose: External nose deviates to the right side. Anterior rhinoscopy reveals moderately severe edemaof the intranasal mucosa which doesn't respond that well to topical decongestant. Leftward septal deviation in contact with the left inferior turbinate. Oral: There are no visible or palpable buccal, gingival, lingual, or palatal lesions. The floor of mouth is soft and flat. Dentition is in good repair. Oropharynx: Symmetric without tonsillar pathology. Larynx: Strong voice and cough Pulmonary: Breathing comfortably. Symmetric chest expansion without use of accessory muscles or retraction. Nasal endoscopy performed bilaterally. Unable to advance scope on left due to septal deviation. On the right side, the mucosa is quite edematous. Difficult to access middle meatus due to edema. No pus or polyps. Nasopharynx with edema of torus and E.T. Opening. No significant adenoid hypertrophy. Procedures Binocular otomicroscopy was performed: Left side: Ear canal clear Atelectatic posterior TM draped onto the incus. Shallow retraction of pars flaccida Right side: Ear canal clear Atelectatic Tympanic membrane retracted onto the incus posteriorly with hugh middle ear effusion present ASSESSMENT & RECOMMENDATIONS Joaquim Dunn is a 38 y.o. female with allergic rhinitis, deviated nasal septum, turbinate hypertrophy, possible chronic sinusitis, and ETD. 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 Right middle ear effusion. TM retracted, possibly deeply onto ossicular chain. Recommended starting with bilateral t-tubes in the OR, will use right angle pick to dissect TM off of the incus and tighten the TM with laser. Recommended allergy referral. ferry terminal supervisor plan will include management of sinus disease and ETD, and then possibility of more involved ear surgery if CHL persists. Alexis Freed MD, [facility] Otolaryngology - Head and Neck Surgery 10/30/18 8:40 AM documented in this encounter Plan of Treatment Scheduled Referrals Name Type Priority Associated Diagnoses Orde r Schedule Referral to Allergy Outpatient Referral Routine Chronic allergic rhinitis Eustachian tube disorder, bilateral Conductive hearing loss, bilateral Chronic otitis media of right ear with effusion Ordered: 10/30/2018 documented as of this encounter Procedures Procedure Name Priority Date/Time Associated Diagnosis Comments MYRINGOPLASTY, SIMPLE Routine 10/30/2018 9:19 AM EDT Chronic allergic rhinitis Eustachian Tube Disorder, Bilateral Conductive hearing loss, bilateral Chronic Otitis Media Of Right Ear With Effusion MYRINGOTOMY, INSERTION OF TUBE Routine 10/30/2018 9:19 AM EDT Chronic allergic rhinitis Eustachian tube disorder, bilateral Conductive hearing loss, bilateral Chronic otitis media of right ear with effusion documented in this encounter Visit Diagnoses Diagnosis Chronic allergic rhinitis Allergic rhinitis, cause unspecified Eustachian tube disorder, bilateral Conductive hearing loss, bilateral Chronic otitis media of right ear with effusion documented in this encounter Care Teams Investigative Writer Relationship Specialty Start Date End Date Simona Jack APRN PCP - General Family Medicine 08/25/18 03/18/19 documented as of this encounter
--- OUTSIDE RECORDS SUMMARY | 2024-09-14 17:33 | XMS_ITS | Encounter Summary ---
Author Organization [facility] [place] [address] Care Team Providers Care Production Technician Name Role Phone Concepcion Stevenson APRN Primary Care Provider [phone] Encounter Details Date Type Department Care Team (Late st Contact Info) Description 04/28/2012 Orders Only [place] [address] [facility] [place] [address] Pain (Primary Dx) Social History Tobacco Use Types Packs/Day Years Used Date Smoking Tobacco: Never Assessed Sex and Gender Information Value Date Recorded Sex Assigned at Female 04/13/2024 11:52 PM EDT Gender Identity Female 04/13/2024 11:52 PM EDT Sexual Orientation Not on file documented as of this encounter Plan of Treatment Not on file documented as of this encounter Visit Diagnoses Diagnosis Pain- Primary Generalized pain documented in this encounter Care Teams Production Technician Relationship Specialty Start Date End Date Concepcion Stevenson APRN [address] [place] [id number] PCP - General 07/11/10 08/24/18 documented as of this encounter
--- OUTSIDE RECORDS SUMMARY | 2024-09-14 17:33 | XMS_ITS | Encounter Summary ---
[place] [address] Care Team Providers Care Ratchet Setter Name Role Phone Simona Jack APRN Primary Care Provider [phone] Reason for Visit * Reason Comments Follow-up rhinitis Allergy Testing Asthma Encounter Details Date Type Department Care Team (Late st Contact Info) Description 12/10/2018 1:00 PM EDT [place] [id number] Caridad De Luna MD Chronic rhinitis; Mild intermittent asthma, uncomplicated; Gastroesophageal reflux disease, esophagitis presence not specified; Cigarette nicotine dependence with nicotine-induced disorder Social History Tobacco Use Types Packs/Day Years [...] Sign Reading Time Taken Comments Blood Pressure 137/85 12/10/2018 12:50 PM EDT Pulse 84 12/10/2018 12:50 PM EDT Temperature - - Respiratory Rate - - Oxygen Saturation 98% 12/10/2018 12:50 PM EDT Inhaled Oxygen Concentration - - Weight 72.6 kg (160 lb 0.9 oz) 12/10/2018 12:50 PM EDT Height 152.4 cm (5') 12/10/2018 12:50 PM EDT Body Mass Index 31.26 12/10/2018 12:50 PM EDT documented in this encounter Patient Instructions * Patient Instructions* Caridad De Luna MD - 12/10/2018 1:00 PM EDT 12/10/2018 Allergy skin prick tests # tests: 43 Interpretation: Appropriate histamine, saline and glycerine controls. Negative tests to: Other: DF dust mite, DP dust mite, cat, dog, cockroach, mixed feather; Grass pollens: [place], [place] blue, orchard, [place] grass, [place]ermuda grass; Tree pollens: britni, zohreh, birch, black walnut, eastern red cedar, elm, hickory, maple, oak, pine, poplar, eastern sycamore; [place] pollens: cocklebur, mugwort, pigweed, giant ragweed, sheep sorrel, plantain; Mold spores: Aspergillus mix, Alternaria, Penicillium, Cladosporium, Helminthosporium, Curvularia, Epicoccum, Fusarium, Mucor, Stemphyllium Solani, A. Fumigatus - Discontinue loratadine - Start Astelin 2 sprays in each nostril twice daily - Continue Flonase 2 sprays in each nostril once daily. Nasal corticosteroid Administration Technique: - Opposite hand to opposite nostril - Always want the spray tip to point out. ?? - Continue albuterol 2 puffs every four to six hours as needed for asthma symptoms. ?? - Continue to work on quitting to smoke. ?? - Continue pantoprazole daily. Take at least 30 minutes prior to your first meal of the day. - Schedule referral to business continuity analyst for management of your reflux - Continue to follow with Dr. Freed documented in this encounter Progress Notes * Caridad De Luna MD - 12/10/2018 1:00 PM EDT Chief Complaint Patient presents with ??? Follow-up rhinitis ??? Allergy Testing ??? Asthma HPI. Joaquim Dunn Is here today for a follow up visit. Last encounter in this section was on 12/03/2018 The patient has constant postnasal drip, all year round She has increased nasal congestion b/l. A/w postnasal drip. The loratadine helps controls congestion and postnasal drip. She has not taken loratdine for the last six days. She has not had worsening of her rhinorrhea or her loratadine. No ocular pruritus, rash, cough, wheezing. She as decreased hearing. Planned T- tube placement with Dr. Freed. History of exercise induced asthma. No nocturnal awakenings or limitations in ADL because of asthmasymptoms. No ER visits or hospitalizations since her last visit. No reflux or heartburn corrently. On PPI. In the mornings she has some heartburn and refluxx the improves with Tums chews prn. The patient is here for skin testing today. They were not compelted during her last visit because she had taken her loratadine within 48 hours of testing. Review of Systems: All other systems reviewed and negative, except as noted below. Review of Systems All other systems reviewed and are negative. Allergies, medications, past medical/ surgical history were reviewed and updated in eDH. Allergies: Patient has no known allergies. Medications: Outpatient Medications Marked as Taking for the 12/10/18 encounter (Office Visit) with Yuridia De Luna MD Medication Sig Dispense Refill ??? albuterol 90 mcg/actuation HFA Aerosol Inhaler Inhale 2 puffs into the lungs every 4 hours as needed for Wheezing, Shortness of Breath or Cough. 1 Inhaler 1 ??? fluticasone (FLONASE) 50 mcg/actuation [place], Suspension 1 spray daily. Indications: inflammation of [...] 5 mg by mouth 2 times daily. Past Medical and Social History: Past Medical History: Diagnosis Date ??? Asthma ??? GERD (gastroesophageal reflux disease) No past surgical history on file. Family history: Family History Problem Relation Age of Onset ??? Allergic Rhinitis Maternal Aunt ??? Asthma Maternal Aunt Social history: Social History Socioeconomic History ??? Marital status: Spouse name: None ??? Number of children: None ??? Years of education: None ??? Highest education level: None Occupational History ??? None Social Needs ??? Financial resource strain: None ??? Food insecurity: Worry: None Inability: None ??? Transportation needs: Medical: None Non-medical: None Tobacco Use ??? Smoking status: Current Every Day Smoker Packs/day: 1.00 Years: 20.00 Pack years: 20.00 Types: Cigarettes ??? Smokeless tobacco: Never Used ??? Tobacco comment: one pack a week Substance and Sexual Activity ??? Alcohol use: Not Currently ??? Drug use: None Comment: She smokes pot daily ??? Sexual activity: None Lifestyle ??? Physical activity: Days per week: None Minutes per session: None ??? Stress: None Relationships ??? Social connections: Talks on phone: None Gets together: None Attends restorationist service: None Active member of club or organization: None Attends meetings of clubs or organizations: None Relationship status: None ??? Intimate partner violence: Fear of current or ex partner: None Emotionally abused: None Physically abused: None Forced sexual activity: None Other Topics Concern ??? None Social History Narrative ??? None Physical Exam: Vital signs reviewed. Most Recent Vitals: 12/10/18 1250 BP: 137/85 Pulse: 84 SpO2: 98% PainSc: 0 - No pain Normal Except General: - No apparent distress Eyes: - Conjunctivae without injection; - No eyelid swelling ENT: - No erythema of the tympanic membranes - Normal external ear canals - Nl nasal mucosa, septum, and turbinates; - Oropharynx well hydrated without lesions or exudates; - Face & sinuses non-tender to palpation/percussion Neck: - Symmetrical, no masses, trachea midline; Resp: - Unlabored breathing with symmetrical and equal bilateral expansion; - CTA w/o wheezes, rales, or rhonchi; CV: - Regular rate and rhythm - No pedal swelling GI: - Abdomen soft - Bowel sounds present - No hepatosplenomegaly Lymph: - No significant cervical, supraclavicular or infraclavicular lymphadenopathy Musculoskeletal: - Nl gait and station Extremities: - No clubbing, cyanosis, or edema Skin: - No rashes Neuro/Psych: - Nl and age appropriate mood and affect - Judgement and insight intact Tests or Procedures: 12/10/2018 Allergy skin prick tests # tests: 43 Interpretation: Appropriate histamine, saline and glycerine controls. Negative tests to: Other: DF dust mite, DP dust mite, cat, dog, cockroach, mixed feather; Grass pollens: [place], [place] blue, orchard, [place] grass, [place] grass; Tree pollens: britni, zohreh, birch, black walnut, eastern red cedar, elm, hickory, maple, oak, pine, poplar, eastern sycamore; [place] pollens: cocklebur, mugwort, pigweed, giant ragweed, sheep sorrel, plantain; Mold spores: Aspergillus mix, Alternaria, Penicillium, Cladosporium, Helminthosporium, Curvularia, Epicoccum, Fusarium, Mucor, Stemphyllium Solani, A. fumigatus 12/10/18 ACT score total 25 Impression Report Plan: 1. Chronic rhinitis 2. Mild intermittent asthma, uncomplicated 3. Gastroesophageal reflux disease, esophagitis presence not specified 4. Cigarette nicotine dependence with nicotine-induced disorder - Allergy skin tests reviewed and unremarkable to common environmental allergens. - Rhinitis is likely related to non- allergic nasal irritants. Discussed silent reflux potentially contributing to non- allergic rhinitis. Also, cigarette smoke is likely contributing to her rhinitis. - Asthma clinically well controlled. -Discontinue loratadine -Start Astelin 2 sprays in each nostril twice daily - Continue Flonase 2 sprays in each nostril once daily. Reviewed appropriate administration technique to minimize risk of nasal septal perforation and nosebleeds. -Continue albuterol 2 puffs every 4-6 hours as needed for asthma -Continue to work on smoking cessation - Continue pantoprazole daily. Recommend she schedule her business continuity analyst referral for management of her reflux. -Continue to follow with Dr. Freed for management of her chronic rhinitis, nasal septal deviation and hearing disorder Medication ordered or changed during this encounter, will not show discontinued medications Medications ??? azelastine (ASTELIN) 137 mcg (0.1 %) Aerosol, [place] Si sprays by Nasal route 2 times daily. Use in each nostril as directed Dispense: 30 mL Refill: 12 Return in about 6 months (around 06/11/2019), or if symptoms worsen or fail to improve, for chronicrhinitis. eDH record was reviewed. Written instructions were reviewed and provided to the patient. No learning barriers were identified. The risks, benefits, alternatives and indications for the useof mediations prescribed or recommended during today's visit were reviewed with the patient. The patient understood and agreed with what was discussed. All questions were answered. documented in this encounter Plan of Treatment Not on file documented as of this encounter Procedures Procedure Name Priority Date/Time Associated Diagnosis Comments ALLERGY SCAN 12/10/2018 12:00 AM EDT documented in this encounter Results * SCAN DOC: ALLERGY (12/10/2018 12:00 AM EDT) Narrative 12/10/2018 12:00 AM EDT Ordered by an unspecified provider. Scanning Provider MEDIA MGR SCAN EXT O RDR/RSLT documented in this encounter Visit Diagnoses Diagnosis Chronic rhinitis Mild intermittent asthma, uncomplicated Unspecified asthma Gastroesophageal reflux disease, esophagitis presence not specified Cigarette nicotine dependence with nicotine-induced disorder Unspecified drug-induced mental disorder documented in this encounter Care Teams Ratchet Setter Relationship Specialty Start Date End Date Simona Jack APRN PCP - General Family Medicine 08/25/18 03/18/19 documented as of this encounter
--- OUTSIDE RECORDS SUMMARY | 2024-09-14 17:33 | XMS_ITS | Encounter Summary ---
Author Organization [facility] [place] [address] Care Team Providers Care Test Engine Evaluator Name Role Phone KaterinJax wilhelm Joeneil CLAUDETTE Primary Care Provider Reason for Visit * Reason Comments Follow-up 1 month post-op. Eriberto e improvement. Still gets DAVIN cracking and popping. Encounter Details Date Type Department Care Team (Late st Contact Info) Description 03/17/2019 4:40 PM EDT Office [place] [address] Alexis Freed MD [facility] [place] [address] Chronic allergic rhinitis; Eustachian tube disorder, bilateral; Conductive hearing loss, bilateral; Acquired deviated nasal septum; Hypertrophy of both inferior nasal turbinates Social History Tobacco Use Types Packs/Day Years [...] - - Weight 73.9 kg (163 lb) 03/17/2019 4:38 PM EDT Height 152.4 cm (5') 03/17/2019 4:38 PM EDT Body Mass Index 31.83 03/17/2019 4:38 PM EDT documented in this encounter Progress Notes * Alexis Freed MD - 03/17/2019 4:40 PM EDT Images from the original note were not included. [facility] Otolaryngology - Head and Neck Surgery Alexis Freed MD 03/17/19 4:54 PM [place] [id number] Office Patient Name: Joaquim Dunn Date of : 1980 PCP: Simona Jack APRN Reason for Follow Up: Chronic ETD (sniffer) Mixed HL Allergic rhinitis Deviated nasal septum OR 02/12/19 bilateral myringoplasty and t-tube placement Findings: Right sided TM retracted with mucoid effusion in middle ear. Atelectatic drum posteriorly, draped over and adherent to incus. Left sided TM in more neutral position with atelectatic area posteriorly between manubrium and incus, drum draped over and adherent to incus. Interval History: Hearing improved but still has to ask others to repeat themselves. No pain, No drainage. Using nasal steroid spray Pertinent Exam Findings: Well positioned and patent t-tubes. Pneumatized middle ear spaces. Audiogram shows closure of air-bone gap with some persistent SNHL bilaterally. Excellent WR scores External nose leans to the right in the lower 2/3. Anterior rhinoscopy shows significant leftward septal deviation, collapse of left nasal valve related to position of dorsal septum and upper lateral cartilage. Improved swelling of right nasal passage mucosa. Impression and Plan: 38-year-old female with several problems addressed today. 1. Postop visit for recent myringotomy tube placement. Audiogram shows closure of air-bone gap but some persistent sensorineural hearing loss. I would recommend amplification to treat the ongoing hearing loss. I will hold off on Eustachian tuboplasty due to concern for exacerbating possible patulous ET as she is a sniffer. 2. Nasal obstruction. This is a multifactorial problem related to the anatomy of the nose as well as inflammatory components. The latter is being well managed with topical nasal steroid. My opinion is that the anatomic obstruction is best managed by an endonasal septoplasty with inferior turbinate reduction and depending on the status of the nasal valve after straightening the septum, she may benefit from transnasal placement of a cartilage surg rn graft to reconstruct the nasal valve. We discussed the indications, goals, alternatives, and risks of surgery including bleeding, pain, infection, septal perforation, unwanted changes to the external shape of the nose, loss of smell, brain injury, CSF leak, and persistent obstruction. She is very eager to move forward with surgery. I will ask the schedulers to call her to set up a date and time for the procedure. Alexis Freed MD, [facility] Otolaryngology - Head and Neck Surgery 03/17/19 4:54 PM documented in this encounter Plan of Treatment Not on file documented as of this encounter Visit Diagnoses Diagnosis Chronic allergic rhinitis Allergic rhinitis, cause unspecified Eustachian tube disorder, bilateral Conductive hearing loss, bilateral Acquired deviated nasal septum Deviated nasal septum Hypertrophy of both inferior nasal turbinates Hypertrophy of nasal turbinates documented in this encounter Care Teams Test Engine Evaluator Relationship Specialty Start Date End Date Jax Conklin DNP [address] [place] [address] PCP - General Family Medicine 03/31/19 06/16/21 documented as of this encounter
--- OUTSIDE RECORDS SUMMARY | 2024-09-14 17:33 | XMS_ITS | Encounter Summary ---
[place] [address] Care Team Providers Care Low Raw Sugar Cutter Name Role Phone KaterinJax wilhelm CLAUDETTE Primary Care Provider Encounter Details Date Type Department Care Team (Latest Contact Info) Description 07/08/2019 3:30 PM EST Office Visit Audiology at [address] [address] Meghan Carvalho AUD [facility] [place] [address] Mixed conductive and sensorineural hearing loss, bilateral [...] as of this encounter Progress Notes * Meghan Carvalho, ELIUD - 07/08/2019 3:30 PM EST AUDIOLOGY SECTION HEARING AID SELECTION APPOINTMENT Joaquim Dunn, 39 y.o., returns today for hearing aid selection. Referred by: Dr. Freed. Occupation:Retail. Having trouble hearing customers and hearing on the her headset. Insurance coverage for hearing aids: [place] Medicaid coverage Medical h/o: PE tubes AU. Followed by Dr. Freed. Experienced hearing aid user: No Hearing difficulty in the following settings: ?? Background noise ?? TV- uses closed captioning ?? Conversations with family/friends- has two sons Phone needs: iphone only and would like to pair aids to the phone. ACTIONS TAKEN: ?? Discussed hearing aid styles, technology, and options. In consideration of auditory demands and degree/configuration of hearing loss, it was agreed that Phonak Audeo M50 RT JULIAN hearing aids would be appropriate. ?? Patient was counseled about the terms of the purchase and the thirty day return privilege. ?? Pre-fitting SAC administered (see table below). ?? Otoscopy- PE tubes AU. No active drainage or infections. PLAN: Binaural hearing aid fitting. Validation data: Pre-fitting (unaided) Post-fitting (aided) Rear Ear Measure Speech Intelligibility Index (REM SII) R= L= R= L= Speech recognition via MLV in quiet sound field (binaural) Quick Speech in noise test (QuickSIN) 87.5% Self- assessment of Communication (SAC) documented in this encounter Plan of Treatment Not on file documented as of this encounter Visit Diagnoses Diagnosis Mixed conductive and sensorineural hearing loss, bilateral Mixed hearing loss, bilateral documented in this encounter Care Teams Low Raw Sugar Cutter Relationship Specialty Start Date End Date Jax Conklin DNP [address] [place] [address] PCP - General Family Medicine 03/31/19 06/16/21 documented as of this encounter
--- OUTSIDE RECORDS SUMMARY | 2024-09-14 17:33 | XMS_ITS | Encounter Summary ---
[place] [address] Care Team Providers Care Asset Protection Greeter Name Role Phone Concepcion Stevenson APRN Primary Care Provider [phone] Encounter Details Date Type Department Care Team ([facility] Contact [facility]) Description 05/30/2012 Notes Only [place] [address] Erna Cantu, RN Social History Tobacco Use Types Packs/Day Years Used Date Smoking Tobacco: Never Assessed Sex and Gender Information Value Date Recorded Sex Assigned at Female 04/13/2024 11:52 PM EDT Gender Identity Female 04/13/2024 11:52 PM EDT Sexual Orientation Not on file documented as of this encounter Progress Notes * Erna Cantu RN - 05/30/2012 3:12 PM EDT Intrathecal pump syringe of Morphine 20 mg/Bupivacaine 20 mg/ml wasted with Ousmane Carvalho LPN, This concentration had been ordered in error. documented in this encounter Plan of Treatment Not on file documented as of this encounter Visit Diagnoses Not on filedocumented in this encounter Care Teams Asset Protection Greeter Relationship Specialty Start Date End Date Concepcion Stevenson APRN [address] [place] [id number] PCP - General 07/11/10 08/24/18 documented as of this encounter
--- OUTSIDE RECORDS SUMMARY | 2024-09-14 17:33 | XMS_ITS | Encounter Summary ---
[place] [address] Care Team Providers Care Publications Sales Representative Name Role Phone Jax Conklin DNP Primary Care Provider Encounter Details Date Type Department Care Team (Late st Contact Info) Description 06/03/2019 Telephone [place] [phone] Guerline Seymour LNA Social History Tobacco Use Types Packs/Day Years [...] encounter Miscellaneous Notes * Telephone Encounter - Guerline Seymour LNA - 06/03/2019 12:07 PM EDT Manav, Patient is scheduled to have surgery on 07/02/2019 and the packet has been mailed to the verified address on file. Follow up appointment is as follows: 1 month postop Thank you!! documented in this encounter Plan of Treatment Not on file documented as of this encounter Visit Diagnoses Not on filedocumented in this encounter Care Teams Publications Sales Representative Relationship Specialty Start Date End Date Jax Conklin DNP [address] [place] [address] PCP - General Family Medicine 03/31/19 06/16/21 documented as of this encounter
--- OUTSIDE RECORDS SUMMARY | 2024-09-14 17:33 | XMS_ITS | Encounter Summary ---
[place] [address] Care Team Providers Care Manager Of Learning Name Role Phone Simona Jack APRN Primary Care Provider [phone] Reason for Visit * Reason Onset Date Comments Medication Refill 12/18/2018 Encounter Details Date Type Department Care Team (Late st Contact Info) Description 12/18/2018 [place] [address] Caridad De Luna MD Social History Tobacco [...] on filedocumented in this encounter Care Teams Manager Of Learning Relationship Specialty Start Date End Date Simona Jack APRN PCP - General Family Medicine 08/25/18 03/18/19 documented as of this encounter
--- OUTSIDE RECORDS SUMMARY | 2024-09-14 17:33 | XMS_ITS | Encounter Summary ---
[place] [address] Care Team Providers Care Eight Arm Operator Name Role Phone Katerin Jax Joseph DNP Primary Care Provider [phone] Encounter Details Date Type Department Care Team (Late st Contact Info) Description 07/01/2019 9:00 AM EST Office [place] [id number] Kristi Peters, SCREEN AND CYCLONE REPAIRER [address] [place] [address] Lower abdominal pain; Fecal urgency; Gastroesophageal reflux disease, esophagitis presence not specified; Dyspepsia Social History Tobacco Use Types Packs/Day Years [...] Sign Reading Time Taken Comments Blood Pressure 139/86 07/01/2019 8:54 AM EST Pulse 86 07/01/2019 8:54 AM EST Temperature - - Respiratory Rate - - Oxygen Saturation - - Inhaled Oxygen Concentration - - Weight 74.6 kg (164 lb 8 oz) 07/01/2019 8:54 AM EST Height 152.4 cm (5') 07/01/2019 8:54 AM EST Body Mass Index 32.13 07/01/2019 8:54 AM EST documented in this encounter Patient Instructions * Patient Instructions* Kristi Peters APRN - 07/01/2019 9:00 AM EST 1. Stool studies at your convenience. 2. Upper endoscopy and colonoscopy with anesthesia 3. Continue pantoprazole 40mg twice daily. Please try eating a bite of a cracker or banana or something approximately 30 minutes after first dose of the day. 4. Dicyclomine 10mg four times daily as needed for abdominal pain and cramping. GOODRX coupon. 5. Follow up approximately 2-3 weeks after upper endoscopy and colonoscopy documented in this encounter Progress Notes * Kristi Peters APRN - 07/01/2019 9:00 AM EST COMMUNITY DIRECTOR: Kristi Peters APRN PCP: Jax Conklin APRN REQUESTING PROVIDER: Jax Conklin APRN REASON FOR VISIT This is a 39 y.o. female with a history significant for rhinitis, mild intermittent asthma, hearingdisorder, and post nasal drip. She was previously seen in our clinic by Ching Walker. She is a new patient to me. GI PROBLEM LIST 1. NIALL with overlapping dyspepsia 2. ABDOMINAL CRAMPING with urgency HPI COMMENTS She followed FODMAP for approximately two weeks. No improvement. Stopped. Reflux symptoms for 7.5 years. Was able to get protonix approved to twice daily for a limited amount of time. Without any PPI she has constant retrosternal pyrosis. Twice daily dosing has relieved her nocturnal and daily reflux symptoms. Denies chronic NSAID use. Dysphagia with medications. Otherwise no hangups of foods. Diminished appetite. Early satiety. Nausea. I hadn't been nauseous for a long time. Denies vomiting. Denies unintentional weight loss. Has been following GERD diet and lifestyle modifications. Recently had a thyroid ultrasound. She doesn't have the results available. Endorses that she is having nasal surgery on Saturday. This is going to be done in ENT. Bloating and gas. Abdominal pain several days per week. Abdominal cramping. Endorses stool frequency. Fecal urgency. No blood or mucus in stools. FODMAP didn't improve symptoms. [place] type 3 and 4.Denies straining and difficulty emptying. Endorses 2 vaginal deliveries. Moving her bowels multipletimes in the morning. May move her bowels 3-5 times in day. Denies fecal incontinence. Denies fecalseepage. Denies anal and rectal pain. Endorses a normal colonoscopy approximately 20 years ago. Endorses arthralgias and myalgias. Diet Reviewed: Soda/Juice/Sugary Beverages: one gingerale per day Coffee: 2 cups per day Food recall: B; doesn't eat breakfast. L; sandwich/turkey or ham. D: meat/potato/veg I eat a smallportion. Denies fast foods and processed foods. ROS Notable for the gastrointestinal symptoms as described above. CONSTITUTIONAL: Denies anorexia, fever, or unintended weight change EYES: Denies red or painful eyes ENT: Denies oral ulcers, dysphagia, odynophagia, globus. RESPIRATORY: Denies cough, shortness of breath, wheezing CV: Denies palpitations, chest pain. : Oxybutynin for incontinence. Has been taking this for years. MUSC/SKELETAL: See HPI. INTEGUMENTARY: Denies recent skin rash or lesions. NEURO: Denies neuropathy, loss of sensation, facial drooping or unilateral weakness. PSYCH: Anxiety. Takes medications/psychiatrist. ENDO: Denies frequent urination and excessive hunger or thirst. HEM/LYMPH: Denies easy bleeding or bruising. ALL/IMMUNO: Denies seasonal allergies, frequent colds. ALLERGIES No Known Allergies CURRENT MEDICATIONS Medications reviewed and reconciled in e-DH Current Outpatient Medications: ??? pantoprazole (PROTONIX) 40 mg Tablet, Delayed Release (E.C.), Take 1 tablet by mouth 2 times daily (before meals)., Disp: 60 tablet, Rfl: 11 ??? PARoxetine (PAXIL) 10 mg Tablet, 20 mg., Disp: , Rfl: 0 ??? acetaminophen (TYLENOL) 500 mg Tablet, Take 500 mg by mouth every 6 hours as needed for Pain., Disp: , Rfl: ??? Ciclesonide (OMNARIS) 50 mcg [place], Non-Aerosol, 2 sprays each nostril once daily, Disp: 12.5 g, Rfl: 3 ??? albuterol 90 mcg/actuation HFA Aerosol Inhaler, Inhale 2 puffs into the lungs every 4 hours as needed for Wheezing, Shortness of Breath or Cough., Disp: 1 Inhaler, Rfl: 1 ??? buPROPion (WELLBUTRIN) 100 mg Tablet, Take 100 mg by mouth 3 times daily., Disp: , Rfl: ??? atorvastatin (LIPITOR) 40 mg Tablet, Take 40 mg by mouth daily., Disp: , Rfl: ??? oxybutynin (DITROPAN) 5 mg Tablet, Take 5 mg by mouth 2 times daily., Disp: , Rfl: ??? polyethylene glycol-electrolytes (PEG 3350-ELECTROLYTES) 420 gram Recon Soln, Take 4,000 mLs bymouth once for 1 dose., Disp: 4000 mL, Rfl: 0 ??? dicyclomine (BENTYL) 10 mg Capsule, Take 1 capsule by mouth 4 times daily as needed., Disp: 20 capsule, Rfl: 3 MEDICAL HISTORY Past Medical History: Diagnosis Date ??? Asthma ??? GERD (gastroesophageal reflux disease) 3. HLD SURGICAL HISTORY 1. Tubal ligation Past Surgical History: Procedure Laterality Date ??? PRO CREATE EARDRUM OPENING, GEN ANESTH Bilateral 02/12/2019 MYRINGOTOMY, INSERTION OF TUBE (WRVU 2.01) performed by Alexis Freed MD at [facility] ??? PRO MYRINGOPLASTY Bilateral 02/12/2019 MYRINGOPLASTY, SIMPLE (WRVU 6.03) performed by Alexis Freed MD at [facility] SOCIAL HISTORY . 2 boys. 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 Denies alcohol use. Denies using other substances. Small amount of MJ in the evenings. FAMILY HISTORY Father, PGF- UC Cousin- celiac disease Denies family history of esophageal cancer, stomach cancer, colon cancer, pancreatic or liver issues, and IBD. RELEVANT TESTING 1. CBC (10.3 WBC), CMP (Alk Phos 113), CRP (5.9), TTG/IgA, IgA 03/31/19 normal except where otherwise noted TREATMENT TRIALS 1. Pantoprazole 40mg once daily: not beneficial in terms of reflux 2. Pantoprazole 40mg twice daily; beneficial in terms of reflux symptoms 3. FODMAP; not beneficial in terms of cramping and bowel frequency PHYSICAL EXAM: Most Recent Vitals: 07/01/19 0854 BP: 139/86 Pulse: 86 Height: 152.4 cm (5') Weight: 74.6 kg (164 lb 8 oz) Body mass index is 32.13 kg/m??. GENERAL: Healthy-appearing in no acute distress. Appears stated age. Well nourished. SKIN: No lesions, rashes, lumps, or angiomas on exposed skin. NECK: No adenopathy. No thyromegaly. HEENT: PERRL, EOMI, mucosa clear without ulceration or lesions, normal Dentition LUNGS: Clear to auscultation bilaterally COR: Regular, normal S1 and S2 without murmurs. ABD: Tympanic. Tenderness deep palpation RLQ and LLQ. No rebound or guarding. Normal active BS. Soft, non-distended. No bruits. No organomegaly. EXT: No cyanosis, clubbing, or edema. NEURO: Alert and oriented to person, place, time, and situation. Cranial nerves II-XII intact. PSYCH: Mood appropriate. Good eye contact. Normal interaction. Answers all questions appropriately. LABS: Lab Results Component Value Date WBC 10.4 (H) 03/31/2019 HGB 14.7 03/31/2019 HCT 42.0 03/31/2019 MCV 85.2 03/31/2019 PLATELET 261 03/31/2019 Lab Results Component Value Date NA 139 03/31/2019 K 4.1 03/31/2019 CL 104 03/31/2019 CO2 27 03/31/2019 BUN 7 (L) 03/31/2019 CREATININE 0.80 03/31/2019 GLUCOSE 97 03/31/2019 CALCIUM 8.9 03/31/2019 Lab Results Component Value Date ALT 16 03/31/2019 AST 13 03/31/2019 ALKPHOS 113 (H) 03/31/2019 BILITOT 0.4 03/31/2019 ALBUMIN 4.2 03/31/2019 PROT 7.4 03/31/2019 No results found for: LIPASE Lab Results Component Value Date BILITOT 0.4 03/31/2019 ASSESSMENT This is a very nice 39 year old female with a history significant for rhinitis, asthma, HLD, nicotine dependence, anxiety, 2 vaginal deliveries, and family hx of UC. Previous workup includes negativeserologies including a TTG/IgA, IgA. Since her last visit to our clinic she has tried the FODMAP without relief of symptoms. Has also been taking protonix twice daily with full relief of reflux symptoms. This has only been approved for BID dosing for a short course. Recommend EGD given chronicity of symptoms. She will require MAC for anxiety. Will try prescribing another course of BID PPI. Will check H. Pylori antigen, although this could potentially be a false negative. She does not take NSAIDs. She does smoke. Has been following GERD diet and lifestyle modifications. In terms of lower GI symptoms- she does have a first degree relative with UC. Recommend colonoscopy. Recommend stool studies. Will also try a short course of dicyclomine. Has previously tried FODMAP without relief. Do suspect pelvic floor dysfunction/dyssynergia. Consider utility of HBT. Ddx: GERD, Bennett's esophagus, NERD, gastritis/gastropathy, IBD, IBS PLAN 1. Fecal calprotectin, stool culture, giardia/crypto, H. Pylori antigen. 2. Upper endoscopy and colonoscopy with anesthesia 3. Continue pantoprazole 40mg twice daily. If not approved by insurance will submit PA indicating EGD has been scheduled. 4. Dicyclomine 10mg four times daily as needed for abdominal pain and cramping. GOODRX coupon. 5. Follow up approximately 2-3 weeks after upper endoscopy and colonoscopy I have provided her with my contact information. She has been encouraged to contact me with any questions or concerns. TIME SPENT WITH PATIENT 42 minutes of this 45 minute visit were spent in [id number] discussion and counseling the patientas detailed per above. Signed, Kristi Peters APRN 07/01/2019 9:45 AM Section of Gastroenterology & Hepatology [facility] documented in this encounter Plan of Treatment Not on file documented as of this encounter Visit Diagnoses Diagnosis Lower abdominal pain Abdominal pain, other specified site Fecal urgency Gastroesophageal reflux disease, esophagitis presence not specified Dyspepsia Dyspepsia and other specified disorders of function of stomach documented in this encounter Care Teams Eight Arm Operator Relationship Specialty Start Date End Date Jax Conklin DNP [address] [facility] [address] [place] [address] PCP - General Family Medicine 03/31/19 06/16/21 documented as of this encounter
--- OUTSIDE RECORDS SUMMARY | 2024-09-14 17:33 | XMS_ITS | Encounter Summary ---
[place] [address] Care Team Providers Care Production Material Coordinator Name Role Phone Simona Jack APRN Primary Care Provider [phone] Encounter Details Date Type Department Care Team (Late st Contact Info) Description 01/15/2019 [place] [address] Lilli Hess, RN Social History Tobacco Use Types Packs/Day [...] as of this encounter Progress Notes * Lilli Hess RN - 01/15/2019 11:47 AM EDT PA submitted to CoverMyMeds for mometasone furoate 50mcg spray. Awaiting response. * Carmen Schultz LPN - 01/15/2019 11:47 AM EDT PA denied by [place] Medicaid. Will pend new script for Omnaris per MD request. documented in this encounter Plan of Treatment Not on file documented as of this encounter Visit Diagnoses Not on filedocumented in this encounter Care Teams Production Material Coordinator Relationship Specialty Start Date End Date Simona Jack APRN PCP - General Family Medicine 08/25/18 03/18/19 documented as of this encounter
--- OUTSIDE RECORDS SUMMARY | 2024-09-14 17:33 | XMS_ITS | Encounter Summary ---
[place] [address] Care Team Providers Care Shotgun Shell Assembly Machine Operator Name Role Phone Simona Jack APRN Primary Care Provider Encounter Details Date Type Department Care Team (Late st Contact Info) Description 12/17/2018 [place] [address] Carmen Taveras LPN Social History Tobacco Use Types Packs/Day Years [...] as of this encounter Progress Notes * Carmen Schultz LPN - 12/17/2018 1:32 PM EDT Per [place] Medicaid, patient must try and fail 2 of the following: -Flonase CURRENTLY ON -Omnaris -Zetonna -Nasonex -Nasacort, etc... New prescription needs to be sent to pharmacy in place of the Azelastine 0.1% spray. documented in this encounter Plan of Treatment Not on file documented as of this encounter Visit Diagnoses Not on filedocumented in this encounter Care Teams Shotgun Shell Assembly Machine Operator Relationship Specialty Start Date End Date Simona Jack APRN PCP - General Family Medicine 08/25/18 03/18/19 documented as of this encounter
--- OUTSIDE RECORDS SUMMARY | 2024-09-14 17:33 | XMS_ITS | Encounter Summary ---
[facility] [place] [address] Care Team Providers Care Sewing Machine Maintenance Mechanic Name Role Phone Katerin Jax Joseph [facility] Primary Care Provider Reason for Visit * Auth/Cert Specialty Diagnoses / Procedures Referred By Contkit t Referred To Contact Diagnoses deviated nasal septum Procedures PRO REPAIR OF NASAL SEPTUM PRO EXCISION TURBINATE, SUBMUCOUS PRO UNLISTED PROCEDURE NOSE SEPTOPLASTY OR SMR, W/ OR W/O CARTILAGE SCORING, CONTOURING OR REPLACEMENT W/ GRAFT (WRVU 7.01) SMR INFERIOR TURBINATE, PARTIAL OR COMPLETE-DAVIN (WRVU 3.57) NASAL VALVE SUSPENSION (WRVU 7.55) Referral ID Status Reason Start Date Expiration Date Visits Re quested Visits Authorized [id number] 1 1 Encounter Details Date Type Department Care Team (Late st Contact Info) Description 07/03/2019 10:56 AM EST Anesthesia Event [place] [address] Alexis Dial MD [facility] [place] [address] Karlo Hsieh MD [facility] [place] [address] Anesthesia Record Procedure Summary Procedure Name Responsible Anesthesiologist Anesthesia Start Time Anesthesia Stop Time SEPTOPLASTY OR SMR, W/ OR W/O CARTILAGE SCORING, CONTOURING OR REPLACEMENT W/ GRAFT [facility] (Midline: Nose) Alexis Dial MD 07/03/19 1056 07/03/19 1248 Events Date Time Event Comment 07/03/2019 1039 1056 AN Verify 1056 Start 1100 An Start Data 1105 An Induction 1108 An Intubation 1110 Anesthesia Ready 1234 Procedure Stop 1240 Extubation/LMA Out 1241 an stop data 1244 Recovery or ICU Handoff Azalia ent care was transferred to the destination unit staff after review of the patient's medical history, current anesthetic/surgical status and plan, according to the Provider Handoff Checklist. 1248 Stop Meds Name Total Midazolam 2 mg fentaNYL 100 mcg IV Lidocaine 100 mg Propofol 214 mg Rocuronium 50 mg PHENYLephrine 240 mcg Ondansetron 4 mg Dexamethasone 8 mg Neostigmine 2 mg Glycopyrrolate 0.4 mg ceFAZolin 2 g PHENYLephrine INF 1,320 mcg lactated ringers infusion 800 mL * Agents Name O2 Air N2O Sevoflurane (et) * Blood No blood administrations on file. Lines, Drains, and Airways Type Details Placement Removal Incision 02/12/19; 0939; ear (tube placement and laser,); 04/16/22 (LDA cleanup utility RA#[id number]); 1715 (LDA cleanup utility RA#[id number]) 02/12/19 0939 by Pau French RN 04/16/22 1715 by Eulalia Call Incision 02/12/19; 1000; ear (tube placement and laser,); 04/16/22 (LDA cleanup utility RA#[id number]); 1715 (LDA cleanup utility RA#[id number]) 02/12/19 1000 by Pau French RN 04/16/22 1715 by Eulalia Call (RETIRED) Peripheral IV Line - Single Lumen 07/03/19; 0939; cephalic vein (lateral side of arm), right; [id number] catheter system; 20 gauge; distraction, tolerated well; 07/03/19; 1600 07/03/19 0939 by Riana Colon RN 07/03/19 1600 by Mary Iniguez RN ETT Mask Ventilation: Adjunct (2); ETT Type: Cuffed, Oral, FRANCISCO; ETT Size: 7 mm; Mac Blade: 3; Notes: Asleep, Pre-O2, Cricoid Pressure, Stylette; Attempts: 1; Laryngoscopy Grade: 1; ETT Placement Verified By: Auscultation, Capnometry, Visual; Inserted by: Rodrigue FISH; Removal Date: 07/03/19; Removal Time: 1240 07/03/19 1108 by Karlo Hsieh MD 07/03/19 1240 by Karlo Hsieh MD Incision 07/03/19; 1132; nose ; septioplasty; 04/16/22 (LDA cleanup utility RA#[id number]); 171 (LDA cleanup utility RA#[id number]) 07/03/19 1132 by Kerry Ball RN 04/16/22 1715 by Eulalia Call documented [...] OR Notes * Anesthesia Postprocedure Evaluation - Karlo Hsieh - 07/03/2019 12:51 PM EST Department of Anesthesiology Post-procedure Note Patient: Joaquim Dunn Procedure Summary Date: 07/03/19 Room / Location: [facility] MA[facility] OR Anesthesia Start: 1056 Anesthesia Stop: 1248 Procedures: SEPTOPLASTY OR SMR, W/ OR W/O CARTILAGE SCORING, CONTOURING OR REPLACEMENT W/ GRAFT (WRVU 7.01) (Midline Nose) SMR INFERIOR TURBINATE, PARTIAL OR COMPLETE-DAVIN (WRVU 3.57) (Bilateral Nose) NASAL VALVE SUSPENSION (WRVU 7.55) (Left ) Diagnosis: Acquired deviated nasal septum Hypertrophy of both inferior nasal turbinates (deviated nasal septum) Surgeon: Alexis Freed MD Responsible Provider: Alexis Dial MD Anesthesia Type: general ASA Status: 2 All Anesthesia Providers: Anesthesiologist: Alexis Dial MD Environmental Engineering Technician: Karlo Hsieh MD Vitals Value Taken Time BP Temp Pulse Resp SpO2 Pain Level Patient Location: PACU/[facility] Level of Consciousness: Conscious but Sleepy Pain Management: Satisfactory Analgesia PONV: None Cardiovascular Status: At Baseline Respiratory Status: Supplemental O2 (NC or FM) and Stable Respiratory Status Postoperative Fluid Status: Intravascular EUvolemia Possible Anesthetic Complications: NONE apparent at time of evaluation Final Primary Anesthesia Type: General (The anesthetic type performed was the same as planned.) Comments: Karlo Hsieh MD * Anesthesia Preprocedure Evaluation - Alexis Dial MD - 07/02/2019 4:08 PM EST Pre-Anesthesia Evaluation for: Joaquim Dunn a 39 y.o. female. Procedure(s): SEPTOPLASTY OR SMR, W/ OR W/O CARTILAGE SCORING, CONTOURING OR REPLACEMENT W/ GRAFT (WRVU 7.01) SMR INFERIOR TURBINATE, PARTIAL OR COMPLETE-DAVIN (WRVU 3.57) NASAL VALVE SUSPENSION (WRVU 7.55) Patient Active Problem List Diagnosis ??? Rhinitis, nonallergic, chronic ??? Mild intermittent asthma, uncomplicated ??? Gastroesophageal reflux disease ??? Elevated blood pressure reading ??? Cigarette nicotine dependence with nicotine-induced disorder Past Medical History: Diagnosis Date ??? Asthma ??? GERD (gastroesophageal reflux disease) Past Surgical History: Procedure Laterality Date ??? PRO CREATE EARDRUM OPENING, GEN ANESTH Bilateral 02/12/2019 MYRINGOTOMY, INSERTION OF TUBE (WRVU 2.01) performed by Alexis rFeed MD at [facility] ??? PRO MYRINGOPLASTY Bilateral 02/12/2019 MYRINGOPLASTY, SIMPLE (WRVU 6.03) performed by Alexis Freed MD at [facility] Social History Tobacco Use ??? Smoking status: Current Every Day Smoker Packs/day: 0.25 Years: 20.00 Pack years: 5.00 Types: Cigarettes ??? Smokeless tobacco: Never Used [...] file to calculate BMI. Airway Assessment: Mallampati: III TM distance: >3 FB Neck ROM: full Cardiovascular Assessment: Pulmonary Assessment: Dental Assessment: - normal exam Misc Assessment: IV access: Peripheral line Anesthesia Plan: ASA 2 general, with a(n) intravenous induction Joaquim Dunn is a 39 YO, 75 kg female with deviated septum, chronic rhinitis and inferior nasal turbinate hypertrophy presenting for endonasal septoplasty with inferior turbinate reduction. PMH otherwise significant for mild intermittent asthma, GERD, current smoker (5PY, 1pack/wk), HLD. No history of anesthetic complications. Tolerated GA w/ unique 4 LMA. Plan: GETA, standard monitors, adequate IV access. Region - Other Informed Consent: Anesthetic plan and risks discussed with patient and mother. Plan discussed with resident and attending. PAT Clinic Note documented in this encounter Plan of Treatment Not on file documented as of this encounter Visit Diagnoses Not on filedocumented in this encounter Administered Medications Inactive Administered Medications - up to 3 most recent administrations Medication Order MAR Action Action Date Dose Rate Site ceFAZolin (ANCEF) 1g in dextrose 5% 50mL PRN, Starting on Sat07/03/19 at 1119, Until Sat07/03/19 at 1249, Administer over 30 Minutes, Anesthesia Intra-op Given 07/03/2019 11:19 AM EST 2 g dexamethasone (DECADRON) injection PRN, Starting on Sat07/03/19 at 1105, Until Sat07/03/19 at 1249, Anesthesia Intra-op, Routine Given 07/03/2019 11:05 AM EST 8 mg fentaNYL 50 mcg/mL multi-dose injection PRN, Starting on Sat07/03/19 at 1105, Until Sat07/03/19 at 1249, Anesthesia Intra-op, Routine Given 07/03/2019 12:29 PM EST 25 mcg Given 07/03/2019 12:19 PM EST 25 mcg Given 07/03/2019 11:05 AM EST 50 mcg glycopyrrolate (ROBINUL) multi-dose injection PRN, Starting on Sat07/03/19 at 1232, Until Sat07/03/19 at 1249, Anesthesia Intra-op, Routine Given 07/03/2019 12:32 PM EST 0.4 mg lactated ringers infusion 1,000 mL, at 100 mL/hr, Intravenous, CONTINUOUS, Starting on Sat07/03/19 at 0945, Until Sat07/03/19 at 1659, Day of Surgery (Day of Procedure) New Bag 07/03/2019 10:56 AM EST New Bag 07/03/2019 9:40 AM EST 1,000 mLs 100 mL/hr lidocaine (PF) (XYLOCAINE) 100 mg/5 mL (2 %) injection PRN, Starting on Sat07/03/19 at 1105, Until Sat07/03/19 at 1249, Anesthesia Intra-op, Routine Given 07/03/2019 11:05 AM EST 100 mg midazolam (PF) (VERSED) multi-dose injection PRN, Starting on Sat07/03/19 at 1056, Until Sat07/03/19 at 1249, Anesthesia Intra-op, Routine Given 07/03/2019 11:00 AM EST 1 mg Given 07/03/2019 10:56 AM EST 1 mg neostigmine (BLOXIVERZ) injection PRN, Starting on Sat07/03/19 at 1232, Until Sat07/03/19 at 1249, Anesthesia Intra-op, Routine Given 07/03/2019 12:32 PM EST 2 mg ondansetron (ZOFRAN) injection PRN, Starting on Sat07/03/19 at 1204, Until Sat07/03/19 at 1249, Anesthesia Intra-op, Routine Given 07/03/2019 12:04 PM EST 4 mg PHENYLephrine (TOMASA-SYNEPHRINE) 20 mg in sodium chloride 250 mL (standard ADULT & Pedi greater than 20kg) infusion CONTINUOUS PRN, Starting on Sat07/03/19 at 1138, Until Sat07/03/19 at 1249, Anesthesia Intra-op, Routine Rate/Dose Change 07/03/2019 12:04 PM EST 40 mcg/min 30 mL/hr New Bag 07/03/2019 11:40 AM EST 20 mcg/min 15 mL/hr PHENYLephrine in NS (PF) (TOMASA-SYNEPHRINE) 0.8 mg/10 mL (80 mcg/mL) multi-dose injection Syrg PRN, Starting on Sat07/03/19 at 1115, Until Sat07/03/19 at 1249, Anesthesia Intra-op, Routine Given 07/03/2019 12:04 PM EST 80 mcg Given 07/03/2019 11:30 AM EST 80 mcg Given 07/03/2019 11:15 AM EST 80 mcg propofol (DIPRIVAN) 10 mg/mL bolus injection (Anesthesia) PRN, Starting on Sat07/03/19 at 1105, Until Sat07/03/19 at 1249, Anesthesia Intra-op Given 07/03/2019 11:09 AM EST 3 0 mg Given 07/03/2019 11:07 AM EST 4 mg Given 07/03/2019 11:05 AM EST 180 mg rocuronium (ZEMURON) multi-dose injection PRN, Starting on Sat07/03/19 at 1106, Until Sat07/03/19 at 1249, Anesthesia Intra-op, Routine Given 07/03/2019 11:06 AM EST 50 mg documented in this encounter Care Teams Sewing Machine Maintenance Mechanic Relationship Specialty Start Date End Date Jax Conklin DNP [address] [place] [address] PCP - General Family Medicine 03/31/19 06/16/21 documented as of this encounter
--- OUTSIDE RECORDS SUMMARY | 2024-09-14 17:33 | XMS_ITS | Encounter Summary ---
Author Organization [facility] Address [facility] [place] [address] Care Team Providers Care Black Belt Name Role Phone Katerin Jax Diazneil [facility] Primary Care Provider [phone] Reason for Visit * Auth/Cert Specialty Diagnoses [...] Expiration Date Visits Re quested Visits Authorized [id number] 1 1 Encounter Details Date Type Department Care Team (Latest Contact Info) Description 07/03/2019 8:36 AM EST - 07/03/2019 4:59 PM [facility] Hospital Encounter [place] [phone] Alexis Freed MD [facility] [place] [address] Discharge Disposition: Home Social History Tobacco Use [...] EST Inhaled Oxygen Concentration - - Weight 74.4 kg (164 lb) 07/03/2019 9:17 AM EST Height 152.4 cm (5') 07/03/2019 9:17 AM EST Body Mass Index 32.03 07/03/2019 9:17 AM EST documented in this encounter Discharge Instructions * Patient Instructions* Lindy Hou MD - 07/03/2019 12:33 PM EST Instructions after Nasal Surgery Alexis Freed MD Otolaryngology-Head and Neck Surgery Restrictions for the first 7 days - help speed your own healing: ??? No smoking ??? Do not blow your nose, sniffing back is ok ??? No heavy lifting ??? No straining Things to pick pack worker from the pharmacy: Mupirocin ointment (or other antibiotic ointment). Tylenol and Motrin Saline sinus irrigation bottle and salt packets Saline mist to keep the nose moist Afrin or other nasal decongestant spray. This is an emergency item and should not be used unless there is severe bleeding from the nose as described below. DO NOT use this unless it is severely bleeding because it can lead to nasal congestion if used routinely. What to expect the first week after surgery: ??? The following are normal, temporary experiences: moderate pain in and around the nose small amounts of blood coming from the nose numbness of the front teeth How to take care of yourself after surgery: ??? Take pain medication if you need it. Tylenol and Motrin taken together is adequate for most patients after this type of surgery. If you need additional pain medication, please call the nurse yancy. ??? Apply antibiotic ointment in the front of the nose several times daily to keep the front of thenose moist and prevent infection. ??? Use generous amounts of saline nasal spray 4-5 times per day. ??? If you have bleeding from your nose (bright red dripping blood): ??? Irrigate the clot out with saline (this makes a mess, so best to do in the bath tub or over a large sink. Then spray a large amount of nasal decongestant (phenylephrine or oxymetolazine) into theside of the nose from which the bleeding started. Hold pressure at the soft part of the nose for five minutes. Repeat up to 3 times. If still bleeding, call for advice or go to your nearest emergency department. ??? Drink lots of fluids to avoid getting dehydrated. Common symptoms of dehydration include feeling bad, weakness, lightheadedness, nausea, dark yellow urine. ??? Restart aspirin, coumadin, and other blood thinning medicines two days after your surgery (if you were asked to stop them before surgery) Problems to watch for that are specific to this surgery: ??? large amounts of bleeding from your nose ??? increasing pain, foul drainage from the nose, redness ??? fevers The ENT clinic is available at [phone] -For urgent issues during evenings and weekends the ENT resident community recreation programmer can be reached through [facility] button tufting machine operator at [phone] Future Appointments Date Time Provider Department Center 07/08/2019 3:30 PM Meghan Carvalho AUD [facility] AUDIO [facility] 08/04/2019 10:00 AM Alexis Freed MD [facility] 08/04/2019 1:00 PM Alexis Freed MD [facility] IVET [facility] 08/06/2019 9:30 AM Meghan Carvalho AUD [facility] 08/20/2019 1:00 PM Meghan Carvalho AUD [facility] AUDIO [facility] 10/28/2019 8:00 AM Kristi Peters APRN [facility] documented in this encounter Medications at Time of Discharge Medication Sig Dispensed Refills Start Date End Date oxyCODONE (ROXICODONE) 5 mg Tablet Take 1 tablet by mouth every 4 hours as needed for Pain. Taper this medication down in the upcoming days. Do not take if not needed. 10 tablet 07/03/2019 mupirocin (BACTROBAN) 2 % Ointment 0.5 g by Nasal route 2 times daily. Follow discharge instructions. 10 g 3 07/03/2019 dicyclomine (BENTYL) 10 mg Capsule Take 1 capsule by mouth 4 times daily as needed. 20 capsule 3 07/01/2019 pantoprazole (PROTONIX) 40 mg Tablet, Delayed Release (E.C.)Indications:James roesophageal reflux disease, esophagitis presence not specified Take 1 tablet by mouth 2 times daily (before meals). 60 tablet 11 07/01/2019 PARoxetine (PAXIL) 10 mg Tablet 20 mg. 0 02/16/2019 acetaminophen (TYLENOL) 500 mg Tablet Take 500 mg by mouth every 6 hours as needed for Pain. Ciclesonide (OMNARIS) 50 mcg [place], Non-Aerosol 2 sprays each nostril once daily [...] 5 mg by mouth 2 times daily. amoxicillin (AMOXIL) 875 mg Tablet Take 1 tablet by mouth 2 times daily for 7 days. 14 tablet 07/03/2019 07/10/2019 documented as of this encounter Progress Notes * Mary Iniguez RN - 07/03/2019 2:03 PM EST Pt reports a frontal headache and continued sore throat. I have been encouraging her to rehydrate with water and apple juice. She has also eaten a pudding in order to take PO pain medication. Pt is now sleeping and appears calm and relaxed, with unlabored breathing. Mother is at the bedside. documented in this encounter H&P Notes * Lindy Hou MD - 07/03/2019 10:28 AM EST OTOLARYNGOLOGY - HEAD & NECK SURGERY INTERVAL H&P NOTE Name: Joaquim Dunn Age/Sex: 39 y.o. female Attending: Alexis Freed MD Hospital Day: 1 Day of Surgery Interval History Please see pre-operative H&P in scanned documents 06/2019 In brief, Joaquim Dunn presents today for septoplasty, turbinate reduction There have been no changes to her history. Physical Exam Most Recent Vitals: 07/03/19 0917 BP: 131/79 Pulse: 93 Resp: 16 Temp: 37 ??C (98.6 ??F) SpO2: 97% Gen: No acute distress, alert and answers questions appropriately CV: Regular rate Pulm: Unlabored breathing Abd: Abdomen soft and non-tender Ext: No peripheral edema ASSESSMENT & PLAN Plan for septo/turb/nasal valve nurse head graft Consent signed, dated, placed in chart Ok to proceed with scheduled operation. Lindy Hou MD, PGY3 07/03/19 10:28 AM Pager: [phone] documented in this encounter Miscellaneous Notes * Op Note - Alexis Freed MD - 07/03/2019 4:59 PM EST [facility] Operative Note Patient Name: Joaquim Dunn : [id number] MR#: [id number] Case Date: 07/03/2019 Surgeon: Surgeon(s) and Role: * Alexis Freed MD - Primary * Lindy Hou MD - Resident Preoperative diagnosis: deviated nasal septum Postoperative diagnosis: deviated nasal septum Procedure(s) (LRB): SEPTOPLASTY OR SMR, W/ OR W/O CARTILAGE SCORING, CONTOURING OR REPLACEMENT W/ GRAFT (WRVU 7.01) (Midline) SMR INFERIOR TURBINATE, PARTIAL OR COMPLETE-DAVIN (WRVU 3.57) (Bilateral) NASAL VALVE SUSPENSION (WRVU 7.55) (Left) Findings: Leftward septal deviation, particularly posteriorly with large posterior septal spur blocking rightnasal passage. Right compensatory turbinate hypertrophy Left nasal valve collapse repaired with endonasal placement of nurse head graft ?? Anesthesia: General Estimated Blood Loss: * No values recorded between 07/03/2019 11:32 AM and 07/03/2019 12:35 PM * Specimens removed during surgery: * No orders in the log * Drains: * No LDAs found * Surgical Closure: Primary Closure - skin incision is completely closed without any wires, jose eduardo, drains or other devices Disposition: awakened from anesthesia, extubated and taken to the recovery room in a stable condition, having suffered no apparent untoward event. Condition: doing well without problems (Please see the Surgical Encounter Summary for any Implant and Specimen details pertinent to this patient.) HPI/Surgical Indications: 39-year-old female with a history of nasal obstruction secondary to rhinitis and anatomic problems.After failing a trial of adequate medical therapy the decision was made to proceed with the above surgeries. Informed consent was obtained prior to proceeding to the operating room. Procedure Description: Patient was brought into the operating room and placed in the table in supine position general endotracheal anesthesia was induced by the anesthesiology team and a timeout was performed. The table was rotated 180 degrees, the eyes were taped. Sterile towels were draped around the nose. The nasal hairs were trimmed and the nose was topically decongested and injected with 1% lidocaine with epinephrine in the submucosal space. A left-sided hemitransfixion incision was created with the Bovie at a setting of 10 and a submucoperichondrial flap was raised and extended to a submucoperiosteal space posteriorly. Elevation proceeded posteriorly over the dramatic septal spur to the left side and the posterior septum. A 1.5 cm strut of intact caudal septal cartilage was preserved and then a cartilaginous incision was created behind this. Then a submucoperichondrial and submucoperiosteal flap was raised on the right side through the intercartilaginous incision. After elevating the contralateral side a swivel knife was used toresect the posterior portion of quadrangular cartilage preserving a 1.5 cm strut intact dorsal septal cartilage. Then deviated portions of ethmoid and vomer bone were resected including the large leftward bony septal spur posteriorly. This produced a significant opening of the nasal passageway on the left side. There was a tear in the mucosa over the septal spur in the extreme posterior septum, but there was not a contralateral perforation. Given the rightward deviation of the nose at baseline, there continued to be some collapse of the left nasal valve related to the position of the upper lateral cartilage. I therefore created a nurse head graft using some harvested quadrangular cartilage. This was approximately the caliber of a matchstick. I wedged this up in a submucosal plane along the dorsal septum between the extreme dorsal septum and the upper lateral cartilage to produce lateralization of the upper lateral cartilage. I then fixated this into position using transseptal 4-0 plain gut sutures. This produced a nice lateralization of the upper lateral cartilage with no significant external cosmetic impact. Attention was then turned to the inferior turbinate reduction portion of the case. The left inferior turbinate was injected with 1% lidocaine with epinephrine, and a stab incision was created in the anterior head of the inferior turbinate. A 2 mm turbinate shaver blade was introduced into the submuc osal space and used to debulk the submucosal stroma. After debulking the submucosal stroma, the turbinate was bluntly outfractured with a Chualar elevator. The same steps were then performed on the contralateral side with the same findings. The hemitransfixion incision was closed with 4-0 chromic, and then the septum was quilted using 4-0plain gut on a Mayank needle. The patient tolerated the procedure well and was awakened from anesthesia and extubated and transferred to recovery in stable condition postoperatively. Infection Bundle used? N/A Attestation: Case Date: 07/03/2019 I performed this procedure without the involvement of a resident. Alexis Freed MD 07/03/2019 * Brief Op Note - Alexis Freed MD - 07/03/2019 1:48 PM EST Brief Operative Note Patient Name: Joaquim Dunn : [id number] MR#: [id number] Case Date: 07/03/2019 Surgeon: Surgeon(s) and Role: * Alexis Freed MD - Primary * Lindy Hou MD - Resident Preoperative diagnosis: deviated nasal septum Postoperative diagnosis: deviated nasal septum Procedure(s) (LRB): SEPTOPLASTY OR SMR, W/ OR W/O CARTILAGE SCORING, CONTOURING OR REPLACEMENT W/ GRAFT (WRVU 7.01) (Midline) SMR INFERIOR TURBINATE, PARTIAL OR COMPLETE-DAVIN (WRVU 3.57) (Bilateral) NASAL VALVE SUSPENSION (WRVU 7.55) (Left) Anesthesia: General Findings: Leftward septal deviation, particularly posteriorly with large posterior septal spur blocking rightnasal passage. Right compensatory turbinate hypertrophy Left nasal valve collapse repaired with endonasal placement of nurse head graft Complications: none Intake: Intraprocedure Crystalloid Total lactated ringers infusion Volume (mL) 800 mL Transfusion No data found in the last 1 encounters. Output: Estimated Blood Loss: * No values recorded between 07/03/2019 11:32 AM and 07/03/2019 12:35 PM * Urine Output:: (no urine output recorded) Other Output: (no other output recorded) Drains: none Specimens removed during surgery: * No orders in the log * Disposition: awakened from anesthesia, extubated and taken to the recovery room in a stable condition, having suffered no apparent untoward event. Condition: doing well without problems Attestation: Case Date: 07/03/2019 I was present and I participated during the entire procedure (does not need to include opening and closing). Resident observed only. (Please see the Surgical Encounter Summary for any Implant and Specimen details pertinent to this patient.) documented in this encounter Plan of Treatment Not on file documented as of this encounter Procedures Procedure Name Priority Date/Time Associated Diagnosis Comments Unlisted Procedure Nose (68672) 07/03/2019 11:00 AM EST Acquired deviated nasal septum Hypertrophy of both inferior nasal turbinates Submucous Resction Inferior Turbinate Partial/Complete (80273) 07/03/2019 11:00 AM EST Acquired deviated nasal septum Hypertrophy of both inferior nasal turbinates Septoplasty/Submucous Resection W/Wo Cartilage Graft (68689) 07/03/2019 11:00 AM EST Acquired deviated nasal septum Hypertrophy of both inferior nasal turbinates documented in this encounter Visit Diagnoses Not on filedocumented in this encounter Administered Medications Inactive Administered Medications - up to 3 most recent administrations Medication Order MAR Action Action Date Dose Rate Site acetaminophen (TYLENOL) tablet 1,000 mg 1,000 mg, Oral, ONCE, 1 dose, On Sat07/03/19 at 0945, Administer with SIP of H2O only., Day of Surgery (Day of Procedure), Routine Given 07/03/2019 9:31 AM EST 1,000 mg gabapentin (NEURONTIN) capsule 300 mg 300 mg, Oral, ONCE, 1 dose, On Sat07/03/19 at 0945, Administer with SIP of H2O only., Day of Surgery (Day of Procedure), Routine Given 07/03/2019 9:31 AM EST 300 mg HYDROmorphone (DILAUDID) injection 0.2-0.4 mg 0.2-0.4 mg, Intravenous, EVERY 5 MIN PRN, Starting on Sat07/03/19 at 1252, Until Sat07/03/19 at 1659, Pain, Give 0.2 mg every 5 minutes PRN for mild to moderate pain (1-5) Give 0.4 mg every 5 minutes PRN for moderate to severe pain (6-10). Hold for respiratory rate less than 10 per minute. Maximum dose 4 mg over one hour. If multiple pain medications are ordered, start with hydromorphone or morphine and use fentanyl for breakthrough pain., PACU Recovery, Routine Given 07/03/2019 1:24 PM EST 0.4 mg Given 07/03/2019 12:58 PM EST 0.4 mg lactated ringers infusion 1,000 mL, at 100 mL/hr, Intravenous, CONTINUOUS, Starting on Sat07/03/19 at 0945, Until Sat07/03/19 at 1659, Day of Surgery (Day of Procedure) New Bag 07/03/2019 10:56 AM EST New Bag 07/03/2019 9:40 AM EST 1,000 mLs 100 mL/hr oxyCODONE (ROXICODONE) immediate release tablet 5 mg 5 mg, Oral, EVERY 4 HOURS PRN, 1 dose, Starting on Sat07/03/19 at 1252, Until Sat07/03/19 at 1352, Pain, PACU Recovery, Routine Given 07/03/2019 1:52 PM EST 5 mg promethazine (PHENERGAN) injection 12.5 mg 12.5 mg, Intravenous, EVERY 30 MIN PRN, Nausea, Starting on Sat07/03/19 at 1252, 2 doses, Until Sat07/03/19 at 1659, VESICANT - Dilute with a minimum of 10 mL saline. LARGE VEIN only. Inject over 10 minutes into the farthest port of a running IV infusion. Remain with the patient and STOP infusion immediately if patient reports burning. Avoid extravasation. If multiple antiemetics are ordered, use ondansetron first and if ineffective use prochlorperazine second and if ineffective use promethazine., PACU Recovery Given 07/03/2019 1:52 PM EST 6.25 mg documented in this encounter Active and Recently Administered Medications Times are shown in EST. Scheduled Medication Order 07/01/2019 07/02/2019 07/03/2019 acetaminophen (TYLENOL) tablet 1,000 mg (COMPLETED) 1,000 mg, Oral, ONCE, 1 dose, On Sat07/03/19 at 0945, Administer with SIP of H2O only., Day of Surgery (Day of Procedure), Routine 09 (Given - Provid er: Riana Colon RN) gabapentin (NEURONTIN) capsule 300 mg (COMPLETED) 300 mg, Oral, ONCE, 1 dose, On Sat07/03/19 at 0945, Administer with SIP of H2O only., Day of Surgery (Day of Procedure), Routine 0931 (Given - Provid er: Riana Colon RN) Continuous Medication Order 07/01/2019 07/02/2019 07/03/2019 lactated ringers infusion (CANCELED) 1,000 mL, at 100 mL/hr, Intravenous, CONTINUOUS, Starting on Sat07/03/19 at 0945, Until Sat07/03/19 at 1659, Day of Surgery (Day of Procedure) 0940 (New Bag - Prov ider: Riana Colon RN)1056 (New Bag - Provider: Karlo Hsieh)1121 (Anesthesia Volume Adjustment - Provider: Karlo Hsieh)1248 (Anesthesia Volume Adjustment - Provider: Karlo Hsieh) PRN Medication Order 07/01/2019 07/02/2019 07/03/2019 HYDROmorphone (DILAUDID) injection 0.2-0.4 mg (CANCELED) 0.2-0.4 mg, Intravenous, EVERY 5 MIN PRN, Starting on Sat07/03/19 at 1252, Until Sat07/03/19 at 1659, Pain, Give 0.2 mg every 5 minutes PRN for mild to moderate pain (1-5) Give 0.4 mg every 5 minutes PRN for moderate to severe pain (6-10). Hold for respiratory rate less than 10 per minute. Maximum dose 4 mg over one hour. If multiple pain medications are ordered, start with hydromorphone or morphine and use fentanyl for breakthrough pain., PACU Recovery, Routine 1258 (Given - Provid er: Mary Iniguez RN)1324 (Given - Provider: Nitza Ervin RN) lidocaine-EPINEPHrine 1 %-1:200,000 injection (CANCELED) ONCE PRN, Starting on Sat07/03/19 at 1132, Until Sat07/03/19 at 1859, Intra-Operative (Intra-Procedure), Routine 1132 (Given - Provid er: Alexis Freed MD)1204 (Given - Provider: Alexis Freed MD)1209 (Given - Provider: Alexis Freed MD) oxyCODONE (ROXICODONE) immediate release tablet 5 mg (COMPLETED) 5 mg, Oral, EVERY 4 HOURS PRN, 1 dose, Starting on Sat07/03/19 at 1252, Until Sat07/03/19 at 1352, Pain, PACU Recovery, Routine 1352 (Given - Provid er: Mary Iniguez RN) oxymetazoline (AFRIN) 0.05 % nasal spray (CANCELED) Administer over 3 Days, ONCE PRN, Starting on Sat07/03/19 at 1148, Until Sat07/03/19 at 1859, Intra-Operative (Intra-Procedure), Routine 1148 (Given - Provid er: Alexis Freed MD - Comment: used topically on patties) promethazine (PHENERGAN) injection 12.5 mg (CANCELED) 12.5 mg, Intravenous, EVERY 30 MIN PRN, Nausea, Starting on Sat07/03/19 at 1252, 2 doses, Until Sat07/03/19 at 1659, VESICANT - Dilute with a minimum of 10 mL saline. LARGE VEIN only. Inject over 10 minutes into the farthest port of a running IV infusion. Remain with the patient and STOP infusion immediately if patient reports burning. Avoid extravasation. If multiple antiemetics are ordered, use ondansetron first and if ineffective use prochlorperazine second and if ineffective use promethazine., PACU Recovery 1352 (Given - Provid er: Mary Iniguez RN) documented in this encounter Care Teams Black Belt Relationship Specialty Start Date End Date Jax Conklin DNP [address] [facility] [address] [place] [address] PCP - General Family Medicine 03/31/19 06/16/21 documented as of this encounter
--- OUTSIDE RECORDS SUMMARY | 2024-09-14 17:33 | XMS_ITS | Encounter Summary ---
Author [facility] [address] Care Team Providers Care Fabricator Artificial Breast Name Role Phone Jax Conklin DNP Primary Care Provider [phone] Reason for Visit * Audiology Exam (Routine) - Closed Specialty Diagnoses / Procedures Referred By Contkit cueva Referred To Contact Audiology Diagnoses hearing aid evaluation with audiology as recommended by Procedures HEARING AID FITTING Jax Conklin DNP [address] [facility] [address] [place] [address] Meghan Carvalho [facility] [place] [address] Referral ID Status Reason Start Date Expiration Date Visits Re quested Visits Authorized [id number] Closed 08/06/2019 08/05/2020 1 1 Encounter Details Date Type Department Care Team (Latest Contact Info) Description 08/06/2019 9:30 AM EST Office Visit Audiology at [address] [phone] Meghan Carvalho [facility] [place] [address] Mixed conductive and sensorineural hearing loss, bilateral [...] Progress Notes * Meghan Carvalho, ELIUD - 08/06/2019 9:30 AM EST AUDIOLOGY SECTION HEARING AID FITTING REPORT Joaquim Dunn, 39 y.o., returns today for fitting of binaural JULIAN hearing aids. Actions Taken: ??? Hearing aids dispensed and programmed. Verification of hearing aid fit was completed via ubvv-wpj-efkpagbr (REM) and rueg-bmh-jnrriwu-difference (RECD). Hearing aid programming was adjusted to maximize audibility for soft and conversational speech without exceeding maximum power output targets. ??? A hearing aid orientation was carried out to include use, care and maintenance instructions. Realistic expectations and ajustment period reviewed. The blender operator's manual was provided, and the warranty/ return policy discussed. ?? Paired aids to phone and downloaded the mick. Plan: Follow-up visit in 2-3 weeks. AMPLIFICATION EQUIPMENT LIST: HEARING AID RIGHT LEFT Make/Model/Style Phonak Audeo M50 RT Phonak Audeo M50 RT Casing Color P3 [place] P3 [facility] Serial Number [id number] Battery Size Rechargeable Rechargeable Invoice number/date [id number] 07/13/19 [id number] 07/13/19 Other Comments PROGRAM/SETTINGS Fitting Algorithm DSL 5a DSL 5a Verification Method REM, RECD REM. RECD SII (w/65 dBSLP) unaided/aided 65/90 71/92 Programs Autosense OS Autosense OS Other Comments [employer] WARRANTY Original Fit Date 08/06/19 08/06/19 Current Status 10/10/21 10/10/21 EARMOLD (if BTE MERCEDES) Lab Earmold / Slim tube / JULIAN / Dome specifics Length 0M Small open dome Length 0M Small open dome Impression Date Invoice number/date Other Comments ACCESSORIES Make/Model (color) Promo: Mini global sales director Serial Number Warranty date Invoice number/date Settings Other Comments documented in this encounter Plan of Treatment Not on file documented as of this encounter Visit Diagnoses Diagnosis Mixed conductive and sensorineural hearing loss, bilateral Mixed hearing loss, bilateral documented in this encounter Care Teams Fabricator Artificial Breast Relationship Specialty Start Date End Date Jax Conklin DNP [address] [place] [address] PCP - General Family Medicine 03/31/19 06/16/21 documented as of this encounter
--- OUTSIDE RECORDS SUMMARY | 2024-09-14 17:33 | XMS_ITS | Encounter Summary ---
Author Organization Formerly [facility] [place] [address] Care Team Providers Care Pediatric Oncologist Name Role Phone Simona Jack APRN Primary Care Provider [phone] Reason for Visit * Consultation (Urgent) - Specialty Diagnoses / Procedures Referred By Contikt t Referred To Contact Otolaryngology Diagnoses EUSTACHIAN TUBE DYSFUNCTION BILATERAL Simona Jack APRN [address] [place] [address] [address] Alexis Freed MD [facility] [place] [address] Referral ID Status Reason Start Date Expiration Date V isits Requested Visits Authorized [id number] Consult, Test & Treat Connection Center 08/25/2018 08/25/2019 6 6 Encounter Details Date Type Department Care Team (Latest Contact Info) Description 10/30/2018 7:30 AM EDT Office Visit Audiology at [address] [address] Jany Navarro AUD [facility] [place] [place] [address] 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; Mixed conductive and sensorineural hearing loss of right ear with restricted hearing of left ear; Ear fullness, right Social History Tobacco Use Types Packs/Day Years Used Date Smoking Tobacco: Every Day Cigarettes 1 20 Smokeless Tobacco: Never Sex and Gender Information Value Date Recorded Sex Assigned at Female 04/13/2024 11:52 PM EDT Gender Identity Female 04/13/2024 11:52 PM EDT Sexual Orientation Not on file documented as of this encounter Progress Notes * Jany Navarro AUD - 10/30/2018 7:30 AM ED[place] [address] Joaquim Dunn was seen today for an audiologic evaluation prior to a consult with ENT. Please refer to audiogram under procedures for details on history, results and recommendations. Lyric Sepulveda Clinical Balance Wheel Hand Filer [facility] [place] [address] ; documented in this encounter Plan of Treatment Not on file documented as of this encounter Procedures Procedure Name Priority Date/Time Associated Diagnosis Comments COMPREHENSIVE HEARING TEST Routine 10/30/2018 7:21 AM EDT documented in this encounter Results * Comprehensive hearing test (10/30/2018 7:21 AM EDT) 10/30/2018 7:21 AM EDT Narrative AUDBASE COMP - 10/30/2018 7:21 AM EDT Audiologic re-evaluation and follow-up as per ENT. Use of good communication strategies (face to face communication, reduce background noise, repeat back what was heard) Procedure Note Unknown - 10/30/2018 Audiologic re-evaluation and follow-up as per ENT. 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
--- OUTSIDE RECORDS SUMMARY | 2024-09-14 17:33 | XMS_ITS | Encounter Summary ---
Author Organization [facility] Address [facility] [place] [address] Care Team Providers Care Rn Urology Name Role Phone Simona Jack APRN Primary [...] Expiration Date Visits Re quested Visits Authorized [id number] 1 1 Encounter Details Date Type Department Care Team (Late st Contact Info) Description 02/12/2019 9:29 AM EDT - 02/12/2019 11:44 AM EDT Surgery [place] [address] Alexis Freed MD [facility] [place] [address] MYRINGOPLASTY, SIMPLE (WRVU 6.03) Social History Tobacco Use Types Packs/Day Years [...] closest emergency room or call the hospital dinkey engine operator at [phone] and ask for physician aviation operations specialist covering for your physician. Questions or problems after 5pm or on a weekend: Call the [facility] dinkey engine operator at and ask for the physician aviation operations specialist covering for your doctor. * Patient Instructions* [...] months. They fall out on their own. detention - these stay in place longer than [...] ear plugs for swimming in ponds or pation, but pools or bath water are usually [...] needed for Pain. Ciclesonide (OMNARIS) 50 mcg [place], Non-Aerosol 2 sprays each nostril once daily [...] azelastine (ASTELIN) 137 mcg (0.1 %) Aerosol, [place] 2 sprays by Nasal route 2 times [...] GROSS MD, PGY5 02/12/19 9:16 AM Pager: [phone] documented in this encounter Miscellaneous Notes * Op Note - Mateus Gross MD - 02/12/2019 10:26 AM EDT [facility] Operative Note Patient Name: Joaquim Dunn : [id number] MR#: [id number] Case Date: 02/12/2019 Surgeon: Surgeon(s) and Role: [...] ear with effusion documented in this encounter Administered Medications Inactive Administered Medications - up to 3 most recent administrations Medication Order MAR Action Action Date Dose Rate Site ciprofloxacin-hydrocortisone (CIPRO HC OTIC) otic suspension ONCE PRN, Starting on Jasmin 02/12/19 at 0939, Until Jasmin 02/12/19 at 1329, Intra-Operative (Intra-Procedure), Routine Given 02/12/2019 10:18 AM EDT 3 drops Both Ears Given 02/12/2019 9:39 AM EDT 3 drops Ri ght Ear lactated ringers infusion 1,000 mL, at 100 [...] MD) documented in this encounter Care Teams Rn Urology Relationship Specialty Start Date End Date Simona Jack APRN PCP - General Family Medicine 08/25/18 03/18/19 documented as of this encounter
--- OUTSIDE RECORDS SUMMARY | 2024-09-14 17:33 | XMS_ITS | Encounter Summary ---
Author Organization [facility] [place] [address] Care Team Providers Care Extrusion Die Repair Manager Name Role Phone Katerin Jax Joseph [facility] Primary Care Provider Reason for Visit * Auth/Cert Specialty Diagnoses / Procedures Referred By Richard t Referred To Contact Diagnoses deviated nasal septum Procedures PRO REPAIR OF NASAL SEPTUM PRO EXCISION TURBINATE, SUBMUCOUS PRO UNLISTED PROCEDURE NOSE SEPTOPLASTY OR SMR, W/ OR W/O CARTILAGE SCORING, CONTOURING OR REPLACEMENT W/ GRAFT (WRVU 7.01) SMR INFERIOR TURBINATE, PARTIAL OR COMPLETE-DAVIN (WRVU 3.57) NASAL VALVE SUSPENSION (WRVU 7.55) Referral ID Status Reason Start Date Expiration Date Visits Re quested Visits Authorized [id number] 1 1 Encounter Details Date Type Department Care Team (Late st Contact Info) Description 07/03/2019 10:28 AM EST - 07/03/2019 12:26 PM EST Surgery [place] [phone] Alexis Freed MD [facility] [place] [address] SEPTOPLASTY OR SMR, W/ OR W/O CARTILAGE SCORING, CONTOURING OR REPLACEMENT W/ GRAFT (WRVU 7.01) Social History Tobacco Use Types Packs/Day Years [...] Sign Reading Time Taken Comments Blood Pressure 131/79 07/03/2019 9:17 AM EST Pulse 93 07/03/2019 9:17 AM EST Temperature 37 ??C (98.6 ??F) 07/03/2019 9:17 AM EST Respiratory Rate 16 07/03/2019 9:17 AM EST Oxygen Saturation 97% 07/03/2019 9:17 AM EST Inhaled Oxygen Concentration - - Weight [...] heavy lifting ??? No straining Things to crab picker from the pharmacy: Mupirocin ointment (or other [...] fevers The ENT clinic is available at [phone] -For urgent issues during evenings and weekends the ENT resident construction plumber can be reached through [facility] machine operator at [phone] Future Appointments Date Time Provider Department Center 07/08/2019 3:30 PM Meghan Carvalho AUD [facility] 08/04/2019 10:00 AM Alexis Freed MD [facility] 08/04/2019 1:00 PM Alexis Freed MD [facility] 08/06/2019 9:30 AM Meghan Carvalho AUD [facility] 08/20/2019 1:00 PM Meghan Carvalho [facility] 10/28/2019 8:00 AM Krisit Peters APRN [facility] documented in this encounter Medications at Time [...] needed for Pain. Ciclesonide (OMNARIS) 50 mcg [place], Non-Aerosol 2 sprays each nostril once daily [...] ASSESSMENT & PLAN Plan for septo/turb/nasal valve compliance lead graft Consent signed, dated, placed in chart Ok to proceed with scheduled operation. Lindy Hou MD, PGY3 07/03/19 10:28 AM Pager: [phone] documented in this encounter Miscellaneous Notes * Op Note - Alexis Freed MD - 07/03/2019 4:59 PM EST [facility] Operative Note Patient Name: Joaquim Dunn : [id number] MR#: [id number] Case Date: 07/03/2019 Surgeon: Surgeon(s) and Role: [...] valve collapse repaired with endonasal placement of compliance lead graft ?? Anesthesia: General Estimated Blood Loss: [...] upper lateral cartilage. I therefore created a compliance lead graft using some harvested quadrangular cartilage. This [...] the turbinate was bluntly outfractured with a [place] elevator. The same steps were then performed [...] Operative Note Patient Name: Joaquim Dunn : [id number] MR#: [id number] Case Date: 07/03/2019 Surgeon: Surgeon(s) and Role: [...] valve collapse repaired with endonasal placement of compliance lead graft Complications: none Intake: Intraprocedure Crystalloid Total [...] Date/Time Associated Diagnosis Comments Unlisted Procedure Nose (78594) 07/03/2019 11:00 AM EST Acquired deviated nasal septum Hypertrophy of both inferior nasal turbinates Submucous Resction Inferior Turbinate Partial/Complete (24017) 07/03/2019 11:00 AM EST Acquired deviated nasal septum Hypertrophy of both inferior nasal turbinates Septoplasty/Submucous Resection W/Wo Cartilage Graft (78939) 07/03/2019 11:00 AM EST Acquired deviated nasal septum Hypertrophy of both inferior nasal turbinates documented in this encounter Visit Diagnoses Diagnosis Acquired deviated nasal septum Deviated nasal septum Hypertrophy of both inferior nasal turbinates Hypertrophy of nasal turbinates documented in this encounter Administered Medications Inactive [...] 9:40 AM EST 1,000 mLs 100 mL/hr lidocaine-EPINEPHrine 1 %-1:200,000 injection ONCE PRN, Starting on Sat07/03/19 at 1132, Until Sat07/03/19 at 1859, Intra-Operative (Intra-Procedure), Routine Given 07/03/2019 12:09 PM EST 0.5 mLs 19- Surgical Site Given 07/03/2019 12:04 PM EST 1 mL 1 9- Surgical Site Given 07/03/2019 11:32 AM EST 5 mLs 1 9- Surgical Site oxyCODONE (ROXICODONE) immediate release tablet 5 mg 5 mg, Oral, EVERY 4 HOURS PRN, 1 dose, Starting on Sat07/03/19 at 1252, Until Sat07/03/19 at 1352, Pain, PACU Recovery, Routine Given 07/03/2019 1:52 PM EST 5 mg oxymetazoline (AFRIN) 0.05 % nasal spray Administer over 3 Days, ONCE PRN, Starting on Sat07/03/19 at 1148, Until Sat07/03/19 at 1859, Intra-Operative (Intra-Procedure), Routine Given 07/03/2019 11:48 AM EST 3 sprays promethazine (PHENERGAN) injection 12.5 mg 12.5 mg, [...] RN) documented in this encounter Care Teams Extrusion Die Repair Manager Relationship Specialty Start Date End Date Jax Conklin DNP [address] [place] [address] PCP - General Family Medicine 03/31/19 06/16/21 documented as of this encounter
--- OUTSIDE RECORDS SUMMARY | 2024-09-14 17:33 | XMS_ITS | Encounter Summary ---
[place] [address] Care Team Providers Care Chemistry Teacher Name Role Phone Katerin Jax Joseph DNP Primary Care Provider Reason for Visit * Reason Onset Date Comments Prior Authorization 05/07/2019 Encounter Details Date Type Department Care Team (Late st Contact Info) Description 05/07/2019 Tele[place] [phone] Riana Neves CCMA Prior Authorization Social History Tobacco Use Types Packs/Day Years [...] encounter Miscellaneous Notes * Telephone Encounter - Riana Neves CCMA - 05/07/2019 1:27 PM EDT Medication Prior Authorization 4L Gastroenterology / [place] [address] Subscriber Insurance: [place] Medicaid Phone: Fax: Physician: Antonia Walker Return [facility]: [facility] Phone: Fax: Medication Requested: Pantoprazole Strength: 40mg Frequency: Take 1 tablet by mouth twice daily (before meals) Disp.: 150 Refills: 0 Currently taking: Yes Once daily Diagnosis for this medication: GERD ICD-10 code: (K21.9) Prior medications trialed in this patient: Pantoprazole 40mg once daily, Omeprazole 20mg, Tums Medication: Outcome/Adverse Reactions:Treatment Failure Decision: Approved Tracking number/Case number/Reference number: [id number] Effective date: Start: 05/07/2019 End:08/06/2019 documented in this encounter Plan of Treatment Not on file documented as of this encounter Visit Diagnoses Not on filedocumented in this encounter Care Teams Chemistry Teacher Relationship Specialty Start Date End Date Jax Conklin DNP [address] [place] [address] PCP - General Family Medicine 03/31/19 06/16/21 documented as of this encounter
--- OUTSIDE RECORDS SUMMARY | 2024-09-14 17:33 | XMS_ITS | Encounter Summary ---
Author Organization [facility] Address [facility] [place] [address] Care Team Providers Care Manager Primary Name Role Phone Simona Jack APRN Primary Care Provider Reason for Referral * Consultation (Routine) - Closed Specialty Diagnoses / Procedures Referred By Richard cueva Referred To Contact Gastroenterology Diagnoses Gastroesophageal reflux disease, esophagitis presence not specified Motility - Patient with GERD symptoms on PPI. No relief with rantidine. Please evaluate and manage GERD. thanks. Caridad De Luna MD [facility] DR ALLERGY [facility] IMMUNOLOGY [address] [place] [address] Referral ID Status Reason Start Date Expiration Date V isits Requested Visits Authorized [id number] Closed Consult, Test & Treat 12/03/2018 12/03/2019 1 1 Reason for Visit * Reason Comments Establish Care * Allergy Testing (Routine) - Closed Specialty Diagnoses / Procedures Referred By Richard cueva Referred To Contact Allergy Diagnoses Chronic allergic rhinitis Eustachian tube disorder, bilateral Conductive hearing loss, bilateral Chronic otitis media of right ear with effusion Alexis Freed MD [facility] [place] [address] [facility] [address] [place] [address] Referral ID Status Reason Start Date Expiration Date V isits Requested Visits Authorized [id number] Closed Consult, Test & Treat 10/30/2018 10/30/2019 1 1 Encounter Details Date Type Department Care Team (Latest Contact Info) Description 12/03/2018 9:30 AM EDT [place] [address] Caridad De Luna MD Gastroesophageal reflux disease, esophagitis presence not specified; Chronic rhinitis; Mild intermittent asthma, uncomplicated; Elevated blood pressure reading; Cigarette nicotine dependence with nicotine-induced disorder Social [...] Sign Reading Time Taken Comments Blood Pressure 127/92 12/03/2018 9:34 AM EDT Pulse 91 12/03/2018 9:34 AM EDT Temperature - - Respiratory Rate - - Oxygen Saturation 100% 12/03/2018 9:34 AM EDT Inhaled Oxygen Concentration - - Weight 72.6 kg (160 lb) 12/03/2018 9:34 AM EDT Height 152.4 cm (5') 12/03/2018 9:34 AM EDT Body Mass Index 31.25 12/03/2018 9:34 AM EDT documented in this encounter Patient Instructions * Patient Instructions* Caridad De Luna MD - 12/03/2018 9:30 AM EDT - Continue Flonase 2 sprays in each nostril once daily. Nasal corticosteroid Administration Technique: - Opposite hand to opposite nostril - Always want the spray tip to point out. - Continue loratadine 10mg once daily. - Please hold antihistamines ( ie Zyrtec/ cetirizine, Dyan/ fexofenadine, Claritin/ loratadine, Benadryl/ diphenhydramine) for at least five days prior to your follow up appointment for allergy skin tests. - Continue albuterol 2 puffs every four to six hours as needed for asthma symptoms. - Continue to work on quitting to smoke. - Continue pantoprazole daily. Take at least 30 minutes prior to your first meal of the day. - Schedule referral to sole stainer for management of your reflux - Elevated blood pressure- Recommend continued monitoring and follow up with primary provider for further evaluation and management of elevated blood pressure documented in this encounter Progress Notes * Caridad De Luna MD - 12/03/2018 9:30 AM EDT Chief Complaint Patient presents with ??? Establish Care HPI The patient is a pleasant 38 y.o. year old female whose consultation was requested by . The reason for consultation is evaluation and management of allergies. ENT evaluation by Dr. Freed on 10/30/18: Diagnosed with allergic rhinitis, deviated nasal septum, turbinate hypertrophy and ? Chronic sinusitis and EDT. 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 He recommended bilateral T tubes and allergy referral. The patient has had decreased hearing since May 2018, right > Left. She had a hearing test that was signfificant for hearing loss. She has a constant postnasal drip, all year round. Present all day. Associated with occasional nasal congestion b/l. No anterior rhinorrhea or itchy eyes. No seasonal pattern. No anosmia. No otic drainage. When she started to have the hearing loss, she had frontal and b/l maxillary sinus pain b/l in May. She was not treated for infection. The sinus pain resolved on its own. She was treated with a course of Augmentin in May for her ear symptoms. She has about one sinus infection per infection. She had ear infections as a child. She has not hadear infections as an adult. No prior allergy testing. No prior allergy shots. She takes loratadine 10mg daily all year round for presumed allergies. She last took it last night.Loratadine has not helped with her hearing or postnasal drip. She takes Flonase 2 sprays/ nostril once daily sine 09/06. She has not noticed any change in her postnasal drip. She has GERD. She has heartburn and reflux on pantoprazole 40mg daily. She takes PPI prior to eating breakfast. Her reflux persisted after trial with ranitidine. She does not follow with GI of her symptoms. She has a history of exercise induced asthma. She was diagnosed with asthma as a child. She has notneeded to use albuterol in more than two years. She does not have an albuterol inhaler. No nocturnal awakenings, limitations in ADL, ER visits, hospitalizations or oral steroids for asthma as an adult. She is not up to date with flu shot by personal choice. She is a smoker. She has been smoking for 20 years. She smokes about one pack per week. She is interested in quitting. She is not working with her PCP to quit. No second hand smoke exposure. She has a dog that enters her bedroom. She has woodstove; not used in over two years. 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 Elevated blood pressure She had a panic attack prior to her visit. She has no history of HTN. No chest pain, SOB, vision changes or headaches. Review of Systems: All other systems reviewed and negative except as noted below: Review of Systems Constitution: Positive for weight gain. HENT: Ear fullness, decreased hearing, ringing, postnasal drip All other systems reviewed and are negative. Allergies, medications, past medical/ surgical history were reviewed and updated in [facility]. Allergies: Patient has no known allergies. Medications: Outpatient Medications Marked as Taking for the 12/03/18 encounter (Office Visit) with Yuridia De Luna MD Medication Sig Dispense Refill ??? fluticasone (FLONASE) 50 mcg/actuation [place], Suspension 1 spray daily. Indications: inflammation of [...] 5 mg by mouth 2 times daily. ??? [DISCONTINUED] loratadine 10 mg Capsule Take by mouth daily. Indications: inflammation of the nose due to an allergy Past Medical and Social History: Past Medical [...] on phone: None Gets together: None Attends episcopal service: None Active member of club or organization: None Attends meetings of clubs or organizations: None Relationship status: None ??? Intimate partner violence: Fear of current or ex partner: None Emotionally abused: None Physically abused: None Forced sexual activity: None Other Topics Concern ??? None Social History Narrative ??? None Physical Exam: Vital signs reviewed. Most Recent Vitals: 12/03/18 0934 BP: (!) 127/92 Pulse: 91 SpO2: 100% Normal Except General: - No apparent distress Eyes: - Conjunctivae without injection; - No eyelid swelling ENT: - No erythema of the tympanic membranes - Normal external ear canals - Nl nasal turbinates; - Oropharynx well hydrated without lesions or exudates; - Face & sinuses non-tender to palpation/percussion - Left nasal septal deviation - Edematous nasal mucosa bilaterally - Bilateral TM bulging with effusion. No erythema or drainage. Neck: - Symmetrical, no masses, trachea midline; [...] cyanosis, or edema Skin: - No rashes Neuro: - Nl gait and station Psych: - Nl and age appropriate mood and affect - Judgement and insight intact TESTS/PROCEDURES 12/03/18 Allergy skin test # test: 1 Interpretation: Negative histamine control. Took loratadine the night prior to appt. 12/03/2018 ACT score total 25 IMPRESSION/REPORT/PLAN # Chronic rhinitis # Hearing loss - Patient has hearing loss and middle ear effusion possible secondary to ETD. She has a history of allergies and rhinitis that may be contributing to her symptoms. Allergy testing was attempted today, however, she had a negative histamine control and needs to return to complete allergy testing. -Continue Flonase 2 sprays in each nostril once daily. Reviewed administration technique to minimize risk of nasal septal perforation and nosebleeds. -Continue loratadine 10 mg once daily. Hold for 5 days prior to skin test appointment. #Mild intermittent asthma - Clinically well controlled -Continue albuterol as needed for asthma symptoms -Continue to follow with primary care provider for management of asthma # GERD - Symptomatic on PPI - Discussed with patient that uncontrolled reflux can exacerbate sinusitis -Continue PPI medications and recommendations per PCP -Patient continues emergency room for evaluation and management of reflux # elevated blood pressure - No history of hypertension - Recommend continued monitoring follow-up with primary care provider for further evaluation and management # Nicotine Dependency The patient's symptoms are exacerbated by tobacco smoke exposure. Smoking cessation is strongly encouraged to decrease her allergy symptoms as well as other health and social consequences associated with smoking. The patient will follow up with her primary care provider to discuss further management options. Orders Placed This Encounter Procedures ??? Referral to Gastroenterology Medication ordered or changed during this encounter, will not show discontinued medications Medications ??? albuterol 90 mcg/actuation HFA Aerosol Inhaler Sig: Inhale 2 puffs into the lungs every 4 hours as needed for Wheezing, Shortness of Breath or Cough. Dispense: 1 Inhaler Refill: 1 Return in about 1 week (around 12/10/2018), or if symptoms worsen or fail to improve, for Allergy skin tests. e[facility] record was reviewed. Written instructions were [...] Scheduled Referrals Name Type Priority Associated Diagnoses Order Schedule Referral to Gastroenterology Outpatient Referral Routine Gastroesophageal reflux disease, esophagitis presence not specified Ordered: 12/03/2018 documented as of this encounter Visit Diagnoses Diagnosis Gastroesophageal reflux disease, esophagitis presence not specified Chronic rhinitis Mild intermittent asthma, uncomplicated Unspecified asthma Elevated blood pressure reading Elevated blood pressure reading without diagnosis of hypertension Cigarette nicotine dependence with nicotine-induced disorder Unspecified drug-induced mental disorder documented in this encounter Care Teams Manager Primary Relationship Specialty Start Date End Date Simona Jack APRN PCP - General Family Medicine 08/25/18 03/18/19 documented as of this encounter
--- OUTSIDE RECORDS SUMMARY | 2024-09-14 17:34 | XMS_ITS | Encounter Summary ---
[place] [address] Care Team Providers Care Hospital Housekeeper Name Role Phone Concepcion Stevenson APRN Primary Care Provider [phone] Encounter Details Date Type Department Care Team ([facility] st Contact Info) Description 04/24/2012 Orders [place] [address] Gabby Francisco MD Pain (Primary Dx) Social History Tobacco Use [...] pain documented in this encounter Care Teams Hospital Housekeeper Relationship Specialty Start Date End Date Concepcion Stevenson APRN [address] [place] [id number] PCP - General 07/11/10 08/24/18 documented as of this encounter
[2024-09-14 18:55] LABS: COMMENT (LAB VIEW ONLY) 96.66 mg/dL; Microalb ug/mg Crea 3.3 ug/mg Cr
== END 2024-09-14 17:30 | disposition home or self-care (01) ==
LOC: NCHCN 17:29
PROVIDERS: PCP Family Medicine; Visit Provider Family Medicine
DX: I10 Essential (primary) hypertension (principal)
CPT/HCPCS: 82043; 82570

== ENCOUNTER 2025-03-23 11:18 | Emergency (ER) | payer MEDICAID, SELFPAY ==
[2025-03-23 11:28] VITALS: BP 138/108; PULSE 93; RESP 18; TEMP 36.9; O2SAT 96
--- NOTE | 2025-03-23 11:30 | DI.RAD_ITS ---
Exam(s) XR FOOT LT COMPLETE XR ANKLE LT COMPLETE EXAM: XR FOOT LT COMPLETE and XR ankle LT complete CLINICAL HISTORY: L foot pain. TECHNIQUE: 2D digital imaging was performed of the left ankle and foot. Six images were obtained. AP, oblique and lateral views were obtained. COMPARISON: There are no priors for comparison. FINDINGS: BONES: There is a faint calcification lateral to the cuboid on the AP view. There does appear to be associated soft tissue swelling. No bony destructive lesion is seen. There is a small plantar calcaneal spur and small enthesophyte at the posterior calcaneus. JOINTS: No dislocation present. The ankle is well maintained. SOFT TISSUE: Normal. IMPRESSION: Small osseous density lateral to the cuboid on the AP view of the left foot. This may represent an accessory ossicle, soft tissue calcification or possibly a fracture. Please correlate with the patient's site of pain. DATA REPOSITORY: RADIATION DOSE DELIVERED:
--- NOTE | 2025-03-23 11:52 | W.ED.GENAD ---
Discharge Plan Disposition Patient Disposition: Home Condition: Stable Discharge Details Clinical Impression: Fracture of cuboid of left foot Primary Care Provider: [facility] ED Provider: Kevin Ramirez Home Meds and New Rx's Prescriptions: No Action sertraline 100 MG tablet 100 mg PO HS Bupropion HCl 100 MG tablet 150 mg PO BID Loratadine 10 MG TAB.RAPDIS 10 mg PO DAILY Discharge Instructions Instructions: Foot Fracture ED Additional Instructions: You were seen in the emergency department for possible subtle fracture of your left cuboid bone. The definitive way to make sure that this is a fracture or not a chronic finding on x-ray is to receive an outpatient x-ray in 7 to 10 days to look for signs of a healing acute fracture. Please remain in the cast boot until this time, you can partially weight-bear as tolerated. Please use therapeutic dosing of Tylenol (acetamenophen) & Advil (ibuprofen) in an alternating fashion as follows: Take 1000mg of Tylenol every 6 hours without missing doses- that is 4 times per day. Long Term in between the Tylenol dosings, take 400-600mg of Advil also on a 6 hour schedule, that is also 4 times per day. The daily maximum dosing of Tylenol is 4000mg, and the daily maximum dosing of Advil is 2400mg. This is safe to do for weeks. Please note that some common cold medications & prescription pain medications may contain acetamenophen and you need to read OTC drug labels and factor that in to maximum daily dosings. Please rest, ice, compress and elevate the foot often when at home. Please follow-up with orthopedics for any complications, please return to the emergency department for any signs of neurovascular compromise. Stand Alone Forms: Work Release Referrals: [facility] [Provider Group] Santa Rome MD [Primary Care Provider, Medicine] Discharge Data Discharge Date/Time-TO BE ENTERED AT DEPARTURE: 03/23/25 13:00 HPI General Date/Time Provider Initiated Documentation: 03/23/25 11:40. HPI Narrative: 44 year-old female presents to ED today by POV/ambulating with a chief complaint of L ankle pain- was walking down stairs and twisted it- lateral ankle/midfoot pain with onset just prior to arrival. Quality described as swelling just distal to anterolateral ankle, no radiation to numbness/tingling, redness, lesion, bruising, high ankle pain, knee pain, fall or head trauma. Severity is described as moderate. Palliating factors include nothing specific attempted. Provoking factors include weight-bearing. Events leading up to the incident/Associated Symptoms: Patient is R-foot dominant. Patient not anticoagulated. Related Data Home Medications ?Medication ?Instructions ?Recorded ?Confirmed Bupropion HCl 150 mg PO BID 02/12/17 03/23/25 Loratadine 10 mg PO DAILY 02/12/17 03/23/25 sertraline 100 mg tablet 100 mg PO HS 02/12/17 03/23/25 Allergies Allergy/AdvReac Type Severity Reaction Status Date / Time guaifenesin (From Quibron) Allergy Intermediate swelling/ra Unverified 03/23/25 11:30 sh theophylline (From Quibron) Allergy Intermediate swelling/ra Unverified 03/23/25 11:30 General Stated Complaint: Orthopedic CHRIS: 4 Review of Systems All systems reviewed & are unremarkable except as noted in HPI and below Exam Narrative Exam Narrative: GENERAL APPEARANCE: Well-nourished, non-toxic, awake and alert, atraumatic, no acute distress. SKIN: Warm, pink, dry, intact, without rashes/lesions/ulcerations. HEAD: Normocephalic, atraumatic, normal hair distribution for gender/age. EYES: Normal conjunctiva, no exudates on lids/lashes. ENT: Nares patent, no circumoral cyanosis, no facial swelling NECK: Supple, trachea midline, painless cervical ROM. LUNGS/CHEST: Non-labored respirations, normal A/P diameter, symmetrical expansion, no chest wall deformity HEART (CV/PV): Regular rate, no peripheral edema, no JVD. ABDOMEN: Soft, non-distended, no guarding. MSK: No deformity to bilateral UEs or LEs, moving all extremities without weakness save for minor ROM deficit L foot, no cyanosis, spine midline without tenderness, normal curvature, L FOOT: swelling just anterior to the lateral malleolus, no crepitus, sensation intact distally, L dorsalis pedis pulse 2+ NEURO: Mental Status AAOx4 - alert to person, place, time, events No facial droop, no forehead involvement. Motor: No focal weakness - strength 5/5 in bilateral UEs and LEs, proximal and distal, symmetric. Sensory: sensation intact to light touch globally. Gait antalgic PSYCH: euthymic, cooperative, pleasant, appropriate speech Course Vital Signs Vital signs: Vital Signs Temperature 36.9 C 03/23/25 11:28 Pulse 93 H 03/23/25 11:28 Respiratory Rate 18 03/23/25 11:28 Blood Pressure 138/108 H 03/23/25 11:28 Pulse Oximetry 96 03/23/25 11:28 Temperature 36.9 C 03/23/25 11:28 Pulse 93 H 03/23/25 11:28 Respiratory Rate 18 03/23/25 11:28 Blood Pressure 138/108 H 03/23/25 11:28 Pulse Oximetry 96 03/23/25 11:28 Oxygen Delivery Method Room Air 03/23/25 11:28 Oxygen Flow Rate 0 03/23/25 11:28 Medical Decision Making This dictation utilizes [id number] dictation software and may contain unedited grammatical errors. 44 year-old female presents to ED today by POV/ambulating with a chief complaint of L ankle pain- was walking down stairs and twisted it- lateral ankle/midfoot pain with onset just prior to arrival. Quality described as swelling just distal to anterolateral ankle, no radiation to numbness/tingling, redness, lesion, bruising, high ankle pain, knee pain, fall or head trauma. Severity is described as moderate. Palliating factors include nothing specific attempted. Provoking factors include weight-bearing. Events leading up to the incident/Associated Symptoms: Patient is R-foot dominant. Patients' medical history: Noncontributory. Family and social history: Noncontributory. Pertinent exam findings / vital signs include swelling just anterior to the lateral malleolus, no crepitus, sensation intact distally, L dorsalis pedis pulse 2+. Differential / pathologies of concern include fracture, sprain/strain. Diagnostic studies of: -XR R Foot & Ankle - shows possible fracture of cuboid bone, non-displaced. Interventions of: -short boot - recommend repeat XR in 7-10days, RICE and APAP/NSAIDs. ED Course/Assessment/Plan: 44-year-old female presents after twisting her ankle stairs, has questionable fracture on x-ray of the cuboid bone very small and nondisplaced, treating as fracture until she can obtain routine x-rays to see if there is any changes to the area and signs of cyst formation. Placed in a short boot, patient has crutches at home, recommend RICE therapy NKHS Tylenol and ibuprofen, follow-up with orthopedics for any complications, return to ER for signs of neurovascular compromise. Findings not consistent with displaced fracture, neurovascular compromise. Disposition of Fracture of Cuboid Bone of Left Foot. Patient verbalized understanding of the plan and return to ED criteria and engaged in shared decision making. Medical Records Medical records reviewed: Yes I reviewed the patient's medical records. Imaging Data Radiologic Study: Attestation: I personally reviewed and interpreted this imaging study as follows: Imaging: X-Ray Radiologist's impression: EXAM: XR FOOT LT COMPLETE and XR ankle LT complete CLINICAL HISTORY: L foot pain. TECHNIQUE: 2D digital imaging was performed of the left ankle and foot. Six images were obtained. AP, oblique and lateral views were obtained. COMPARISON: There are no priors for comparison. FINDINGS: BONES: There is a faint calcification lateral to the cuboid on the AP view. There does appear to be associated soft tissue swelling. No bony destructive lesion is seen. There is a small plantar calcaneal spur and small enthesophyte at the posterior calcaneus. JOINTS: No dislocation present. The ankle is well maintained. SOFT TISSUE: Normal. IMPRESSION: Small osseous density lateral to the cuboid on the AP view of the left foot. This may represent an accessory ossicle, soft tissue calcification or possibly a fracture. Please correlate with the patient's site of pain. PFSH All Active Problems (Updated 03/23/25 @ 12:32 by CAL Valladares) Fracture of cuboid of left foot (Acute) Medical History (Updated 03/23/25 @ 12:32 by CAL Valladares) Tobacco use Pt advised to quit. Precontemplative stage of quitting. Hyperlipidemia Depression stable. OAB (overactive bladder) stable with meds. Contraceptive management Pt wants to stop Nuva Ring and have permanent sterilization. Surgical History (Updated 06/04/18 @ 14:36 by [facility]) Dilation and curettage Family History (Updated 02/13/17 @ 11:02 by Norma Dhillon MD) Other Hyperlipidemia Social History Smoking/Tobacco Use Status: Current every day Tobacco Type: cigarettes Smoking risk assessment performed?: Yes Drug use: Daily Substance use type: marijuana Do you feel safe at home: Yes Do you feel safe in your relationship?: Yes
[2025-03-23] MEDS: Ibuprofen 400 MG TAB PO (12:54)
[2025-03-23] MEDS: Acetaminophen 500 MG TAB 1000 MG PO (12:55)
[2025-03-23 12:56] VITALS: BP 135/91; PULSE 89; O2SAT 100
--- NOTE | 2025-03-24 09:37 | NUR.NOTE ---
Chart accessed to complete surgicare requisition.Nursing Note:
== END 2025-03-23 13:00 | disposition home or self-care (01) ==
LOC: ER 12:50
PROVIDERS: Emergency Provider Physician Assistant; PCP Family Medicine
DX: S92.215A Nondisplaced fracture of cuboid bone of left foot, initial encounter for closed fracture (principal); X50.1XXA Overexertion from prolonged static or awkward postures, initial encounter; Y93.01 Activity, walking, marching and hiking
CPT/HCPCS: 99283; 73610; 73630